=== PATIENT | female | born 1940 | race Caucasian/White ===

== ENCOUNTER 2023-04-24 23:13 | Inpatient (IN) | payer MEDICARE, BC, SELFPAY ==
[2023-04-24] VITALS (11 sets, daily range): BP systolic 100–142; BP diastolic 36–77
[2023-04-24 22:15] LABS: % Basophils 0.3 % (0-2); % Eosinophils 0.6 % (0-6); % Immature Granulocytes 1.2 % (0-0.5); % Lymphocytes 14.3 % (20.5-51.1); % Monocytes 6.1 % (1.7-9.3); % Neutrophils 77.5 % (42.2-75.2); Absolute Eosinophils 0.1 10^3/uL (0-0.7); Absolute Immature Granulocytes 0.1 10^3/uL (0-0.05); Absolute Lymphocytes 1.3 10^3/uL (1.2-3.4); Absolute Monocytes 0.6 10^3/uL (0.1-0.6); Absolute Neutrophils 6.9 10^3/uL (1.4-6.5); Hematocrit 38.6 % (37.0-47.0); Hemoglobin 12.5 g/dL (12.0-16.0); Mean Corp Hgb Conc. 32.4 g/dL (33.0-37.0); Mean Corpuscular Hgb 26.6 pg (27.0-31.0); Mean Corpuscular Volume 82.1 fL (81.0-99.0); Nucleated Red Blood Cells % 0 %; Red Cell Dist. Width 18.6 % (11.5-14.5)
[2023-04-24 22:26] LABS: ALT (SGPT) 40 U/L (0-35); AST (SGOT) 29 U/L (14-36); Albumin 2.5 g/dl (3.5-5.0); Alkaline Phosphatase 79 U/L (38-126); Blood Urea Nitrogen 19 mg/dl (7-17); Calcium 9.5 mg/dl (8.4-10.2); Carbon Dioxide 33 mmol/L (22-30); Chloride 98 mmol/L (98-107); Glucose 115 mg/dl (70-99); Platelet Count 16 10^3/uL (130-400); Potassium 3.5 mmol/L (3.5-5.1); Sodium 134 mmol/L (135-145); Total Bilirubin 1.1 mg/dl (0.2-1.3); Total Protein 6.4 g/dl (6.3-8.2); eGFR > 60.00
--- NOTE | 2023-04-24 22:55 | ED.GENMED ---
History of Present Illness
General
Chief Complaint: Abnormal Lab Value
Source: patient, family (Abilio Bal via telephone), physician (Dr. Darrius Mayfield,transfer records) and shelter records
Exam Limitations: dementia
Time Seen by Provider: 04/24/23 22:05
Nursing documentation reviewed up to this point in time: agreed with
Travel History
Have you had any contact with someone who has COVID-19?: No
Do you have any symptoms of coronavirus? Fever > 100 degrees, chills, cough, shortness of breath, sore throat, loss of taste or smell, muscle aches, or headache?: No
History of Present Illness
History of Present Illness:
Patient resident of [facility] dementia unit, scented today for severe thrombocytopenia. Her platelet levels were drawn as an outpatient today. They were 12. Nursing sent her into the emergency department for evaluation. Patient has past
medical history significant for PEs, hypertension, cirrhosis, colitis. She is a poor historian and history is limited to previous records.
Past History
Past History
ED Past Medical History: HTN and Other
ED Past Surgical History: None
Social History
Tobacco: Non-smoker
Alcohol: None
Drug: None
Personal:
Living: with family
Review of Systems
Review of Systems
Allergies reviewed?: Yes
Unable to obtain full review of systems at this time due to: dementia
All Other Systems: Not applicable
Constitutional: Reports fatigue
Phy Exam
General Physical Exam
General Presentation: well appearing and mild distress
General age: appears older than age
General Skin: warm and dry
General Mental: alert, confused and usual mental status
General Hydration: appears well hydrated
Cardiovascular Exam
Cardiovascular Exam: regular rate/rhythm
Pulmonary Exam
Pulmonary Exam: lungs clear and no respiratory distress
Gastrointestinal Exam
Gastrointestinal Exam: normal bowel sounds and non tender
Neurological Exam
Neurological Exam: confused
Musculoskeletal Exam
Musculoskeletal Exam: full ROM
Skin Exam
Skin Exam: pallor
Psychiatric Exam
Psychiatric Exam: labile
Course
Orders/Labs/Results
Orders:
Orders
04/24/23 21:55
IV Insert/Care/Rem.- Treatment PRN
04/24/23 22:05
Type+Screen Urgent
Complete Blood Count/With Diff Urgent
Comprehensive Metabolic Panel Urgent
04/24/23 22:56
Blood Bank Products [* Blood Bank Products] Urgent
Blood Bank Products: *Plt Single Donor Leuko
Quantity: 1
Transfuse Today: Yes
Reason: Thrombocytopenia
04/24/23 23:13
Admit/Transfer Patient As Directed
Co-Sign Provider:
Level of Care: Inpatient admission
Assign to:: Medical/Surgical
Physician / Group: marva
Diagnosis: thrombocytopenia
Reason for Hospitalization: thrombocytopenia
Expected length of stay greater than two midnights?: Yes
ELOS- Estimated Length of Stay in days: 2
I certify the patient meets the requirements for IP care: Yes
04/24/23 23:14
Code Status As Directed
Resuscitation Status: Full Code
Abnormal Lab Results
04/24/23
22:05
MCH 26.6 L pg
(27.0-31.0)
MCHC 32.4 L g/dL
(33.0-37.0)
RDW 18.6 H %
(11.5-14.5)
Plt Count 16 L* 10^3/uL
(130-400)
Abs Immat Gran (auto) 0.1 H 10^3/uL
(0-0.05)
Absolute Neuts (auto) 6.9 H 10^3/uL
(1.4-6.5)
Immature Gran % 1.2 H %
(0-0.5)
Neutrophils % 77.5 H %
(42.2-75.2)
Lymphocytes % 14.3 L %
(20.5-51.1)
Sodium 134 L mmol/L
(135-145)
Carbon Dioxide 33 H mmol/L
(22-30)
BUN 19 H mg/dl
(7-17)
Glucose 115 H mg/dl
(70-99)
ALT 40 H U/L
(0-35)
Albumin 2.5 L g/dl
(3.5-5.0)
04/24/23 22:05
04/24/23 22:05
Vital Signs
Initial and Last Documented VS:
Initial Vital Signs
Pulse Resp BP Pulse Ox
80 17 100/36 93
04/24/23 21:55 04/24/23 21:55 04/24/23 21:55 04/24/23 21:55
Last Documented Vital Signs
Temp Pulse Resp BP Pulse Ox
98.2 F 81 20 142/68 95
04/24/23 23:26 04/24/23 23:26 04/24/23 23:26 04/24/23 23:26 04/24/23 23:11
*Critical Care Note
Total Time (30-74mins, 75-104mins- exclusive of procedures): Not Applicable
Update Note
Update Note:
Spoke with Abilio Schwartz, who gave verbal consent for blood administration specifically platelets. This was witnessed over the phone by nursing. Consent is on the chart.
ED Attending Note
-
Portions of this chart may have been created with voice recognition software.� Occasional wrong word or��sound alike� substitutions may have occurred due to the inherent limitations of voice recognition software.
Discharge Plan
Departure
Patient Disposition: Admit
Date of Disposition: 04/24/23
Time of Disposition: 23:16
Admit to: Telemetry
Presentation/result/management discussed w/ accepting MD/DO: Hospitalist
Discharge Problem:
Thrombocytopenia, Dementia
Prescriptions:
No Action
metoprolol succinate 50 MG tablet extended release 24 hr
50 mg PO DAILY
mesalamine [Lialda] 1.2 GM tablet,delayed release (DR/EC)
2.4 g PO DAILY
furosemide 40 mg Tablet
40 mg PO DAILY
acetaminophen 325 mg Tablet
650 mg PO Q6H PRN (Reason: mild pain/temp>100)
ipratropium-albuterol 0.5 mg-3 mg(2.5 mg base)/3 mL Solution For Nebulization
3 ml INHALATION R BID
diltiazem HCl [Cardizem CD] 240 mg Capsule,Extended Release 24hr
240 mg PO DAILY
olanzapine [Zyprexa] 5 mg Tablet
5 mg PO HS
Triad Wound Dressing Paste
1 applic TOPICAL TID
Rx Instructions:
apply to inner buttocks
triamcinolone acetonide 0.1 % cream
1 applic TOPICAL BID
Rx Instructions:
apply to b/l LE for skin irritation
magnesium hydroxide [Milk of Magnesia] 400 mg/5 mL Suspension
30 ml PO HS PRN (Reason: if no bm x 3 days)
bisacodyl [Dulcolax (bisacodyl)] 10 mg Suppository
10 mg MD DAILY PRN (Reason: if no results for MOM)
cephalexin [Keflex] 500 mg Capsule
500 mg PO TID
nystatin 100,000 unit/gram Powder
1 applic TOPICAL DAILY
Rx Instructions:
apply to abdominal folds
losartan 100 mg Tablet
100 mg PO DAILY
aripiprazole [Abilify] 10 mg Tablet
10 mg PO DAILY
melatonin 5 mg Tablet
5 mg PO HS
Myrbetriq 50 mg tablet extended release 24 hr
50 mg PO DAILY
Interventions
Interventions:
*Risk Screen - Suicide Last Done: 04/24/23 21:55
*General Assessment Last Done: 04/24/23 21:55
*Neglect/Abuse Screening Last Done: 04/24/23 21:55
ED- Fall Risk Assessment Last Done: 04/24/23 21:55
*ED COVID-19 Vaccine History Last Done: 04/24/23 21:55
--- NOTE | 2023-04-24 23:15 | HPS.HSE ---
Addendum entered and electronically signed by Valentine Hawk MD 04/24/23 23:46:
Discussed with at bedside. Patient was apparently started on a new dementia medication 2 weeks ago. She was also started on Keflex within the past few days for what was thought to be worsening of her lymphedema on the right lower
extremity. Toes on the right foot purple discoloration without any foul smell or tenderness or discharge. There is also purpuric rash extending up the right leg. I am inclined to think this is due to thrombocytopenia rather than infection.
Continue Keflex.
denies any history of low platelets or history of blood transfusions.
Original Note:
Family Physician
-
Family Physician:
Chief Complaint
-
thrombocytopenia
History of Present Illness
82-year-old female past medical history of dementia, pulmonary embolism, primary biliary cirrhosis, ulcerative colitis, GERD, hypertension, diverticulosis, obesity presenting with thrombocytopenia presenting from [facility] dementia unit for
severe thrombocytopenia. She had outpatient labs which showed thrombocytopenia with platelets of 12 so she was sent to the emergency room.
Patient cannot provide any history due to dementia. Her is going to come to the hospital soon. She does not know why she is in the hospital. She denies any pain or bleeding.
Medical History
Past Medical History
Past Medical History: Reports Other (dementia, pulmonary embolism, primary biliary cirrhosis, ulcerative colitis, GERD, hypertension, diverticulosis, obesity)
Past Surgical History: Reports None
Social History
Tobacco: Non-smoker
Alcohol: None
Drug: None
Family History
Family History: Not pertinent
Allergies / Home Medications
Allergies reflects when Allergies were last updated in [facility].
Home Medications with original date entered in [facility]
Allergy/Medication List:
Allergies
Allergy/AdvReac Type Severity Reaction Status Date / Time
No Known Allergies Allergy Verified 05/16/18 10:34
Home Medications
mesalamine 1.2 gram tablet,delayed release (Lialda) 2.4 g PO DAILY 05/16/18
metoprolol succinate 50 mg tablet,extended release 24 hr 50 mg PO DAILY 05/16/18
acetaminophen 325 mg tablet 650 mg PO Q6H PRN mild pain/temp>100 04/24/23
aripiprazole 10 mg tablet (Abilify) 10 mg PO DAILY 04/24/23
bisacodyl 10 mg rectal suppository (Dulcolax (bisacodyl)) 10 mg ME DAILY PRN if no results for MOM 04/24/23
cephalexin 500 mg capsule 500 mg PO TID 04/24/23
diltiazem HCl 240 mg capsule,extended release 24 hr (Cardizem CD) 240 mg PO DAILY 04/24/23
furosemide 40 mg tablet 40 mg PO DAILY 04/24/23
ipratropium 0.5 mg-albuterol 3 mg (2.5 mg base)/3 mL nebulization soln 3 ml inhalation R BID 04/24/23
losartan 100 mg tablet 100 mg PO DAILY 04/24/23
magnesium hydroxide 400 mg/5 mL oral suspension (Milk of Magnesia) 30 ml PO HS PRN if no bm x 3 days 04/24/23
melatonin 5 mg tablet 5 mg PO HS 04/24/23
mirabegron 50 mg tablet,extended release 24 hr (Myrbetriq) 50 mg PO DAILY 04/24/23
nystatin 100,000 unit/gram topical powder 1 applic topical DAILY 04/24/23
olanzapine 5 mg tablet (Zyprexa) 5 mg PO HS 04/24/23
triamcinolone acetonide 0.1 % topical cream 1 applic topical BID 04/24/23
wound dressings (Triad Wound Dressing paste) 1 applic topical TID 04/24/23
Review of Systems
-
History Source: Patient
A 12 point ROS was completed and negative except as noted: Yes
Constitutional: Reports No Symptoms
EENT: Reports No Symptoms
Respiratory: Reports No Symptoms
Cardiac: Reports No Symptoms
Abdomen/GI: Reports No Symptoms
: Reports No Symptoms
Musculoskeletal: Reports No Symptoms
Skin: Reports No Symptoms
Neurological: Reports No Symptoms
Endocrine: Reports No Symptoms
Hematologic/Lymphatic: Reports No Symptoms
Psych: Reports No Symptoms
Physical Exam
Vital Signs
Vital Signs
Temp Pulse Resp BP Pulse Ox
98.3 F 79 18 131/77 95
04/24/23 23:11 04/24/23 23:11 04/24/23 23:11 04/24/23 23:11 04/24/23 23:11
Physical Exam
General: Well Developed, Well Nourished and No Apparent Distress
HEENT: NormoCephalic, Moist mucous membranes and Atraumatic
Respiratory: Clear
Cardiac: S1/S2 and Regular Rhythm; No Murmur or Rub
GI: Soft, Non Tender, Non Distended and Normal Bowel Sounds; No Organomegaly
Rectal: Deferred by Provider
Musculoskeletal: No Clubbing, No Cyanosis and No Edema
Skin: No Rash
Neuro: Nonfocal/grossly intact
Laboratory Results
-
04/24/23 22:05
04/24/23 22:05
Laboratory Results
Total Bilirubin 1.1 mg/dl (0.2-1.3) 04/24/23 22:05
AST 29 U/L (14-36) 04/24/23 22:05
ALT 40 U/L (0-35) H 04/24/23 22:05
Alkaline Phosphatase 79 U/L (38-126) 04/24/23 22:05
Data Reviewed
-
Lab Data: Labs Reviewed by me
Old Records: Reviewed
Impression/Plan
-
IMPRESSION:
PLAN:
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
-Platelets of 16 from 12 from outpatient labs
-No evidence of bleeding apart from mild bruising lower extremities and abdomen
-1 unit platelet transfusion
-Need to get further history from and primary care records as no history available currently
-Hematology consulted
# Currently on Keflex
-History unable to be obtained at this time regarding this
Primary biliary cirrhosis
Ulcerative colitis
-Continue mesalamine
History of pulmonary embolism
Chronic lymphedema
-Continue topical wound care
-Continue Lasix
GERD
Essential hypertension
-Continue diltiazem, losartan, metoprolol
Diverticulosis
Obesity
Dementia
Psychiatric
-Continue Abilify, olanzapine
Full code
DVT prophylaxis�none
Regular diet
[2023-04-25] VITALS (8 sets, daily range): BP systolic 125–173; BP diastolic 50–100
--- NOTE | 2023-04-25 01:10 | PTCARENOTE ---
Pt arrived from ED via stretcher to bed. Pt is AAOx2 disoriented to time, VSS, w/o complaints of pain. Pt is oriented to room, resting comfortably with call rios within reach and spouse at bedside.
[2023-04-25 02:59] LABS: COVID-19 Antigen Negative (Negative)
[2023-04-25 07:09] LABS: % Basophils 0.7 % (0-2); % Eosinophils 1.1 % (0-6); % Immature Granulocytes 1.1 % (0-0.5); % Lymphocytes 17.9 % (20.5-51.1); % Neutrophils 72.2 % (42.2-75.2); Absolute Eosinophils 0.1 10^3/uL (0-0.7); Absolute Immature Granulocytes 0.1 10^3/uL (0-0.05); Absolute Lymphocytes 1.1 10^3/uL (1.2-3.4); Absolute Monocytes 0.4 10^3/uL (0.1-0.6); Absolute Neutrophils 4.4 10^3/uL (1.4-6.5); Hematocrit 35.8 % (37.0-47.0); Hemoglobin 11.4 g/dL (12.0-16.0); Mean Corp Hgb Conc. 31.8 g/dL (33.0-37.0); Mean Corpuscular Hgb 26.6 pg (27.0-31.0); Mean Corpuscular Volume 83.4 fL (81.0-99.0); Nucleated Red Blood Cells % 0 %; Red Blood Cell Count 4.29 10^6/uL (4.20-5.40); Red Cell Dist. Width 18.6 % (11.5-14.5); White Blood Cell Count 6.1 10^3/uL (4.8-10.8)
[2023-04-25 07:13] LABS: Platelet Count 12 10^3/uL (130-400)
[2023-04-25 07:34] LABS: ALT (SGPT) 34 U/L (0-35); AST (SGOT) 24 U/L (14-36); Albumin 2.1 g/dl (3.5-5.0); Alkaline Phosphatase 71 U/L (38-126); Blood Urea Nitrogen 15 mg/dl (7-17); Calcium 8.9 mg/dl (8.4-10.2); Carbon Dioxide 31 mmol/L (22-30); Chloride 100 mmol/L (98-107); Glucose 94 mg/dl (70-99); Potassium 3.4 mmol/L (3.5-5.1); Sodium 134 mmol/L (135-145); Total Bilirubin 0.9 mg/dl (0.2-1.3); Total Protein 5.5 g/dl (6.3-8.2); eGFR > 60.00
[2023-04-25] MEDS: DUONEB INH (07:37)
--- NOTE | 2023-04-25 08:50 | CON.ONC ---
Addendum entered and electronically signed by Abilio Cervantes MD 04/25/23 11:56:
Hematology Addendum:
Patient seen and examined, agree w/ CHIEF CREDIT OFFICER note and plan as outlined.
-reviewed chart from [facility] hospitalization in February - on 03/15 - plts were 274,000
-peripheral blood smear was reviewed - no evidence of microangiopathic RBC changes
-reticulocyte count normal/ LDH just above upper limit of normal
-keflex started recently at [place] for cellulitis - stop keflex
-acute thrombocytopenia in the setting of recent keflex for cellulitis vs. ITP vs. component of infection/ inflammation w/ cellulitis
-drug induced thrombocytopenia does not respond well to steroids - though w/ ITP on differential- will start moderate dose steroids
-dexamethasone 10mg x1
-would like to avoid high dose dexamethasone w/ significant edema and question of ongoing cellulitis
-could consider ID consult for assistance w/ management of cellulitis
-transfuse 1 unit single donor plts today
-follow CBC
Original Note:
Impression
Impression
Acute thrombocytopenia
Bilateral PE started on Lovenox at [facility] (03/15/2023)
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
Heparin exposure during admission (02/2023)
Chronic lymphedema
Hx biliary cirrhosis
Advanced dementia
Morbid obesity
Plan
Plan
2/2 Platelets 12
s/p 1unit PLTs
Transfuse as needed to maintain PLT >10
Bleeding precautions
Follow CBC w/ diff daily
Discontinue Keflex
Hold Lovenox
Avoid heparin
Review peripheral blood smear
Consider steroids/IVIG
Additional labs pending
Records reviewed from [facility]
We will follow.
Patient History
History of Present Illness
Tran Chaney is an 82 year old female who presented to the ER last evening 04/24 from [facility] due to abnormal outpatient CBC with platelet count of 12. She was recently admitted at [facility] on 03/15/23 for bilateral PE. She was on a
heparin gtt transitioned to Lovenox. Platelets during the [facility] admission were at baseline of 274. She was evaluated by Dr. Gee with [facility] while admitted. She has also been evaluated in the past by Dr. Jeremias Tyler with [facility] in 2016
for PE. She was prescribed Eliquis at the time. This PE event was provoked by car travel to [place]. She has history of UC. It was recommended she continue lifelong anticoagulation however there is questionable compliance due to dementia and
refusal to take medications at times. Thrombophilia testing was not performed. She was prescribed Keflex in March (unclear date) for presumed lower extremity cellulitis. Keflex is being held at this time.
Past-Medical/Surgical History
Advanced dementia
Hx pulmonary embolism (2015, 2022)
Primary biliary cirrhosis
[place]
Fatty liver
Chronic lymphedema
GERD
Hypertension
Ulcerative colitis (mesalamine)
Diverticulosis
Morbid obesity
Patient Medication
Medication Instructions Recorded Confirmed Last Taken Type
mesalamine 1.2 gram tablet,delayed 2.4 g PO DAILY 05/16/18 04/24/23 Unknown History
release (Lialda)
metoprolol succinate 50 mg 50 mg PO DAILY 05/16/18 04/24/23 Unknown History
tablet,extended release 24 hr
acetaminophen 325 mg tablet 650 mg PO Q6H PRN mild 04/24/23 04/24/23 Unknown History
pain/temp>100
aripiprazole 10 mg tablet (Abilify) 10 mg PO DAILY 04/24/23 04/24/23 Unknown History
bisacodyl 10 mg rectal suppository 10 mg [place] DAILY PRN if no results 04/24/23 04/24/23 Unknown History
(Dulcolax (bisacodyl)) for MOM
cephalexin 500 mg capsule 500 mg PO TID 04/24/23 04/24/23 Unknown History
diltiazem HCl 240 mg 240 mg PO DAILY 04/24/23 04/24/23 Unknown History
capsule,extended release 24 hr
(Cardizem CD)
furosemide 40 mg tablet 40 mg PO DAILY 04/24/23 04/24/23 Unknown History
ipratropium 0.5 mg-albuterol 3 mg 3 ml inhalation R BID 04/24/23 04/24/23 Unknown History
(2.5 mg base)/3 mL nebulization
soln
losartan 100 mg tablet 100 mg PO DAILY 04/24/23 04/24/23 Unknown History
magnesium hydroxide 400 mg/5 mL 30 ml PO HS PRN if no bm x 3 days 04/24/23 04/24/23 Unknown History
oral suspension (Milk of Magnesia)
melatonin 5 mg tablet 5 mg PO HS 04/24/23 04/24/23 Unknown History
mirabegron 50 mg tablet,extended 50 mg PO DAILY 04/24/23 04/24/23 Unknown History
release 24 hr (Myrbetriq)
nystatin 100,000 unit/gram topical 1 applic topical DAILY 04/24/23 04/24/23 Unknown History
powder
olanzapine 5 mg tablet (Zyprexa) 5 mg PO HS 04/24/23 04/24/23 Unknown History
triamcinolone acetonide 0.1 % 1 applic topical BID 04/24/23 04/24/23 Unknown History
topical cream
wound dressings (Triad Wound 1 applic topical TID 04/24/23 04/24/23 Unknown History
Dressing paste)
Active Medications
Generic Name Dose Route Start Last Admin
Trade Name Freq PRN Reason Stop Dose Admin
Acetaminophen 650 mg 04/25/23 00:47
Acetaminophen 325 Mg Tablet PO 05/23/23 00:46
Q6H PRN
mild pain/temp>100
Albuterol/Ipratropium 3 ml 04/25/23 08:00 04/25/23 07:37
Ipratropium 0.5/Albuterol 3 Mg (3 Ml Ampul) INH 05/23/23 07:59 Not Given
R BID RENEE
Protocol
Aripiprazole 10 mg 04/25/23 08:00
Aripiprazole 10 Mg Tablet PO 05/23/23 07:59
DAILY RENEE
Bisacodyl 10 mg 04/25/23 00:47
Bisacodyl 10 Mg Rectal Suppository RECTAL 05/23/23 00:46
DAILY PRN
if no results for MOM
Cephalexin HCl 500 mg 04/25/23 08:00
Cephalexin 500 Mg Capsule PO
TID RENEE
Diltiazem HCl 240 mg 04/25/23 08:00
Diltiazem 240 Mg Extended Release (24 H) Capsule PO 05/23/23 07:59
DAILY RENEE
Furosemide 40 mg 04/25/23 08:00
Furosemide 40 Mg Tablet PO 05/23/23 07:59
DAILY RENEE
Losartan Potassium 100 mg 04/25/23 08:00
Losartan 100 Mg Tablet PO 05/23/23 07:59
DAILY RENEE
Magnesium Hydroxide 30 ml 04/25/23 00:47
Milk Of Magnesia 30 Ml Cup PO 05/23/23 00:46
HS PRN
if no bm x 3 days
Melatonin 5 mg 04/25/23 22:00
Melatonin 5 Mg Tablet PO 05/23/23 21:59
HS RENEE
Metoprolol Succinate 50 mg 04/25/23 08:00
Metoprolol 50 Mg Extended Release Tablet PO 05/23/23 07:59
DAILY RENEE
Miconazole Nitrate 1 applic 04/25/23 08:00
Miconazole Powder Bottle TOPICAL 05/23/23 07:59
DAILY RENEE
*Pom* (Mesalamine [ 2.4 grams 04/25/23 08:00
Lialda] 1.2 Gm PO 05/23/23 07:59
Tablet,Delayed DAILY RENEE
Release (Dr/Ec))
*Pom* (Wound 1 applic 04/25/23 08:00
Dressings [Triad TOPICAL 05/23/23 07:59
Wound Dressing] TID RENEE
Paste)
Olanzapine 5 mg 04/25/23 22:00
Olanzapine 5 Mg Tablet PO 05/23/23 21:59
HS RENEE
Sodium Chloride 0 flush 04/25/23 01:00
Sodium Chloride 0.9% (Flush) Syringe IV 05/23/23 00:59
PER PROTOCOL RENEE
Tolterodine Tartrate 4 mg 04/25/23 08:00
Tolterodine 4 Mg Extended Release Capsule PO 05/23/23 07:59
DAILY RENEE
Triamcinolone Acetonide 1 applic 04/25/23 08:00
Tramcinolone Acetonide 0.1% (Cream) 15 Gram Tube TOPICAL 05/23/23 07:59
BID RENEE
Review of Systems
-
Unable to obtain full review of systems at this time due to: Dementia and Acuity
History Source: Snf, Transfer Record, Physician and Coordinated Provider
Constitutional: Reports No Symptoms
EENT: Reports No Symptoms
Respiratory: Reports No Symptoms
Cardiac: Reports No Symptoms
GI: Reports No Symptoms
Breast: Reports N/A
: Reports No Symptoms
Musculoskeletal: Reports Edema
Skin: Reports Rash and Sores
Neuro: Reports No Symptoms
Endocrine: Reports No Symptoms
Hematologic/Lymphatic: Reports Bruising and Lymphedema
Allergy / Immunology: Reports No Symptoms
Psych: Reports Anxious
Physical Exam
-
RN and WOCN at bedside performing AM care. patient is turned on her side. Reviewed [facility] medical records with hospitalist
General: Well Developed, Well Nourished, No Apparent Distress, Appears Chronically Ill and Morbidly Obese; Negative Fever or Chills
Cardiology: Normal Sinus Rhythm
Pulmonary: Other (diminished)
GI: Other (obese)
Genito-Urinary: Other (incontinent)
Musculoskeletal: Edema, Right Lower Extrem (+3 pitting) and Edema, Left Lower Extrem (+3 pitting)
Extremities: Pulses Present and Edema
Neurology: Non Focal
Skin: Warm, Rash (erythema b/l legs), Ulcers and Other (toe wounds)
Hematologic / Lymphatic: Lymphadenopathy (b/l legs)
Psych: Confused
Labs
Lab Results
WBC 6.1 10^3/uL (4.8-10.8) 04/25/23 06:40
RBC 4.29 10^6/uL (4.20-5.40) 04/25/23 06:40
Hgb 11.4 g/dL (12.0-16.0) L 04/25/23 06:40
Hct 35.8 % (37.0-47.0) L 04/25/23 06:40
MCV 83.4 fL (81.0-99.0) 04/25/23 06:40
MCH 26.6 pg (27.0-31.0) L 04/25/23 06:40
MCHC 31.8 g/dL (33.0-37.0) L 04/25/23 06:40
RDW 18.6 % (11.5-14.5) H 04/25/23 06:40
Plt Count 12 10^3/uL (130-400) L* D 04/25/23 06:40
MPV Not Reportable 04/25/23 06:40
Abs Immat Gran (auto) 0.1 10^3/uL (0-0.05) H 04/25/23 06:40
Absolute Neuts (auto) 4.4 10^3/uL (1.4-6.5) 04/25/23 06:40
Absolute Lymphs (auto) 1.1 10^3/uL (1.2-3.4) L 04/25/23 06:40
Absolute Monos (auto) 0.4 10^3/uL (0.1-0.6) 04/25/23 06:40
Absolute Eos (auto) 0.1 10^3/uL (0-0.7) 04/25/23 06:40
Absolute Basos (auto) 0.0 10^3/uL (0-0.2) 04/25/23 06:40
Immature Gran % 1.1 % (0-0.5) H 04/25/23 06:40
Neutrophils % 72.2 % (42.2-75.2) 04/25/23 06:40
Lymphocytes % 17.9 % (20.5-51.1) L 04/25/23 06:40
Monocytes % 7.0 % (1.7-9.3) 04/25/23 06:40
Eosinophils % 1.1 % (0-6) 04/25/23 06:40
Basophils % 0.7 % (0-2) 04/25/23 06:40
Creatinine 0.6 mg/dL (0.6-1.0) 04/25/23 06:40
4Ts Score for Heparin-Induced Thrombocytopenia from [email or web address] on 04/25/2023
All calculations should be rechecked by clinician prior to use
RESULT SUMMARY:
5 points
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
Vital Signs
Vital Signs
Temp Pulse Resp BP Pulse Ox
98.8 F 72 20 151/69 92
04/25/23 07:20 04/25/23 07:20 04/25/23 07:20 04/25/23 07:20 04/25/23 07:20
[2023-04-25] MEDS: LASIX 40 MG PO (09:41)
[2023-04-25] MEDS: CARDIZEM CD 240 MG PO (09:41)
[2023-04-25] MEDS: KCL ELIXIR 40 MEQ PO (09:42)
[2023-04-25] MEDS: TOPROL XL 50 MG PO (09:42)
[2023-04-25] MEDS: DETROL LA 4 MG PO (09:43)
[2023-04-25] MEDS: ABILIFY 10 MG PO (09:43)
[2023-04-25] MEDS: COZAAR 100 MG PO (09:43)
[2023-04-25] MEDS: DESENEX/MITRAZOL/ZEASORB 1 APPLIC TOPICAL ×2 (10:04→22:12)
[2023-04-25] MEDS: ARISTOCORT/TRIAMCINOLONE 0.1% CREAM 1 APPLIC TOPICAL ×2 (10:06→22:09)
--- NOTE | 2023-04-25 10:18 | WOUNDNOTE ---
L THIGH (UPPER ANTERIOR MEDIAL)
--- NOTE | 2023-04-25 10:18 | WOUNDNOTE ---
SACRAL/COCCYX/BUTTOCKS
--- NOTE | 2023-04-25 10:19 | WOUNDNOTE ---
LEGS (POSTERIOR)(with photo flash)
--- NOTE | 2023-04-25 10:20 | WOUNDNOTE ---
[facility] RN note: Patient admitted with thrombocytopenia, platelet count 12, purpura rash RLE/foot/toes. Patient admitted from [facility].
See H&P for complete history.
PMH: LE lymphedema (on po Keflex), dementia, PE, biliary cirrhosis, ulcerative colitis, diverticulitis, obesity.
Wound Location and type/assessment: Patient admitted with: stage 3 vs unstageable lower sacral/coccyx/buttocks pressure injuries with yellow fibrin slough and some pink tissue. MASD breast folds, groin folds. L anterior upper medial thigh red skin
r/t friction and moisture. R dorsal 2,3, 4th toes with blood blisters, trace ss drainage. R lateral posterior calf with scattered pink dermal ulcers r/t edema. R lateral heel brown dry ulcer suspect dried blood blister (stage 2 vs unstageable).
+Purpura R medial lower thigh, RLE. L lateral calf with several small scabbed ulcers r/t lymphedema. +Hemosiderosis Le's. +3 LE edema. Pedal pulses heard via portable Doppler (R>L), toes warm. R posterior thigh linear deep dermal ulcer, pink and
scabbed suspect r/t edema and friction. L posterior hip skin lesion, no redness, no drainage ( freddie?). L heel blanchable red. Bruises lower abdomen. R elbow scabbed abrasions.
Appetite: good.
Pressure redistribution devices in place: [employer] Accumax. Patient cannot turn self in bed.
Plan: Silicone foam applied to sacral/coccyx/buttocks and R posterior thigh wounds. Le's cleansed with saline, Triamcinolone cream applied. R toes blisters cleansed gently with saline then no sting barrier wipe. Foam dressing applied to heels.
Waffle air overlay applied and patient turned to R semi side lying position with help from RN Juana and PCT July. Dr. Kelsey was in during visit who evaluated patient; discussed LE edema and hospitalist stated no compression at this time d/t low
platelets; hospitalist approved local skin/wound care. Le's elevated off bed with pillows with air chair cushion on top.
Care plan to be updated and will follow as needed.
Note to case management of equipment requested for discharge: Air mattress at SNF if not already in place.
Recommend follow up at wound care center upon discharge.
--- NOTE | 2023-04-25 10:20 | WOUNDNOTE ---
R BREAST FOLD (OUTER)
--- NOTE | 2023-04-25 10:21 | WOUNDNOTE ---
R 4TH TOE (PLANTAR)
--- NOTE | 2023-04-25 10:23 | WOUNDNOTE ---
SACRAL/COCCYX/BUTTOCKS (with photo flash)
--- NOTE | 2023-04-25 10:23 | WOUNDNOTE ---
[facility] RN note: Patient admitted with thrombocytopenia, platelet count 12, purpura rash RLE/foot/toes. Patient [place] [facility]
See H&P for complete history.
PMH: LE lymphedema (on po Keflex), dementia, PE, biliary cirrhosis, ulcerative colitis, diverticulitis, obesity.
Wound Location and type/assessment: Patient admitted with: stage 3 vs unstageable lower sacral/coccyx/buttocks pressure injuries with yellow fibrin slough and some pink tissue. MASD breast folds, groin folds. L anterior upper medial thigh red skin
r/t friction and moisture. R dorsal 2,3, 4th toes with blood blisters, trace ss drainage. R lateral heel brown dry ulcer suspect dried blood blister (stage 2 vs unstageable). +Purpura R medial lower thigh, RLE. L lateral calf with several small
scabbed ulcers r/t lymphedema. +Hemosiderosis Le's. +3 LE edema. Pedal pulses heard via portable Doppler (R>L), toes warm. R posterior thigh linear deep dermal ulcer, pink and scabbed suspect r/t edema and friction. L posterior hip skin lesion, no
redness, no drainage ( freddie?). L heel blanchable red. Bruises lower abdomen. R elbow scabbed abrasions.
Appetite: good.
Pressure redistribution devices in place: [employer] Accumax. Patient cannot turn self in bed.
Plan: Silicone foam applied to sacral/coccyx/buttocks and R posterior thigh wounds. Le's cleansed with saline, Triamcinolone cream applied. R toes blisters cleansed gently with saline then no sting barrier wipe. Foam dressing applied to heels.
Waffle air overlay applied and patient turned to R semi side lying position with help from RN Juana and PCT July. Dr. Kelsey was in during visit who evaluated patient; discussed LE edema and hospitalist stated no compression at this time d/t low
platelets; hospitalist approved local skin/wound care. Le's elevated off bed with pillows with air chair cushion on top.
Care plan to be updated and will follow as needed.
Note to case management of equipment requested for discharge: Air mattress at SNF if not already in place.
Recommend follow up at wound care center upon discharge.
[2023-04-25 10:34] LABS: Reticulocyte Count 1.6 % (0.4-2.8)
[2023-04-25 10:41] LABS: PT 15.1 Sec (11.4-14.6)
[2023-04-25 10:50] LABS: D-Dimer 10.08 ug/mlFEU (0.00-0.50)
[2023-04-25 10:59] LABS: LDH 250 U/L (120-246)
[2023-04-25 11:10] LABS: Fibrinogen 438 MG/DL (199-459)
--- NOTE | 2023-04-25 12:15 | CM ---
Chart reviewed. Spoke with pt and at bedside.
Pt is currently at [facility] short term.
Plan is to return to [facility]
Spoke with Jazmine at [facility] - pt is short term to [facility]
Pt seen by wound care - recommending air mattress for wound
Jazmine made aware
Referral sent in care port
Plan - return to [facility] when medically ready
[2023-04-25] MEDS: DECADRON 10 MG IV (13:05)
--- NOTE | 2023-04-25 13:26 | W.PN.HOSP.TC ---
Addendum entered and electronically signed by Russel Kelsey MD 04/26/23 13:03:
IGG
Original Note:
Today's Communication/Plan
-
f/u ITP labs
Platelets today
Steroids
Monitor CBC
Assessment / Plan
Assessment / Plan
Physical Exam
General: Well Developed, Well Nourished and No Apparent Distress
HEENT: NormoCephalic, Moist mucous membranes and Atraumatic
Respiratory: Clear
Cardiac: S1/S2 and Regular Rhythm; No Murmur or Rub
GI: Soft, Non Tender, Non Distended and Normal Bowel Sounds; No Organomegaly
Rectal: Deferred by Provider
Musculoskeletal: No Clubbing, No Cyanosis and No Edema
Skin: No Rash
Neuro: Nonfocal/grossly intact
PLAN:
# Severe thrombocytopenia possibly ITP unclear etiology v infection/inflammation v drug induced
-Platelets of 16 from 12 from outpatient labs
-Possibly secondary to Keflex although could have many culprits
� Was supposed to be on Lovenox for PE in February 2023, platelets were 274,000 at that time
� No evidence of microangiopathic RBC changes on smear
-No evidence of bleeding apart from mild bruising lower extremities and abdomen
-1 unit platelet transfusion
-Start dexadrone, moderate dose steroids thereafter
-heme on board
-F/u cbc
# Currently on Keflex
-Stop abx
-legs b/l have erythema/purpura
- i do not believe this is celluitis; mor likely PVD in patient with chronic lymphedema
-Pulses palpable and LE not cold
#Hypokalemia
-monitor and replete
#Hyponatremia
-mild
-ctm
Primary biliary cirrhosis
Ulcerative colitis
-Continue mesalamine
History of pulmonary embolism
Chronic lymphedema
-Continue topical wound care
-Continue Lasix
GERD
Essential hypertension
-Continue diltiazem, losartan, metoprolol
Diverticulosis
Obesity
Dementia
Psychiatric
-Continue Abilify, olanzapine
Full code
DVT prophylaxis�none
Regular diet
Anticipated Discharge: > 48 hours
Subjective/Interval History
-
Date of Service: April 25, 2023
stop cephalexin. s/p 1u platelets
Objective Data
-
Labs:
Laboratory Results
04/25/23 04/25/23
06:40 10:15
WBC 6.1
Hgb 11.4 L
Hct 35.8 L
Plt Count 12 L* D
PT 15.1 H
INR 1.20
Sodium 134 L
Potassium 3.4 L
Chloride 100
Carbon Dioxide 31 H
BUN 15
Creatinine 0.6
Glucose 94
Calcium 8.9
Total Bilirubin 0.9
AST 24
ALT 34
Alkaline Phosphatase 71
Vital Signs:
Vital Signs
Temp Pulse Resp BP Pulse Ox
98.8 F 80 20 150/82 92
04/25/23 07:20 04/25/23 09:41 04/25/23 07:20 04/25/23 09:41 04/25/23 07:20
I&O
04/24/23 04/25/23 04/26/23
06:59 06:59 06:59
Intake Total 251 / 251
Output Total 300 / 300
Balance -49 / -49
Review of Systems
-
History Source: Patient
All other systems: Not reviewed unless documented
Data Reviewed
-
CT Scan: Image personally visualized and interpreted and Report Reviewed by me
Labs: Labs Reviewed by me
[2023-04-25] MEDS: DUONEB 3 ML INH (19:33)
[2023-04-25] MEDS: ZYPREXA 5 MG IM (21:30)
[2023-04-25] MEDS: MELATONIN PO (22:06)
[2023-04-26] VITALS (10 sets, daily range): BP systolic 120–143; BP diastolic 59–77
[2023-04-26] MEDS: ZYPREXA 5 MG IM ×2 (02:13→21:35)
[2023-04-26 07:34] LABS: % Basophils 0.1 % (0-2); % Immature Granulocytes 1.3 % (0-0.5); % Lymphocytes 8.3 % (20.5-51.1); % Monocytes 1.8 % (1.7-9.3); % Neutrophils 88.5 % (42.2-75.2); Absolute Immature Granulocytes 0.1 10^3/uL (0-0.05); Absolute Lymphocytes 0.8 10^3/uL (1.2-3.4); Absolute Monocytes 0.2 10^3/uL (0.1-0.6); Absolute Neutrophils 8.2 10^3/uL (1.4-6.5); Hematocrit 41.9 % (37.0-47.0); Hemoglobin 13.3 g/dL (12.0-16.0); Mean Corp Hgb Conc. 31.7 g/dL (33.0-37.0); Mean Corpuscular Hgb 26.9 pg (27.0-31.0); Mean Corpuscular Volume 84.8 fL (81.0-99.0); Nucleated Red Blood Cells % 0 %; Red Blood Cell Count 4.94 10^6/uL (4.20-5.40); Red Cell Dist. Width 18.2 % (11.5-14.5); White Blood Cell Count 9.3 10^3/uL (4.8-10.8)
[2023-04-26 08:02] LABS: Platelet Count 19 10^3/uL (130-400)
[2023-04-26] MEDS: LASIX 40 MG PO (08:06)
[2023-04-26] MEDS: CARDIZEM CD 240 MG PO (08:06)
[2023-04-26] MEDS: ABILIFY 10 MG PO (08:06)
[2023-04-26] MEDS: DETROL LA 4 MG PO (08:06)
[2023-04-26] MEDS: TOPROL XL 50 MG PO (08:07)
[2023-04-26] MEDS: COZAAR 100 MG PO (08:07)
[2023-04-26] MEDS: ARISTOCORT/TRIAMCINOLONE 0.1% CREAM 1 APPLIC TOPICAL ×2 (08:08→21:25)
[2023-04-26] MEDS: DESENEX/MITRAZOL/ZEASORB 1 APPLIC TOPICAL ×2 (08:08→21:26)
[2023-04-26 08:16] LABS: ALT (SGPT) 43 U/L (0-35); AST (SGOT) 25 U/L (14-36); Albumin 2.8 g/dl (3.5-5.0); Alkaline Phosphatase 90 U/L (38-126); Blood Urea Nitrogen 16 mg/dl (7-17); Calcium 9.9 mg/dl (8.4-10.2); Carbon Dioxide 34 mmol/L (22-30); Chloride 97 mmol/L (98-107); Glucose 142 mg/dl (70-99); Magnesium 2.3 mg/dl (1.6-2.3); Potassium 3.6 mmol/L (3.5-5.1); Sodium 137 mmol/L (135-145); Total Protein 6.9 g/dl (6.3-8.2); eGFR > 60.00
--- NOTE | 2023-04-26 08:30 | PTCARENOTE ---
Dr. Kelsey notified this AM, night baker reported pt. removed IV x 2. Non-violent soft limb restraints removed at 0400 per night baker. Pt. platelets 19 this AM. Order placed to restart soft limb restraints at this time. IV placed by TAMIKO Hagen with
IV team. Pt. pleasant but confused, resting in bed. Will continue to monitor and report on pt.
[2023-04-26] MEDS: DUONEB INH ×2 (08:32→19:21)
--- NOTE | 2023-04-26 11:35 | W.PN.ONC ---
Today's Communication / Plan
-
Suboptimal response to platelet transfusion 19 K
Difficult to ascertain the impact of a single dose of steroids
Light of infection proceed with gammaglobulin rather than steroid corticosteroids possible ITP
HIT probability 14%
Transfuse as needed to maintain PLT >10 in a controlled environment
Bleeding precautions
Follow CBC w/ diff daily
Discontinue Keflex
Hold Lovenox
Avoid heparin
Review peripheral blood smear
Platelet antibody, APL and HIT pending
Impression
Impression
Acute thrombocytopenia
Bilateral PE started on Lovenox at [facility] (03/15/2023)
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
Heparin exposure during admission (02/2023)
Chronic lymphedema
Hx biliary cirrhosis
Advanced dementia
Morbid obesity
Plan
Plan
Gammaglobulin x 3 days
Monitor CBC
No additional steroids now
Subjective/Objective
Subjective/Objective
Patient reports no bleeding. Significantly demented and disoriented.
Vital Signs:
Vital Signs
Temp Pulse Resp BP Pulse Ox
97.8 F 76 18 128/77 94
04/26/23 07:42 04/26/23 08:06 04/26/23 07:42 04/26/23 08:06 04/26/23 08:10
Physical exam unchanged
Lab Results:
Laboratory Data
WBC 9.3 10^3/uL (4.8-10.8) 04/26/23 06:20
Hgb 13.3 g/dL (12.0-16.0) 04/26/23 06:20
Plt Count 19 10^3/uL (130-400) L* D 04/26/23 06:20
PT 15.1 Sec (11.4-14.6) H 04/25/23 10:15
INR 1.20 04/25/23 10:15
eGFR > 60.00 04/26/23 06:20
--- NOTE | 2023-04-26 12:59 | W.PN.HOSP.TC ---
Today's Communication/Plan
-
steroids
monitor platelets
heme recs
Assessment / Plan
Assessment / Plan
Physical Exam
General: Well Developed, Well Nourished and No Apparent Distress
HEENT: NormoCephalic, Moist mucous membranes and Atraumatic
Respiratory: Clear
Cardiac: S1/S2 and Regular Rhythm; No Murmur or Rub
GI: Soft, Non Tender, Non Distended and Normal Bowel Sounds; No Organomegaly
Rectal: Deferred by Provider
Musculoskeletal: No Clubbing, No Cyanosis and No Edema
Skin: No Rash
Neuro: Nonfocal/grossly intact
PLAN:
# Severe thrombocytopenia possibly ITP unclear etiology v infection/inflammation v drug induced
-Possibly secondary to Keflex although could have many culprits
� Was supposed to be on Lovenox for PE in February 2023, platelets were 274,000 at that time
� No evidence of microangiopathic RBC changes on smear
-No evidence of bleeding apart from mild bruising lower extremities and abdomen
-1 unit platelet transfusion 2/2
-Start decadron as per hematology, moderate dose steroids thereafter
-heme on board
-F/u cbc
# Currently on Keflex
-Stop abx
-legs b/l have erythema/purpura
- i do not believe this is celluitis; more likely PVD in patient with chronic lymphedema and poor wound care
-Pulses palpable and LE not cold
-cont to monitor off abx
#Hypokalemia
-monitor and replete
#Hyponatremia
-mild
-ctm
Primary biliary cirrhosis
Ulcerative colitis
-Continue mesalamine
History of pulmonary embolism
Chronic lymphedema
-Continue topical wound care
-Continue Lasix
GERD
Essential hypertension
-Continue diltiazem, losartan, metoprolol
Diverticulosis
Obesity
Dementia
Psychiatric
-Continue Abilify, olanzapine
Full code
DVT prophylaxis�none
Regular diet
Anticipated Discharge: > 48 hours
Subjective/Interval History
-
Date of Service: April 26, 2023
no acute events
Objective Data
-
Labs:
Laboratory Results
04/26/23
06:20
WBC 9.3
Hgb 13.3
Hct 41.9
Plt Count 19 L* D
Sodium 137
Potassium 3.6
Chloride 97 L
Carbon Dioxide 34 H
BUN 16
Creatinine 0.5 L
Glucose 142 H
Calcium 9.9
Total Bilirubin 1.0
AST 25
ALT 43 H
Alkaline Phosphatase 90
Vital Signs:
Vital Signs
Temp Pulse Resp BP Pulse Ox
97.8 F 76 18 128/77 94
04/26/23 07:42 04/26/23 08:06 04/26/23 07:42 04/26/23 08:06 04/26/23 08:10
I&O
04/25/23 04/26/23 04/27/23
06:59 06:59 06:59
Intake Total 251 / 251 910 / 910
Output Total 300 / 300 1550 / 1550
Balance -49 / -49 -640 / -640
Review of Systems
-
History Source: Patient
All other systems: Not reviewed unless documented
Data Reviewed
-
CT Scan: Image personally visualized and interpreted and Report Reviewed by me
Labs: Labs Reviewed by me
[2023-04-26] MEDS: GAMMAGARD 300 IV (13:35)
[2023-04-26 17:47] LABS: Platelet Antibody, Direct IgG Negative (Negative); Platelet Antibody, Direct IgM Strong Pos (Negative)
[2023-04-26] MEDS: DUONEB 3 ML INH (19:28)
[2023-04-26] MEDS: STERILE WATER FOR INJECTION 2.10000000000000009 ML IM (21:34)
[2023-04-26] MEDS: MELATONIN PO (21:59)
[2023-04-26 22:22] LABS: Haptoglobin 208 mg/dL (30-200)
--- NOTE | 2023-04-26 22:30 | PTCARENOTE ---
Patient very agitated and uncooperative. She would not take her medication. She is very confused, she believes she is in her house. She is screaming for Silvio, she is also yelling 'help me' very loudly.At present she will not let me near her, or she
tries to kick me. Bilateral wrist restraints intact, she did pull out her INT, she is also hitting and grabbing the staff when they come near her. [employer] aware of patient not take her oral zyprexa, she ordered 5mg IM which was given at 2130, presently
an hour later she continues to yell and scream.
--- NOTE | 2023-04-26 23:30 | PTCARENOTE ---
Presently patient is asleep and quite.
--- NOTE | 2023-04-27 02:43 | W.PN.UPDATE ---
Update Note
Progress Note Update
time for po zyprexa changed to 1800. Last couple night pt with and by time zyprexa is due she is too agitated and combative and refuses to take. Will try earlier dosing of po zyprexa in hopes pt will be more cooperative.
[2023-04-27] MEDS: ZYPREXA 5 MG IM ×2 (03:56→22:42)
[2023-04-27 06:00] VITALS: BMI 42.4
[2023-04-27 07:31] VITALS: BP 154/77
[2023-04-27] MEDS: DUONEB 3 ML INH ×2 (07:35→20:39)
[2023-04-27 08:30] LABS: Hematocrit 40.3 % (37.0-47.0); Mean Corp Hgb Conc. 32.3 g/dL (33.0-37.0); Mean Corpuscular Hgb 26.7 pg (27.0-31.0); Mean Corpuscular Volume 82.9 fL (81.0-99.0); Platelet Count 38 10^3/uL (130-400); Red Blood Cell Count 4.86 10^6/uL (4.20-5.40); Red Cell Dist. Width 18.5 % (11.5-14.5); White Blood Cell Count 11.9 10^3/uL (4.8-10.8)
[2023-04-27] MEDS: CARDIZEM CD PO (09:28)
[2023-04-27] MEDS: ABILIFY PO (09:28)
[2023-04-27] MEDS: COZAAR PO (09:29)
[2023-04-27] MEDS: LASIX PO (09:29)
[2023-04-27] MEDS: TOPROL XL PO (09:29)
[2023-04-27] MEDS: DETROL LA PO (09:29)
--- NOTE | 2023-04-27 10:22 | W.PN.ONC ---
Today's Communication / Plan
-
Continue with the second treatment of gammaglobulin 30 g dosing
Platelets responded 38 K
Hold additional steroids for now while recovering from cellulitis
Follow CBC
Impression
Impression
Acute thrombocytopenia
Bilateral PE started on Lovenox at [facility] (03/15/2023)
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
Heparin exposure during admission (02/2023)
Chronic lymphedema
Hx biliary cirrhosis
Advanced dementia
Morbid obesity
Plan
Plan
Gammaglobulin x 3 days
Monitor CBC
No additional steroids now
Subjective/Objective
Subjective/Objective
Continued confusion.
Vital Signs:
Vital Signs
Temp Pulse Resp BP Pulse Ox
97.3 F 89 16 154/77 91
04/27/23 08:32 04/27/23 07:38 04/27/23 07:38 04/27/23 07:31 04/27/23 07:38
PE: Lower extremity swelling and erythema slightly improved otherwise unchanged
Lab Results:
Laboratory Data
WBC 11.9 10^3/uL (4.8-10.8) H 04/27/23 08:19
Hgb 13.0 g/dL (12.0-16.0) 04/27/23 08:19
Plt Count 38 10^3/uL (130-400) L D 04/27/23 08:19
PT 15.1 Sec (11.4-14.6) H 04/25/23 10:15
INR 1.20 04/25/23 10:15
eGFR Cancelled 04/27/23 08:19
Orders
Orders
Orders From Last 24 Hours
04/26/23 14:00
Immune Globulin 30 Grams/300Ml [Gammagard] 30 grams in 300 ml IV PER PROTOCOL
--- NOTE | 2023-04-27 11:06 | CM ---
per Attending; tentative DC tomorrow, 04/28; return to [facility]
[2023-04-27] MEDS: DETROL LA 4 MG PO (11:16)
[2023-04-27] MEDS: LASIX 40 MG PO (11:16)
[2023-04-27] MEDS: CARDIZEM CD 240 MG PO (11:16)
[2023-04-27] MEDS: TOPROL XL 50 MG PO (11:16)
[2023-04-27] MEDS: COZAAR 100 MG PO (11:16)
[2023-04-27] MEDS: ABILIFY 10 MG PO (11:17)
[2023-04-27] MEDS: ARISTOCORT/TRIAMCINOLONE 0.1% CREAM 1 APPLIC TOPICAL ×2 (11:24→20:52)
[2023-04-27] MEDS: DESENEX/MITRAZOL/ZEASORB 1 APPLIC TOPICAL ×2 (11:25→20:52)
--- NOTE | 2023-04-27 13:01 | W.PN.HOSP.TC ---
Today's Communication/Plan
-
IGG today
monitor cbc
Assessment / Plan
Assessment / Plan
Physical Exam
General: Well Developed, Well Nourished and No Apparent Distress
HEENT: NormoCephalic, Moist mucous membranes and Atraumatic
Respiratory: Clear
Cardiac: S1/S2 and Regular Rhythm; No Murmur or Rub
GI: Soft, Non Tender, Non Distended and Normal Bowel Sounds; No Organomegaly
Rectal: Deferred by Provider
Musculoskeletal: No Clubbing, No Cyanosis and No Edema
Skin: No Rash
Neuro: Nonfocal/grossly intact
PLAN:
# Severe thrombocytopenia possibly ITP unclear etiology v infection/inflammation v drug induced
-Possibly secondary to Keflex although could have many culprits
� Was supposed to be on Lovenox for PE in February 2023, platelets were 274,000 at that time
� No evidence of microangiopathic RBC changes on smear
-No evidence of bleeding apart from mild bruising lower extremities and abdomen
-1 unit platelet transfusion 2/2
-no steroids as per Heme
-Started IGG 2/3 - complete 3 day course: responding well
-heme on board
-F/u cbc
# Currently on Keflex
-Stop abx
-legs b/l have erythema/purpura - improving today
- i do not believe this is celluitis; more likely PVD in patient with chronic lymphedema and poor wound care
-Pulses palpable and LE not cold
-cont to monitor off abx
#Hypokalemia
-monitor and replete
#Hyponatremia
-mild
-ctm
Primary biliary cirrhosis
Ulcerative colitis
-Continue mesalamine
History of pulmonary embolism
Chronic lymphedema
-Continue topical wound care
-Continue Lasix
GERD
Essential hypertension
-Continue diltiazem, losartan, metoprolol
Diverticulosis
Obesity
Dementia
Psychiatric
-Continue Abilify, olanzapine
Full code
DVT prophylaxis�none
Regular diet
Anticipated Discharge: 24 - 48 hours
Subjective/Interval History
-
Date of Service: April 27, 2023
legs appear to have lesser erythema today
Objective Data
-
Labs:
Laboratory Results
04/27/23 04/27/23
08:19 08:40
WBC 11.9 H
Hgb 13.0
Hct 40.3
Plt Count 38 L D
Sodium Cancelled Pending
Potassium Cancelled Pending
Chloride Cancelled Pending
Carbon Dioxide Cancelled Pending
BUN Cancelled Pending
Creatinine Cancelled Pending
Glucose Cancelled Pending
Calcium Cancelled Pending
Total Bilirubin Cancelled Pending
AST Cancelled Pending
ALT Cancelled Pending
Alkaline Phosphatase Cancelled Pending
Vital Signs:
Vital Signs
Temp Pulse Resp BP Pulse Ox
97.3 F 89 16 154/77 91
04/27/23 08:32 04/27/23 07:38 04/27/23 07:38 04/27/23 07:31 04/27/23 07:38
I&O
04/26/23 04/27/23 04/28/23
06:59 06:59 06:59
Intake Total 910 / 910 840 / 840
Output Total 1550 / 1550 600 / 600
Balance -640 / -640 240 / 240
Review of Systems
-
History Source: Patient
All other systems: Not reviewed unless documented
Data Reviewed
-
CT Scan: Image personally visualized and interpreted and Report Reviewed by me
Labs: Labs Reviewed by me
[2023-04-27] MEDS: GAMMAGARD 300 IV (13:22)
[2023-04-27 13:34] VITALS: BP 148/70
[2023-04-27 14:07] VITALS: BP 164/69
[2023-04-27 15:18] LABS: ALT (SGPT) 38 U/L (0-35); AST (SGOT) 23 U/L (14-36); Albumin 2.9 g/dl (3.5-5.0); Alkaline Phosphatase 92 U/L (38-126); Blood Urea Nitrogen 23 mg/dl (7-17); Calcium 9.7 mg/dl (8.4-10.2); Carbon Dioxide 35 mmol/L (22-30); Chloride 100 mmol/L (98-107); Estimated Creatinine Clearance 68 ml/min; Glucose 101 mg/dl (70-99); Potassium 4.1 mmol/L (3.5-5.1); Sodium 134 mmol/L (135-145); Total Bilirubin 0.8 mg/dl (0.2-1.3); Total Protein 7.6 g/dl (6.3-8.2); eGFR > 60.00
--- NOTE | 2023-04-27 16:34 | PTCARENOTE ---
IGG finished with no complications. Bilateral soft limb restraints in place due to patient pulling out IV line multiple times. Patient is currently calm and cooperative. present at bedside.
[2023-04-27 17:09] VITALS: BP 151/71
[2023-04-27 17:12] LABS: Platelet Antibodies Indirect None Detected (None Detected)
[2023-04-27] MEDS: ZYPREXA 5 MG PO (17:39)
[2023-04-27] MEDS: MELATONIN PO (21:19)
[2023-04-27] MEDS: STERILE WATER FOR INJECTION 2.10000000000000009 ML IM (22:42)
[2023-04-27 23:40] VITALS: BP 137/59
[2023-04-28 07:00] VITALS: BP 126/78
[2023-04-28] MEDS: DUONEB 3 ML INH ×2 (07:34→19:25)
[2023-04-28] MEDS: LASIX 40 MG PO (07:54)
[2023-04-28] MEDS: ABILIFY 10 MG PO (07:54)
[2023-04-28] MEDS: DETROL LA 4 MG PO (07:54)
[2023-04-28] MEDS: TOPROL XL 50 MG PO (07:54)
[2023-04-28] MEDS: COZAAR 100 MG PO (07:55)
[2023-04-28] MEDS: CARDIZEM CD 240 MG PO (07:55)
[2023-04-28] MEDS: ARISTOCORT/TRIAMCINOLONE 0.1% CREAM 1 APPLIC TOPICAL ×2 (07:56→20:25)
[2023-04-28] MEDS: DESENEX/MITRAZOL/ZEASORB 1 APPLIC TOPICAL ×2 (07:56→20:17)
--- NOTE | 2023-04-28 09:30 | PTCARENOTE ---
pt not yelling. resting comfortably in bed. pt confused but pleasant. restraints discontinued
--- NOTE | 2023-04-28 10:22 | W.PN.HOSP.TC ---
Addendum entered and electronically signed by Myah Shaw MD 04/28/23 15:25:
# stage 3 vs unstageable lower sacral/coccyx/buttocks pressure injuries with yellow fibrin slough and some pink tissue.�
Original Note:
Today's Communication/Plan
-
see A/P
Assessment / Plan
Assessment / Plan
A/P:
# Severe thrombocytopenia possibly ITP, unclear etiology v infection/inflammation v drug induced
Possibly secondary to Keflex although could have many culprits
Was supposed to be on Lovenox for PE in February 2023, platelets were 274,000 at that time
No evidence of microangiopathic RBC changes on smear
No evidence of bleeding apart from mild bruising lower extremities and abdomen
s/p 1 unit platelet transfusion 2/2
no steroid as per Heme
Started gammaglobulin 2/3 - complete 3 day course: responding well
heme on board
F/u cbc
# Currently on Keflex for ?cellulitis
Stopped Abx
BL legs have erythema/purpura- improved
Do not believe this is cellulitis; more likely PVD in patient with chronic lymphedema and poor wound care
Pulses palpable and LE not cold
cont to monitor off abx
# Hypokalemia
repleted
# Mild Hyponatremia
# Primary biliary cirrhosis
# Ulcerative colitis
Continue mesalamine
# History of pulmonary embolism
Not on OAC due to severe thrombocytopenia
# Chronic lymphedema
Continue topical wound care
Continue Lasix
# GERD
# Essential hypertension
Continue diltiazem, losartan, metoprolol
# Diverticulosis
# Obesity
# Dementia
# Psychiatric
Continue Abilify, olanzapine
Full code
DVT prophylaxis
Regular diet
DW RN
Anticipated Discharge: 24 - 48 hours
Subjective/Interval History
-
Date of Service: April 28, 2023
Objective Data
-
Vital Signs:
Vital Signs
Temp Pulse Resp BP Pulse Ox
36.6 C 83 18 126/78 96
04/28/23 07:00 04/28/23 07:55 04/28/23 07:38 04/28/23 07:55 04/28/23 07:38
I&O
04/27/23 04/28/23 04/29/23
06:59 06:59 06:59
Intake Total 840 / 840 1050 / 1050
Output Total 600 / 600
Balance 240 / 240 1050 / 1050
Review of Systems
-
Unable to obtain full review of systems at this time due to: Dementia
Physical Exam
-
General: Well Developed, Well Nourished and Comfortable
HEENT: Normocephalic, Atraumatic, Nose Appears Normal, Ears Appear Normal and Oxygen (2L NC)
Respiratory: Clear to Auscultation and Non Labored Respirations; Negative Accessory Resp Muscle Use
Cardiac: Regular Rhythm and S1/S2
GI: Soft
Skin: Warm, Dry and Rash (BL LE chronic venous dermatosis)
Psych: Calm and Apparent Dementia
Data Reviewed
-
Labs: Labs Reviewed by me
--- NOTE | 2023-04-28 10:26 | W.PN.ONC ---
Today's Communication / Plan
-
2/5 Platelets 38
s/p 2units PLTs
IVIG today (3rd dose)
Transfuse as needed to maintain PLT >10
Monitor CBC w/ diff daily
No additional steroids at this time
Monitor response from IVIG. We will follow.
Impression
Impression
Acute thrombocytopenia
Bilateral PE started on Lovenox at [facility] (03/15/2023)
Heparin exposure during admission (02/2023)
Possible ITP; recent Keflex use
Bilateral LE cellulitis
Advanced dementia
Morbid obesity
Subjective/Objective
Subjective/Objective
Ongoing confusion, no evidence of bleeding. patient is sleeping between care. restraints in place.
Vital Signs:
Vital Signs
Temp Pulse Resp BP Pulse Ox
97.9 F 83 18 126/78 96
04/28/23 07:00 04/28/23 07:55 04/28/23 07:38 04/28/23 07:55 04/28/23 07:38
Lab Results:
Laboratory Data
WBC 11.9 10^3/uL (4.8-10.8) H 04/27/23 08:19
Hgb 13.0 g/dL (12.0-16.0) 04/27/23 08:19
Plt Count 38 10^3/uL (130-400) L D 04/27/23 08:19
PT 15.1 Sec (11.4-14.6) H 04/25/23 10:15
INR 1.20 04/25/23 10:15
eGFR > 60.00 04/27/23 14:36
[2023-04-28 11:24] LABS: Hematocrit 41.8 % (37.0-47.0); Hemoglobin 13.4 g/dL (12.0-16.0); Mean Corp Hgb Conc. 32.1 g/dL (33.0-37.0); Mean Corpuscular Volume 84.3 fL (81.0-99.0); Platelet Count 31 10^3/uL (130-400); Red Blood Cell Count 4.96 10^6/uL (4.20-5.40); Red Cell Dist. Width 18.8 % (11.5-14.5)
--- NOTE | 2023-04-28 13:31 | CM ---
Reviewed chart, patient not medically stable for discharge. Patient will return to [facility] when she is medically stable.
Plan: Case management will continue to follow and assist with discharge planning. Back to [facility] when cleared for discharge.
[2023-04-28 15:00] VITALS: BP 114/65
--- NOTE | 2023-04-28 15:03 | PN.CDI ---
CDI
- -
CDI:
Physician Documentation Request
Admit Date: 04/24/23 23:13
Dear Doctor Valeria,
Please review the following and provide your response in the progress notes.
Clinical Indicators:
04/25/23 10:20 (created 04/25/23 11:39) - Wound Note
Wound Location and type/assessment:
#Patient admitted with: stage 3 vs unstageable lower sacral/coccyx/buttocks pressure injuries with yellow fibrin slough and some pink tissue.
#R lateral posterior calf with scattered pink dermal ulcers r/t edema.
#R lateral heel brown dry ulcer suspect dried blood blister (stage 2 vs unstageable).
#+Purpura R medial lower thigh, RLE.
#L lateral calf with several small scabbed ulcers r/t lymphedema.
#+Hemosiderosis Le's. +3 LE edema.
#L heel blanchable red.
Physician documentation of the type and location of wounds is required for compliant documentation. Based on the above clinical findings and your assessment, please provide the following in your progress note:
Yes, Stage 3 vs. unstageable sacral/coccyx/buttocks pressure injury and right lateral heel stage 2 vs. unstageable, POA
No, Stage 3 vs. unstageable sacral/coccyx/buttocks pressure injury and right lateral heel stage 2 vs. unstageable
Other
1. Location of the ulcer/wound, including laterality.
2. Type (etiology) of ulcer/wound:
- Diabetic ulcer
- Arterial (ischemic) ulcer
- Traumatic wound
- Venous stasis ulcer
- Pressure (decubitus) ulcer
3. For a non-pressure ulcer, please indicate the depth/severity:
- Limited to the breakdown of skin
- With fat layer exposed
- With necrosis of muscle
- With necrosis of bone
4. If a pressure ulcer, please also include the stage* of the ulcer:
- Stage 1 - Skin intact, non-blanchable redness
- Stage 2 - Partial thickness loss of dermis, includes intact or open blister
- Stage 3 - Full thickness tissue not including bone, tendon or muscle
- Stage 4 - Full thickness tissue loss, including exposed bone, tendon or muscle
- Unstageable - Full thickness loss in which the base of the ulcer is covered by slough (yellow, shetty, cochran, green or brown) and/or eschar (shetty, brown or black) in the wound bed.
Use of terms such as suspected, likely, concern for, or probable (associated with a specific diagnosis that is being evaluated, monitored, or treated as if it exists) are acceptable and can be coded in the inpatient setting, when documented at the
time of discharge.
Thank you,
Jazmyne Lyons RN BSN CCDS
CDI Specialist
please contact via tiger text
Please use your independent medical judgment in providing your response.
*Source: National Pressure Ulcer Advisory Panel (NPUAP)
[2023-04-28] MEDS: ZYPREXA 5 MG PO (17:03)
[2023-04-28] MEDS: MELATONIN 5 MG PO (21:19)
[2023-04-28 23:00] VITALS: BP 102/58
[2023-04-29 07:21] LABS: Hematocrit 44.1 % (37.0-47.0); Hemoglobin 13.9 g/dL (12.0-16.0); Mean Corp Hgb Conc. 31.5 g/dL (33.0-37.0); Mean Corpuscular Hgb 26.4 pg (27.0-31.0); Mean Corpuscular Volume 83.8 fL (81.0-99.0); Red Blood Cell Count 5.26 10^6/uL (4.20-5.40); White Blood Cell Count 9.5 10^3/uL (4.8-10.8)
[2023-04-29 07:34] LABS: Platelet Count 27 10^3/uL (130-400)
[2023-04-29 07:49] LABS: Blood Urea Nitrogen 37 mg/dl (7-17); Glucose 121 mg/dl (70-99)
[2023-04-29 07:50] LABS: Calcium 9.6 mg/dl (8.4-10.2); Carbon Dioxide 33 mmol/L (22-30); Chloride 99 mmol/L (98-107); Estimated Creatinine Clearance 58 ml/min; Potassium 4.3 mmol/L (3.5-5.1); Sodium 136 mmol/L (135-145); eGFR > 60.00
[2023-04-29] MEDS: DUONEB 3 ML INH ×2 (07:51→19:15)
[2023-04-29 08:14] VITALS: BP 116/65
--- NOTE | 2023-04-29 08:35 | W.PN.ONC ---
Addendum entered and electronically signed by Nancy Tomas MD 04/29/23 10:11:
Patient seen and examined. Agree w/ A&P as below
HIT Brie negative
No platelet response to steroids or IVIG, unlikely ITP
Platelet count was normal (>200) during hospital stay at [facility] in February
Suspect drug-induced thrombocytopenia from Keflex
Would consider KEFLEX an ALLERGY - I added to her chart
Platelet count should improve over 1-2 weeks from stopping drug
Okay for d/c back to [place] if they are able to do the following
1) monitor CBC twice weekly until platelet count > 100
2) resume Lovenox once platelet count > 75
Should have at least 3 months anticoagulation for PEs
Original Note:
Today's Communication / Plan
-
2/6 Platelets 27
s/p 2units PLTs, IVIG x3
Transfuse as needed to maintain PLT >10
Monitor temps as hypothermia can contribute to thrombocytopenia
Bleeding precautions
CBC w/ diff daily
No additional steroids at this time
Supportive care/transfusion support
Holding Lovenox until PLT >50
We will follow.
Impression
Impression
Acute thrombocytopenia
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
Bilateral PE started on Lovenox at [facility] (03/15/2023)
Heparin exposure during admission (02/2023)
Bilateral LE cellulitis
Advanced dementia
Morbid obesity
Hypothermia
Subjective/Objective
Subjective/Objective
Patient is in bed. Confused. denies acute pain.
Vital Signs:
Vital Signs
Temp Pulse Resp BP Pulse Ox
96.9 F L 89 18 116/65 93
04/29/23 08:14 04/29/23 08:14 04/29/23 08:14 04/29/23 08:14 04/29/23 08:14
physical exam:
aaox1, restless/confused, obese
b/l legs appear slightly improved with improvement of erythema
purewick in place, renae urine output
Lab Results:
Laboratory Data
WBC 9.5 10^3/uL (4.8-10.8) 04/29/23 06:35
Hgb 13.9 g/dL (12.0-16.0) 04/29/23 06:35
Plt Count 27 10^3/uL (130-400) L* 04/29/23 06:35
PT 15.1 Sec (11.4-14.6) H 04/25/23 10:15
INR 1.20 04/25/23 10:15
eGFR > 60.00 04/29/23 06:35
[2023-04-29] MEDS: DETROL LA 4 MG PO (09:16)
[2023-04-29] MEDS: ARISTOCORT/TRIAMCINOLONE 0.1% CREAM 1 APPLIC TOPICAL ×2 (09:16→20:14)
[2023-04-29] MEDS: LASIX 40 MG PO (09:16)
[2023-04-29] MEDS: ABILIFY 10 MG PO (09:16)
[2023-04-29] MEDS: TOPROL XL 50 MG PO (09:17)
[2023-04-29] MEDS: COZAAR 100 MG PO (09:17)
[2023-04-29] MEDS: CARDIZEM CD 240 MG PO (09:17)
[2023-04-29] MEDS: DESENEX/MITRAZOL/ZEASORB 1 APPLIC TOPICAL ×2 (09:18→20:16)
--- NOTE | 2023-04-29 09:18 | W.PN.HOSP.TC ---
Addendum entered and electronically signed by Myah Shaw MD 04/29/23 14:12:
# Multifactorial toxic metabolic encephalopathy, due to meds, dementia, metabolic derangements
Addendum entered and electronically signed by Myah Shaw MD 04/29/23 13:17:
total DC time 35 min
Updated on the phone
Original Note:
Today's Communication/Plan
-
dispo planning
Assessment / Plan
Assessment / Plan
A/P:
# Severe thrombocytopenia possibly ITP, unclear etiology, ?drug induced from recent steroid per heme
Was supposed to be on Lovenox for PE in February 2023, platelets were 274,000 at that time
No evidence of microangiopathic RBC changes on smear
No evidence of bleeding apart from mild bruising lower extremities and abdomen
s/p 2 units platelet transfusion 2/2
no steroid as per Heme
s/p gammaglobulin x3 days, responding well
heme on board
CBC twice weekly until platelet > 50 000
Lovenox to be restarted only when platelet > 50 000
# Currently on Keflex for ?cellulitis
Stopped Abx
BL legs have erythema/purpura- improved
Do not believe this is cellulitis; more likely PVD in patient with chronic lymphedema and poor wound care
Pulses palpable and LE not cold
cont to monitor off abx
# Hypokalemia
repleted
# Mild Hyponatremia
# Primary biliary cirrhosis
# Ulcerative colitis
Continue mesalamine
# History of pulmonary embolism
Not on OAC due to severe thrombocytopenia
# Chronic lymphedema
Continue topical wound care
Continue Lasix
# GERD
# Essential hypertension
Continue diltiazem, losartan, metoprolol
# Diverticulosis
# Obesity
# Dementia
# Psychiatric
Continue Abilify, olanzapine
Full code
DVT prophylaxis
Regular diet
DW Heme Dr Tomas
Anticipated Discharge: Within 24 hours
Subjective/Interval History
-
Date of Service: April 29, 2023
Objective Data
-
Labs:
Laboratory Results
04/29/23
06:35
WBC 9.5
Hgb 13.9
Hct 44.1
Plt Count 27 L*
Sodium 136
Potassium 4.3
Chloride 99
Carbon Dioxide 33 H
BUN 37 H
Creatinine 0.8
Glucose 121 H
Calcium 9.6
Vital Signs:
Vital Signs
Temp Pulse Resp BP Pulse Ox
36.1 C L 89 18 116/65 93
04/29/23 08:14 04/29/23 08:14 04/29/23 08:14 04/29/23 08:14 04/29/23 08:14
I&O
04/28/23 04/29/23 04/30/23
06:59 06:59 06:59
Intake Total 1050 / 1050 1080 / 1080
Output Total 300 / 300
Balance 1050 / 1050 780 / 780
Review of Systems
-
Unable to obtain full review of systems at this time due to: Dementia
Physical Exam
-
General: Well Developed, Well Nourished and Comfortable
HEENT: Normocephalic, Atraumatic, Nose Appears Normal, Ears Appear Normal and Oxygen (2L NC)
Respiratory: Clear to Auscultation and Non Labored Respirations; Negative Accessory Resp Muscle Use
Cardiac: Regular Rhythm and S1/S2
GI: Soft
Skin: Warm, Dry and Rash (BL LE chronic venous dermatosis)
Psych: Calm and Apparent Dementia
Data Reviewed
-
Labs: Labs Reviewed by me
--- NOTE | 2023-04-29 10:41 | CM ---
Addendum entered by AXEL Philip 04/29/23 11:42:
Placed a call to patient's spouse to update about discharge. He had no concerns or questions and was agreeable. IMM placed on chart.
Original Note:
Received call from attending that patient is medically stable for discharge. Placed a call to [facility] and spoke with Shiv in admissions who confirmed her bed. #For report [phone]. Will complete medical necessity and
transfer sheet and provide to community relations representative. Will provide IMM to patient.
Plan: Case management will continue to follow and assist with discharge planning/transfer back to [facility] today.
--- NOTE | 2023-04-29 12:40 | PN.CDI ---
CDI
- -
CDI:
Physician Documentation Request
Admit Date: 04/24/23 23:13
Dear Doctor Valeria,
Please review the following and provide your response in the progress notes.
Clinical Indicators:
PN, 04/27
#Last couple night pt with and by time zyprexa is due she is too agitated and combative and refuses to take.
PN, 04/29
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
#...?drug induced from recent steroid per heme
# Dementia
# Psychiatric
#Continue Abilify, olanzapine
04/26/23 08:30 (created 04/26/23 09:22) - Patient Care Note
#...pt. removed IV x 2.
#...Non-violent soft limb restraints removed at 0400 per retail shift leader.
#...Order placed to restart soft limb restraints at this time.
#...Pt. pleasant but confused, resting in bed.
04/26/23 22:30 (created 04/27/23 00:57) - Patient Care Note
#Patient very agitated and uncooperative.
#...She would not take her medication.
#...She is very confused, she believes she is in her house.
#...She is screaming for Silvio, she is also yelling 'help me' very loudly.
#...At present she will not let me near her, or she tries to kick me.
#Bilateral wrist restraints intact, she did pull out her INT,
#...she is also hitting and grabbing the staff when they come near her.
#ZINC PLATE CUTTER aware of patient not take her oral zyprexa, she ordered 5mg IM which was given at 2130, #presently an hour later she continues to yell and scream.
04/27/23 16:34 - Patient Care Note
#IGG finished with no complications.
#...Bilateral soft limb restraints in place due to patient pulling out IV line multiple times.
04/28/23 09:30 (created 04/28/23 10:14) - Patient Care Note
#pt not yelling. resting comfortably in bed.
#...pt confused but pleasant. restraints discontinued
Based on the above, please clarify in the Progress Notes and Discharge Summary which, if any of the following, is the most likely etiology of the confusion/altered mental status.
Multifactorial - toxic metabolic encephalopathy, due to meds, dementia, metabolic derangements, other
Dementia with behavioral disturbance
Delirium superimposed on dementia
Other
Use of terms such as suspected, likely, concern for, or probable (associated with a specific diagnosis that is being evaluated, monitored, or treated as if it exists) are acceptable and can be coded in the inpatient setting, when documented at the
time of discharge.
Thank you,
Jazmyne Lyons RN BSN CCDS
CDI Specialist
please contact via tiger text
Please use your independent medical judgment in providing your response.
--- NOTE | 2023-04-29 13:08 | W.DCSUMMARY ---
Discharge Summary
Discharge Data
Date of Admission: 04/24/23
Date of Discharge: 04/30/23
-
Pending Results: No
Hospital Course
Principal Diagnosis:
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
Chronic Diagnoses:�
Primary biliary cirrhosis
Ulcerative colitis
History of pulmonary embolism, not on anticoagulation due to severe thrombocytopenia
Chronic lymphedema
GERD
Essential hypertension
Diverticulosis
Obesity
Severe Dementia
Consultations:�
Hematology
Procedures:�
None
Clinical course:�
This is a 82-year-old female, with past medical history as stated above, who presented with severe thrombocytopenia.
Problem 1:
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
She was treated with gammaglobulin x3 days and received platelet transfusion x 2 units.
Her platelets improved from 12,000 to 31,000 on the day of discharge.
She can continue to monitor her platelet count closely with CBC twice weekly outpatient.
She should not receive any anticoagulation (such as Lovenox) until her platelet count is more than 75,000.
Of note, there is no evidence of microangiopathic RBC changes on smear and no evidence of bleeding apart from mild bruising lower extremities and abdomen.
Problem 2:
On Keflex for ?cellulitis.
Her bilateral lower extremities erythema is felt more consistent with peripheral vascular disease, and less likely cellulitis.
Her prior to admission Keflex was discontinued this admission.
As for the rest of her medical problems, they were stable during her hospital stay.
Discharge Plan
-
Patient Disposition: Prison/SNF
Discharge Diagnosis/Procedures: Severe thrombocytopenia possibly ITP (unclear etiology, ?drug induced from Keflex) status post gammaglobulin x3 days during hospital stay; severe dementia
Condition: Fair
Diet: As tolerated
Activity: As tolerated
Driving Restrictions: No driving
Blood Work: CBC twice every week until your platelet count is above 50 000
Wound Care: Wound Care Instructions
Lower sacral/coccyx/buttocks ulcers-clean with Vashe wound cleanser, miconazole powder prn yeasty red periwound skin followed by no sting barrier wipe, honey gel or Triad paste, cover with silicone foam dressing or ABD pad secured with minimal
silicone tape (add alginate prior to cover dressing prn large amount of drainage), change daily and prn loosened dressing.
R posterior thigh wound-clean with saline, silicone border foam, change daily and prn drainage.
R toe blisters-swab with Betadine daily, cover with adaptic and gauze daily prn drainage.
R lateral heel dry ulcer-swab with no sting barrier wipe, foam dressing, change q 3 days and prn loosened dressing.
Le's-clean with saline, Triamcinolone cream daily x 10 days. If drainage or weeping occurs, cover with adaptic, ABD pad secured with stockinet (i.e. Spandage). Keep clean disposable underpad under le's.
Air mattress
Elevate heels off bed with pillows with air chair cushion on top.
Pressure redistributing chair cushion (i.e. Air chair cushion)
Follow up with wound reservoir caretaker or at wound care center call for an appointment.
Activity Restrictions/Additional Instructions:
Check CBC twice weekly until platelet > 100 000.
resume Lovenox (for PE) once platelet count > 75 000.
Should have at least 3 months anticoagulation for PE
Referrals:
Arsenio Hancock MD [Family Provider] - in less than 1 week
Prescriptions:
Continued
metoprolol succinate 50 MG tablet extended release 24 hr
50 mg PO DAILY
mesalamine [Lialda] 1.2 GM tablet,delayed release (DR/EC)
2.4 g PO DAILY
furosemide 40 mg Tablet
40 mg PO DAILY
acetaminophen 325 mg Tablet
650 mg PO Q6H PRN (Reason: mild pain/temp>100)
ipratropium-albuterol 0.5 mg-3 mg(2.5 mg base)/3 mL Solution For Nebulization
3 ml INHALATION R BID
diltiazem HCl [Cardizem CD] 240 mg Capsule,Extended Release 24hr
240 mg PO DAILY
olanzapine [Zyprexa] 5 mg Tablet
5 mg PO HS
Triad Wound Dressing Paste
1 applic TOPICAL TID
Rx Instructions:
apply to inner buttocks
triamcinolone acetonide 0.1 % cream
1 applic TOPICAL BID
Rx Instructions:
apply to b/l LE for skin irritation
magnesium hydroxide [Milk of Magnesia] 400 mg/5 mL Suspension
30 ml PO HS PRN (Reason: if no bm x 3 days)
bisacodyl [Dulcolax (bisacodyl)] 10 mg Suppository
10 mg [place] DAILY PRN (Reason: if no results for MOM)
nystatin 100,000 unit/gram Powder
1 applic TOPICAL DAILY
Rx Instructions:
apply to abdominal folds
losartan 100 mg Tablet
100 mg PO DAILY
aripiprazole [Abilify] 10 mg Tablet
10 mg PO DAILY
melatonin 5 mg Tablet
5 mg PO HS
Myrbetriq 50 mg tablet extended release 24 hr
50 mg PO DAILY
Discontinued
cephalexin [Keflex] 500 mg Capsule
500 mg PO TID
Discharge Orders:
Discharge Patient (As Directed); Ordered 04/30/23
Ordered By: Myah Shaw
[2023-04-29 16:37] LABS: Glucose - Point of Care 138 mg/dl (70-99)
--- NOTE | 2023-04-29 16:58 | W.PN.UPDATE ---
Update Note
Progress Note Update
Called to bedside for rapid response. The patient was about to be discharged when, as per nursing, she became unresponsive. Accu-Chek was 138, ECG with normal sinus rhythm, blood pressure 133/59, heart rate 70. Currently the patient appears to be
sleeping. No acute distress, regular rate and rhythm, normal S1-S2. Clear to auscultation bilaterally. Patient winces and moans fairly loudly when her toe is pinched. At this point we will hold the patient's discharge and continue to monitor her
overnight. No other acute interventions indicated at this moment.
[2023-04-29 17:12] LABS: Lactic Acid 1.2 mmol/L (0.7-2.0)
[2023-04-29 17:13] LABS: ALT (SGPT) 33 U/L (0-35); AST (SGOT) 29 U/L (14-36); Albumin 2.8 g/dl (3.5-5.0); Alkaline Phosphatase 87 U/L (38-126); Blood Urea Nitrogen 38 mg/dl (7-17); Calcium 9.1 mg/dl (8.4-10.2); Carbon Dioxide 34 mmol/L (22-30); Chloride 100 mmol/L (98-107); Estimated Creatinine Clearance 58 ml/min; Glucose 127 mg/dl (70-99); Potassium 4.4 mmol/L (3.5-5.1); Sodium 133 mmol/L (135-145); Total Bilirubin 0.9 mg/dl (0.2-1.3); Total Protein 7.5 g/dl (6.3-8.2); eGFR > 60.00
[2023-04-29] MEDS: ZYPREXA 5 MG PO (17:24)
[2023-04-29] MEDS: ASACOL, DELZICOL DR 2400 MG PO (17:26)
--- NOTE | 2023-04-29 18:09 | PTCARENOTE ---
patient is in for discharge. ambulance arrived to transport the patient to [facility]. patient became very lethargic and would only respond to sternal rub, could not answer questions but would follw simple commands. VSS. Accu check 138. EKG
shows NSR. stat labs drawn and sent. patient with Hx dementia, confused at baseline, but was awake and making conversations with staff all day. MD at bedside. no new orders at this time. cont to monitor
[2023-04-29] MEDS: MELATONIN 5 MG PO (21:43)
[2023-04-29 23:00] VITALS: BP 117/58
[2023-04-30 07:00] VITALS: BP 125/58
[2023-04-30 07:47] LABS: Hematocrit 40.4 % (37.0-47.0); Hemoglobin 12.7 g/dL (12.0-16.0); Mean Corp Hgb Conc. 31.4 g/dL (33.0-37.0); Mean Corpuscular Hgb 26.3 pg (27.0-31.0); Mean Corpuscular Volume 83.8 fL (81.0-99.0); Platelet Count 31 10^3/uL (130-400); Red Blood Cell Count 4.82 10^6/uL (4.20-5.40); Red Cell Dist. Width 18.9 % (11.5-14.5)
[2023-04-30] MEDS: DUONEB 3 ML INH (07:59)
[2023-04-30 08:58] VITALS: BP 124/62; PULSE 83; O2SAT 93
[2023-04-30] MEDS: ARISTOCORT/TRIAMCINOLONE 0.1% CREAM 1 APPLIC TOPICAL (09:12)
[2023-04-30] MEDS: DETROL LA 4 MG PO (09:13)
[2023-04-30] MEDS: ASACOL, DELZICOL DR 2400 MG PO (09:13)
[2023-04-30] MEDS: ABILIFY 10 MG PO (09:14)
[2023-04-30] MEDS: TOPROL XL 50 MG PO (09:14)
[2023-04-30] MEDS: COZAAR 100 MG PO (09:16)
[2023-04-30] MEDS: LASIX 40 MG PO (09:16)
[2023-04-30] MEDS: CARDIZEM CD 240 MG PO (09:16)
[2023-04-30] MEDS: DESENEX/MITRAZOL/ZEASORB 1 APPLIC TOPICAL (09:23)
--- NOTE | 2023-04-30 10:36 | W.PN.HOSP.TC ---
Addendum entered and electronically signed by Myah Shaw MD 04/30/23 10:48:
updated on the phone
total DC time 35 min
Original Note:
Today's Communication/Plan
-
DC today
Assessment / Plan
Assessment / Plan
A/P:
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
Was supposed to be on Lovenox for PE in February 2023, platelets were 274,000 at that time
No evidence of microangiopathic RBC changes on smear
No evidence of bleeding apart from mild bruising lower extremities and abdomen
s/p 2 units platelet transfusion 2/2
no steroid as per Heme
s/p gammaglobulin x3 days, responded well
heme on board
CBC twice weekly until platelet > 50 000
Lovenox to be restarted only when platelet > 50 000
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
Stopped Abx
BL legs have erythema/purpura- improved
Do not believe this is cellulitis; more likely PVD in patient with chronic lymphedema and poor wound care
Pulses palpable and LE not cold
cont to monitor off abx
# Hypokalemia
repleted
# Mild Hyponatremia
# Primary biliary cirrhosis
# Ulcerative colitis
Continue mesalamine
# History of pulmonary embolism
Not on OAC due to severe thrombocytopenia
resume Lovenox once platelet count > 75, should have at least 3 months anticoagulation for PEs
# Chronic lymphedema
Continue topical wound care
Continue Lasix
# GERD
# Essential hypertension
Continue diltiazem, losartan, metoprolol
# Diverticulosis
# Obesity
# Severe dementia
# Psychiatric
Continue Abilify, olanzapine
Full code
DVT prophylaxis
Regular diet
DW RN
Anticipated Discharge: Today
Subjective/Interval History
-
Date of Service: April 30, 2023
Objective Data
-
Labs:
Laboratory Results
04/30/23
07:22
WBC 8.0
Hgb 12.7
Hct 40.4
Plt Count 31 L
Vital Signs:
Vital Signs
Temp Pulse Resp BP Pulse Ox
36.8 C 79 16 125/58 94
04/30/23 07:00 04/30/23 09:16 04/30/23 08:00 04/30/23 09:16 04/30/23 09:33
I&O
04/29/23 04/30/23 05/01/23
06:59 06:59 06:59
Intake Total 1080 / 1080 960 / 960
Output Total 300 / 300 350 / 350
Balance 780 / 780 610 / 610
Review of Systems
-
Unable to obtain full review of systems at this time due to: Dementia
Physical Exam
-
General: Well Developed, Well Nourished and Comfortable
HEENT: Normocephalic, Atraumatic, Nose Appears Normal, Ears Appear Normal and Oxygen (1L NC)
Respiratory: Clear to Auscultation and Non Labored Respirations; Negative Accessory Resp Muscle Use
Cardiac: Regular Rhythm and S1/S2
GI: Soft
Skin: Warm, Dry and Rash (BL LE chronic venous dermatosis)
Psych: Calm and Apparent Dementia
Data Reviewed
-
Labs: Labs Reviewed by me
--- NOTE | 2023-04-30 11:07 | CM ---
Received TT from attending, patient is medically stable for discharge today.
Reviewed chart, placed a call to Shiv in admissions at [facility] who confirmed that all the information from yesterday is correct and he confirmed that patient can return today. # for report and fax# in previous CM note-when call for
report-ask for station #3.
Confirmed [facility] has transfer sheet and medical necessity.
Plan: Case management will continue to follow and assist with discharge planning. Patient is medically cleared to go to [facility].
[2023-04-30] MEDS: TYLENOL 650 MG PO (11:20)
== END 2023-04-30 12:29 | DRG 813 ==
LOC: 3 WEST ACU 23:13
PROVIDERS: Emergency Medicine; Internal Medicine; Nurse Practitioner Family; Nurse Practitioner Gerontology; ADMITTING PHYSICIAN Hospitalist; ATTENDING PHYSICIAN Internal Medicine; CONSULT PHYSICIAN Internal Medicine Hematology & Oncology; EMERGENCY PHYSICIAN Student in an Organized Health Care Education/Training Program; FAMILY PHYSICIAN Internal Medicine
PROC: 30233R1 Transfusion of Nonautologous Platelets into Peripheral Vein, Percutaneous Approach (ICD-10-PCS; 2023-04-24)
DX: D69.59 Other secondary thrombocytopenia (principal); L89.153 Pressure ulcer of sacral region, stage 3; G92.8 Other toxic encephalopathy; K51.90 Ulcerative colitis, unspecified, without complications; Z68.41 Body mass index [BMI] 40.0-44.9, adult; F05 Delirium due to known physiological condition; F03.C11 Unspecified dementia, severe, with agitation; E87.1 Hypo-osmolality and hyponatremia; L03.116 Cellulitis of left lower limb; L03.115 Cellulitis of right lower limb; D80.3 Selective deficiency of immunoglobulin G [IgG] subclasses; T36.1X5A Adverse effect of cephalosporins and other beta-lactam antibiotics, initial encounter; Y92.9 Unspecified place or not applicable; R79.89 Other specified abnormal findings of blood chemistry; I73.9 Peripheral vascular disease, unspecified; I10 Essential (primary) hypertension; I89.0 Lymphedema, not elsewhere classified; R21 Rash and other nonspecific skin eruption; K74.3 Primary biliary cirrhosis; K21.9 Gastro-esophageal reflux disease without esophagitis; K57.90 Diverticulosis of intestine, part unspecified, without perforation or abscess without bleeding; E87.6 Hypokalemia; E66.01 Morbid (severe) obesity due to excess calories; K75.81 Nonalcoholic steatohepatitis (NASH); Z86.711 Personal history of pulmonary embolism; Z11.52 Encounter for screening for COVID-19; Z79.01 Long term (current) use of anticoagulants; Z91.148 Patient's other noncompliance with medication regimen for other reason; Z78.1 Physical restraint status; Z88.1 Allergy status to other antibiotic agents
CPT/HCPCS: 36430; 80048; 80053; 82962; 83010; 83605; 83615; 83735; 85025; 85027; 85045; 85379; 85384; 85610; 86022; 86023; 86850; 86900; 86901; 87070; 87502; 87811; 93005; 94640; 97162; 99285; J1569; J2358; P9073

== ENCOUNTER 2023-05-04 03:48 | Inpatient (IN) | payer MEDICARE, BC, SELFPAY ==
[2023-05-03 22:08] VITALS: BP 79/32
--- NOTE | 2023-05-03 22:08 | ED.GENMED ---
History of Present Illness
General
Chief Complaint: Change in Mental Status
Source: ambulance crew
Exam Limitations: clinical condition
Time Seen by Provider: 05/03/23 22:01
History of Present Illness
History of Present Illness:
See MDM
Past History
Past History
ED Past Medical History: HTN and Other (Cirrhosis)
ED Past Surgical History: None
Social History
Tobacco: Non-smoker
Alcohol: None
Drug: None
Personal:
Living: with family
Phy Exam
Physical Exam
Physical Exam:
See MDM
Course
Orders/Labs/Results
Orders:
Orders
05/03/23 22:01
EKG [Electrocardiogram (*1)] Urgent
Reason for Study: Chest Pain
EKG- Treatment ONCE
05/03/23 22:02
CR Chest Portable - 1 View Urgent
Comment:
Reason For Exam: Altered
Reason Study Needs to be Portable: Patient Unstable
05/03/23 22:05
Ammonia Urgent
Basic Metabolic Panel Urgent
Complete Blood Count/With Diff Urgent
Lactic Acid Q4H
Comment: CANCEL 2nd LACTIC ACID IF 1st LACTIC ACID IS LESS THAN 2
NT-proBNP Urgent
PTT Urgent
Prothrombin Time Urgent
Troponin I Urgent
0.9% Sodium Chloride 1000 ml [Nss] 1,000 ml IV BOLUS
05/03/23 22:24
Urinalysis Reflex To Culture Urgent
Date Specimen was Collected: 05/03/23
Time Specimen was Collected: 22:22
Urine Microscopic Reflex Cult Urgent
Urine Culture Urgent
KIP Source: U
Specimen Description:
Date Specimen was Collected: 05/03/23
Time Specimen was Collected: 22:22
05/04/23 00:00
CT Chest Pe Study Urgent
Reason For Exam: Hypoxic, SOB, altered
CT Head W/o Iv Contrast Urgent
Reason For Exam: altered
05/04/23 00:31
Aspirin 300 mg RECTAL NOW STA
05/04/23 00:57
COVID-19 Antigen Urgent
Source: Nasal Swab
Influenza A+B Rapid Molecular Urgent
KIP Source: Nasal Swab
Specimen Description:
05/04/23 01:23
CefTRIAXone [Rocephin] 1,000 mg IV NOW STA
Abnormal Lab Results
05/03/23 05/03/23
22:05 22:24
MCHC 32.6 L g/dL
(33.0-37.0)
RDW 18.8 H %
(11.5-14.5)
Plt Count 59 L D 10^3/uL
(130-400)
MPV 11.6 H fL
(7.4-10.4)
Absolute Monos (auto) 0.8 H 10^3/uL
(0.1-0.6)
PT 15.7 H Sec
(11.4-14.6)
Carbon Dioxide 31 H mmol/L
(22-30)
BUN 73 H mg/dl
(7-17)
Glucose 105 H mg/dl
(70-99)
Ammonia < 9 L umol/L
(9-30)
Troponin I 0.067 H* ng/ml
Leukocyte Esterase Rfl 2+ A
(Negative)
Urine WBC (Reflex) >100 A /HPF
(0-5)
Urine Bacteria (Reflex) Few A
(Negative)
05/03/23 22:05
05/03/23 22:05
Vital Signs
Initial and Last Documented VS:
Initial Vital Signs
Temp Pulse Resp BP
99.2 F 83 24 79/32
05/03/23 22:08 05/03/23 22:08 05/03/23 22:08 05/03/23 22:08
Last Documented Vital Signs
Temp Pulse Resp BP Pulse Ox
99.2 F 75 25 105/58 97
05/03/23 22:08 05/04/23 00:45 05/04/23 00:45 05/04/23 00:00 05/04/23 00:45
MDM/Problems Addressed
Differential Diagnosis Includes:
HPI and MDM Narrative:
82-year-old female presenting with altered mental status. Patient comes from a nursing facility. She does have a history of dementia. EMS stating that her roommate had indicated that she was 'off' all day today. When they arrived, screening EKG
showed concern for ST elevation anteriorly. However, patient too confused to complain of chest pain or shortness of breath. On arrival, EKG was performed which again shows ST elevation anteriorly but there is no reciprocal depressions. STEMI
alert was not called.
Patient is significantly confused and altered. Patient is sleepy and withdraws from pain but is not communicating. Supplemental oxygen started by EMS for hypoxia
Physical exam
General: Confused, altered, sleepy, eyes closed
HEENT: protecting airway. Dry mucous membranes
Neck: appears supple
CV: No evidence of cyanosis. Regular rate and rhythm
Resp: No accessory muscle use
Abd: Non-distended. No tenderness elicited
Extremities: Venous stasis bilateral lower extremities
Neuro: responding to pain
Psych: Flat affect
Skin: Intact
Problems Addressed including Acute and Chronic Conditions affecting care:
1. Altered mental status
Acuity: acute
Prognosis: unstable
Details: Will obtain basic blood work, CT head and urinalysis
2. Hepatic
Acuity: acute
Prognosis: unstable
Details: Will continue supplemental oxygen and obtain chest x-ray
3. Hypotension
Acuity: acute
Prognosis: unstable
Details: Likely in setting of infection versus dehydration. Patient started on IV fluids
3. UTI
Acuity: acute
Prognosis: unstable
Details: Rocephin started
Updates
Chest x-ray concerning for wide mediastinum. Given her altered mental status and hypoxia, will obtain CT chest
CT head negative for acute pathology. CT PE negative for clot. [facility] mentioned small filling defect but suggest that this is likely artifact.
Multiple reassessments made. Patient's mental status is improving with IV fluids. Will start antibiotics for UTI
Differential Diagnosis (but not limited to): Intracranial hemorrhage, pneumonia, hepatic encephalopathy, metabolic encephalopathy, UTI
Testing considered: D-dimer
Drug therapy (if applicable): OTC meds, please see d/c instruction regarding Rx drugs
Amount and/or Complexity of Data Reviewed
Clinical info obtained from: EMS
External data reviewed: History of dementia and cirrhosis
Labs I independently reviewed (but not limited to): White blood cell count normal, thrombocytopenia
Radiology: X-ray independently reviewed: Chest x-ray shows widened mediastinum
Pulse Ox: hypoxic
EKG independently reviewed: Sinus rhythm, left axis, no STEMI
Coin Machine Servicer Repairer: Sinus rhythm
Critical Care: N/A
Risk of Complication:
Social Determinants of health: Good social support
Discussed with other providers: hospitalist
Escalation of Care includes Admit/Obs: Given the altered mental status, dehydration and UTI, will admit
Occasional wrong word or 'sound a like' substitutions may have occurred due to the inherent limitations of voice recognition software. Read the chart carefully and recognize, using context, where substitutions have occurred.
*Critical Care Note
Total Time (30-74mins, 75-104mins- exclusive of procedures): Not Applicable
ED Attending Note
-
Portions of this chart may have been created with voice recognition software.� Occasional wrong word or��sound alike� substitutions may have occurred due to the inherent limitations of voice recognition software.
Discharge Plan
Departure
Patient Disposition: Admit
Date of Disposition: 05/04/23
Time of Disposition: 01:27
Admit to: Telemetry
Presentation/result/management discussed w/ accepting MD/DO: Hospitalist
Discharge Problem:
Acute UTI, Dehydration, Hypoxia
Prescriptions:
No Action
metoprolol succinate 50 MG tablet extended release 24 hr
50 mg PO DAILY
mesalamine [Lialda] 1.2 GM tablet,delayed release (DR/EC)
2.4 g PO DAILY
furosemide 40 mg Tablet
40 mg PO DAILY
acetaminophen 325 mg Tablet
650 mg PO Q6H PRN (Reason: mild pain/temp>100)
ipratropium-albuterol 0.5 mg-3 mg(2.5 mg base)/3 mL Solution For Nebulization
3 ml INHALATION R BID
diltiazem HCl [Cardizem CD] 240 mg Capsule,Extended Release 24hr
240 mg PO DAILY
olanzapine [Zyprexa] 5 mg Tablet
5 mg PO HS
Triad Wound Dressing Paste
1 applic TOPICAL TID
Rx Instructions:
apply to inner buttocks
triamcinolone acetonide 0.1 % cream
1 applic TOPICAL BID
Rx Instructions:
apply to b/l LE for skin irritation
magnesium hydroxide [Milk of Magnesia] 400 mg/5 mL Suspension
30 ml PO HS PRN (Reason: if no bm x 3 days)
bisacodyl [Dulcolax (bisacodyl)] 10 mg Suppository
10 mg [place] DAILY PRN (Reason: if no results for MOM)
nystatin 100,000 unit/gram Powder
1 applic TOPICAL DAILY
Rx Instructions:
apply to abdominal folds
losartan 100 mg Tablet
100 mg PO DAILY
aripiprazole [Abilify] 10 mg Tablet
10 mg PO DAILY
melatonin 5 mg Tablet
5 mg PO HS
Myrbetriq 50 mg tablet extended release 24 hr
50 mg PO DAILY
Referrals:
UNKNOWN,NO INTERVIEW [Family Provider] -
Interventions
Interventions:
*Risk Screen - Suicide Last Done: 05/03/23 22:19
*General Assessment Last Done: 05/03/23 22:19
*Neglect/Abuse Screening Last Done: 05/03/23 22:19
*ED COVID-19 Vaccine History Last Done: 05/03/23 22:19
ED- Cardiac Assessment Last Done: 05/03/23 22:45
ED- Neurological Assessment Last Done: 05/03/23 22:45
ED- Pulmonary Assessment Last Done: 05/03/23 22:45
[2023-05-03] MEDS: NSS 1000 IV (22:10)
[2023-05-03 22:17] LABS: Glucose - Point of Care 98 mg/dl (70-99)
[2023-05-03 22:24] LABS: % Basophils 0.6 % (0-2); % Eosinophils 1.4 % (0-6); % Immature Granulocytes 0.3 % (0-0.5); % Lymphocytes 23.5 % (20.5-51.1); % Monocytes 8.4 % (1.7-9.3); % Neutrophils 65.8 % (42.2-75.2); Absolute Basophils 0.1 10^3/uL (0-0.2); Absolute Eosinophils 0.1 10^3/uL (0-0.7); Absolute Lymphocytes 2.1 10^3/uL (1.2-3.4); Absolute Monocytes 0.8 10^3/uL (0.1-0.6); Absolute Neutrophils 5.9 10^3/uL (1.4-6.5); Hematocrit 39.6 % (37.0-47.0); Hemoglobin 12.9 g/dL (12.0-16.0); Mean Corp Hgb Conc. 32.6 g/dL (33.0-37.0); Mean Corpuscular Hgb 27.1 pg (27.0-31.0); Mean Corpuscular Volume 83.2 fL (81.0-99.0); Mean Platelet Volume 11.6 fL (7.4-10.4); Nucleated Red Blood Cells % 0 %; Platelet Count 59 10^3/uL (130-400); Red Blood Cell Count 4.76 10^6/uL (4.20-5.40); Red Cell Dist. Width 18.8 % (11.5-14.5)
[2023-05-03 22:25] VITALS: BMI 38.4
[2023-05-03 22:28] LABS: Lactic Acid 0.8 mmol/L (0.7-2.0)
[2023-05-03 22:34] LABS: Urine Albumin Trace (Neg - Trace); Urine Bilirubin Negative (Negative); Urine Character Slightly Cloudy (Clear); Urine Color Yellow; Urine Glucose Negative (Negative); Urine Ketone Negative (Negative); Urine Leukocyte 2+ (Negative); Urine Nitrite Negative (Negative); Urine Occult Blood Negative (Negative); Urine Urobilinogen Negative (Neg - 1+)
[2023-05-03 22:35] LABS: APTT 27.4 Sec (23.4-35.0); INR 1.27; PT 15.7 Sec (11.4-14.6)
[2023-05-03 22:38] LABS: Ammonia < 9 umol/L (9-30)
[2023-05-03 22:42] VITALS: BP 100/44
[2023-05-03 22:43] LABS: Blood Urea Nitrogen 73 mg/dl (7-17); Carbon Dioxide 31 mmol/L (22-30); Chloride 106 mmol/L (98-107); Estimated Creatinine Clearance 48 ml/min; Glucose 105 mg/dl (70-99); Sodium 136 mmol/L (135-145)
[2023-05-03 22:43] LABS: Urine Red Blood Cell 0-2 /HPF (0-2)
[2023-05-03 22:44] LABS: Urine Bacteria Few (Negative); Urine White Cell >100 /HPF (0-5)
[2023-05-03 22:45] VITALS: BP 105/74
[2023-05-03 22:52] LABS: NT-proBNP 1990 pg/ml; Troponin I 0.067 ng/ml
[2023-05-03 23:16] VITALS: BP 100/65
[2023-05-03 23:30] VITALS: BP 118/79
[2023-05-03 23:45] VITALS: BP 109/37
[2023-05-04] VITALS (48 sets, daily range): BP systolic 72–137; BP diastolic 35–100; PULSE 2–82; BMI 39.0
[2023-05-04] MEDS: ASPIRIN 300 MG RECTAL (00:45)
[2023-05-04] MEDS: ROCEPHIN 1000 MG IV (01:27)
[2023-05-04 01:52] LABS: COVID-19 Antigen Negative (Negative)
[2023-05-04] MEDS: NSS 1000 IV ×3 (03:08→20:41)
[2023-05-04 04:22] LABS: Venous Blood Gas B.E. 4.8 mmol/L (-4 to +4); Venous Blood Gas HCO3 33.2 mmol/L (22-27); Venous Blood Gas pCO2 69 mmHg (35-48); Venous Blood Gas pH 7.29 (7.32-7.43); Venous Blood Gas pO2 155 mmHg (30-50)
[2023-05-04] MEDS: NSS 500 IV (05:53)
--- NOTE | 2023-05-04 06:47 | HPS.HSE ---
Family Physician
-
Family Physician: NO INTERVIEW UNKNOWN
Chief Complaint
-
Altered Mental Status
History of Present Illness
Patient is an 82y F with PMH significant for senile dementia, PBC, recently diagnosed PE and hospital admission for severe thrombocytopenia who presents to ED from local [place] for evaluation of mental status change. Patient was noted by other
residents / staff to be 'not herself' for much of the day today. This evening, she was essentially unresponsive and was sent to the ED for further evaluation. Patient with no recent reports of cough, dyspnea, chest pain, fevers / chills, etc.
She was diagnosed with bilateral PE at an outside institution in 02/2023. She was started on anticoagulation at that time
She was admitted here 04/24 - 04/30 secondary to severe thrombocytopenia. After formal evaluation including Hematology consultation, it was determines that this was likely drug-induce thrombocytopenia secondary to cephalexin.
Patient was discharged to home with improving platelet counts and plan for further OP follow-up.
Note that she did have an episode of poor responsiveness / change in mental status on 04/29 in the evening. This resolved without any specific intervention.
Medical History
Past Medical History
Past Medical History: Reports Other
Additional Past Medical History:
Primary biliary cirrhosis
Ulcerative colitis
Bilateral PE (02/2023)
Chronic Lymphedema
GERD
Hypertension
Diverticulosis
Obesity
Severe Dementia
Drug-Induced Thrombocytopenia
Past Surgical History: Reports Other
Additional Past Surgical History:
Cataracts
Social History
Unable to obtain full social history at this time due to: Patient Non-verbal
Family History
Family History: Unable to Obtain
Allergies / Home Medications
Allergies reflects when Allergies were last updated in [employer].
Home Medications with original date entered in [employer]
Allergy/Medication List:
No med list was included with patient transfer from nursing facility.
Suspect that meds are similar to / unchanged from recent discharge, but will need formal reconciliation in the AM.
If medication reconciliation has not been performed, why?: Medication List N/A
Review of Systems
-
Unable to obtain full review of systems at this time due to: Patient Non-verbal
Physical Exam
Vital Signs
Vital Signs
Temp Pulse Resp BP Pulse Ox
99.2 F 72 17 128/57 95
05/03/23 22:08 05/04/23 06:15 05/04/23 06:15 05/04/23 06:15 05/04/23 06:15
Physical Exam
General: Other (82y F is somnolent / poorly responsive. Will withdraw from significant noxious stimuli. No verbal communication. Does not follow commands.)
HEENT: Moist mucous membranes and PERRLA
Respiratory: Other (Decreased BS bilaterally.)
Cardiac: S1/S2 and Regular Rhythm; No Murmur
GI: Non Tender, Non Distended, Normal Bowel Sounds and Other (Obese)
Musculoskeletal: No Clubbing, No Cyanosis and Other (Crusted / superficial ulcerated lesions on the digits of the R foot. Chronic bilateral LE skin changes. Mild erythema / increased warmth also bilaterally.)
Neuro: Other (Poorly responsive.)
Laboratory Results
-
05/03/23 22:05
05/03/23 22:05
Laboratory Results
PT 15.7 Sec (11.4-14.6) H 05/03/23 22:05
INR 1.27 05/03/23 22:05
APTT 27.4 Sec (23.4-35.0) 05/03/23 22:05
Lactic Acid Cancelled 05/04/23 02:15
Total Bilirubin Cancelled 05/03/23 22:05
AST Cancelled 05/03/23 22:05
ALT Cancelled 05/03/23 22:05
Alkaline Phosphatase Cancelled 05/03/23 22:05
Troponin I 0.067 ng/ml H* 05/03/23 22:05
Impression/Plan
-
A/P: Patient is an 82y F with PMH significant for dementia, hypertension, recent PE and recent thrombocytopenia who presents to ED for evaluation of mental status change.
Altered Mental Status / Somnolence
Hypercapnic Respiratory Failure
- Admit for further evaluation and treatment.
- VBGs done in the ED show pCO2 = 69 and pH = 7.29
- BiPAP started in the ED and will follow for clinical improvement.
- Pulmonary evaluation.
- Patient recently on supplemental oxygen given PEs / hypoxemia - would be cautious with supplementation and target SpO2 in the lower 90s.
Hypotension
History of Hypertension
- Patient with hypotension in the ED that responded to IVFs.
- Hold usual outpatient medications (all for now).
- Follow BP closely and resume some CV med / BP meds as appropriate.
- Patient is afebrile without leukocytosis or left shift and doubt infectious etiology, sepsis, etc.
Abnormal UA
- UA with > 100 WBC but negative nitrites and no reportable symptoms from patient.
- Would observe off of further abx for now pending culture data, clinical changes, etc.
Drug-Induced Thrombocytopenia
- This is improving from recent hospitalization.
- Platelets reached a low during that visit of 12k. 31k at discharge and 59k today.
- Patient did receive a single dose of IV ceftriaxone here in the ED prior to admission.
- Holding further abx as noted above.
- Monitor for additional changes in platelet counts, any evidence of active bleeding, etc.
Bilateral Pulmonary Emboli
- Diagnosed in 02/2023 at an outside institution.
- Anticoagulation has been on hold pending further improvement in platelets (target > 75k).
- CTA was done in the ED this evening for evaluation of transient hypoxemia and mental status change.
- This shows perhaps a minimal filling defect in a subsegmental branch, but no significant PE - clearly improved from prior.
- Continue to hold anticoagulation and follow platelets.
Chronic Lymphedema
RLE Ulcers / Excoriations
- Stable. Does not appear acutely infected.
- Local care.
- Check non-invasive vascular studies given appearance of crusted ulcerated lesions on the digits of the R foot - ? ischemia.
Senile Dementia
- Unclear to what degree her underlying / advanced dementia is contributing to oscillating mental status.
- Follow for any mood changes, acute delirium, etc.
- Hold all sedating meds, etc for now pending clinical improvement.
Code Status: Full
--- NOTE | 2023-05-04 07:39 | EDRN ---
This RN assumed care of pt at 7:25 am. Pt kept taking off BiPAP and this RN had to fight pt to replace BiPAP. Pt's pulse ox w/ good pleth decreased to 86%. Pt informed me w/ BiPAP over her head that she was not taking her mask off. Pt has Bipap on
at this time. This RN had to restrain her wrists, texted resop to check BiPAP at this time.
--- NOTE | 2023-05-04 07:44 | EDRN ---
This RN just texted DR Shaw which appears to be pt's assigned MD for a wrist restraint order at this time.
--- NOTE | 2023-05-04 07:47 | W.PN.HOSP.TC ---
Addendum entered and electronically signed by Myah Shaw MD 05/04/23 14:50:
Patient has been weaned off BiPAP, continue current oxygen support at 5 L via nasal cannula.
CT chest did not reveal convincing evidence of acute pulmonary embolism.
Can check lower extremity ultrasound.
Continue to hold therapeutic anticoagulation for now in setting of recent ITP.
With improved respiratory status, do not think pulmonary consult is needed at this time. Consult canceled.
Original Note:
Today's Communication/Plan
-
see A/P
Assessment / Plan
Assessment / Plan
82y F with PMH significant for senile dementia, PBC, recently diagnosed PE and hospital admission for severe thrombocytopenia who presents to ED from local [place] for evaluation of mental status change.� Patient was noted by other residents /
staff to be 'not herself' for much of the day.�In the evening, she was essentially unresponsive and was sent to the ED for further evaluation.� Patient with no recent reports of cough, dyspnea, chest pain, fevers / chills, etc.
She was diagnosed with bilateral PE at an outside institution in 02/2023.�She was started on anticoagulation at that time
She was admitted here 04/24 - 04/30 secondary to severe thrombocytopenia.� After formal evaluation including Hematology consultation, it was determined that this was likely drug-induce thrombocytopenia secondary to cephalexin.
Patient was discharged to home with improving platelet counts and plan for further OP follow-up.
Note that she did have an episode of poor responsiveness / change in mental status on 04/29 in the evening.� This resolved without any specific intervention.
A/P:
# Altered Mental Status / hypoactive delirium/ Somnolence
# Hypercapnic Respiratory Failure
VBGs done in the ED show pCO2 = 69 and pH = 7.29
BiPAP started, follow for clinical improvement.
Check follow up ABG and wean off BIPAP as tolerated
Pulmonary evaluation.
Follow CT head formal report
Patient recently on supplemental oxygen given PEs / hypoxemia - would be cautious with supplementation and target SpO2 in the lower 90s.
# Hypotension
# History of Hypertension
hypotension in the ED responded to IVFs.
Hold usual outpatient medications (all for now).
Follow BP closely and resume some CV med / BP meds as appropriate.
Patient is afebrile without leukocytosis or left shift and doubt infectious etiology, sepsis, etc.
# Abnormal UA
UA with > 100 WBC but negative nitrites and no reportable symptoms from patient.
Follow urine Cx
She was given 1 dose Ceftriaxone in ED (would avoid cephalosporin with possible Keflex induced ITP)
cont Levaquin for now
# Drug-Induced Thrombocytopenia
Platelet has improved from recent hospitalization.
Monitor for additional changes in platelet counts, any evidence of active bleeding, etc.
# Bilateral Pulmonary Emboli
Diagnosed in 02/2023 at an outside institution.
Anticoagulation has been on hold pending further improvement in platelets (target > 75k).
CTA was done in the ED for evaluation of transient hypoxemia and mental status change.
Follow formal report, prelim report shows perhaps a minimal filling defect in a subsegmental branch, but no significant PE - clearly improved from prior.
Continue to hold anticoagulation and follow platelets.
# Chronic Lymphedema
# RLE Ulcers / Excoriations
Stable.� Does not appear acutely infected.
Local care.
Check non-invasive vascular studies given appearance of crusted ulcerated lesions on the digits of the R foot - ? ischemia.
# Senile Dementia
Unclear to what degree her underlying / advanced dementia is contributing to oscillating mental status.
Follow for any mood changes, acute delirium, etc.
Hold all sedating meds, etc for now pending clinical improvement.
Code Status:� Full
DVT ppx: SCD for now until platelet count > 75 000
DW ED RN
Anticipated Discharge: 24 - 48 hours
Subjective/Interval History
-
Date of Service: May 04, 2023
Objective Data
-
Labs:
Laboratory Results
05/03/23
22:05
WBC 9.0
Hgb 12.9
Hct 39.6
Plt Count 59 L D
PT 15.7 H
INR 1.27
APTT 27.4
Sodium 136
Potassium
Chloride 106
Carbon Dioxide 31 H
BUN 73 H
Creatinine 1.0
Glucose 105 H
Calcium 10.0
Total Bilirubin Cancelled
AST Cancelled
ALT Cancelled
Alkaline Phosphatase Cancelled
Vital Signs:
Vital Signs
Temp Pulse Resp BP Pulse Ox
37.3 C 74 18 120/54 94
05/03/23 22:08 05/04/23 07:30 05/04/23 07:30 05/04/23 07:30 05/04/23 07:30
I&O
05/03/23 05/04/23 05/05/23
06:59 06:59 06:59
Output Total 200 / 200
Balance -200 / -200
Review of Systems
-
Unable to obtain full review of systems at this time due to: Dementia and Acuity
Physical Exam
-
General: Well Developed, Well Nourished and Obese
HEENT: Normocephalic, Atraumatic, Nose Appears Normal, Ears Appear Normal and Oxygen (BIPAP)
Respiratory: Clear to Auscultation and Non Labored Respirations; Negative Accessory Resp Muscle Use
Cardiac: Regular Rhythm and S1/S2
GI: Soft
Skin: Warm, Dry and Rash (BL LE chronic venous dermatosis)
Psych: Calm and Apparent Dementia
Data Reviewed
-
Labs: Labs Reviewed by me
--- NOTE | 2023-05-04 07:48 | EDRN ---
Admiassion orders processed at this time.
--- NOTE | 2023-05-04 07:52 | EDRN ---
Orders processed at this time.
--- NOTE | 2023-05-04 08:04 | EDRN ---
Dr. Shaw down to see pt and ordered ABG to see if pt can be changed to O2 via NC.
[2023-05-04] MEDS: PROTONIX IV 40 MG IV (08:14)
[2023-05-04] MEDS: NSS (PRESERVATIVE FREE) 10 ML IV (08:14)
--- NOTE | 2023-05-04 08:17 | EDRN ---
Pt just grabbing at hose to get BiPAP off. POX again in 80's w/ goo pleth. Resp therapist informed about ordered ABG at this time verbally as w/ a critical pt at this time.
--- NOTE | 2023-05-04 08:22 | EDRN ---
This RN even w/ restraints had to tackle BiPAP to replace it on pt as she grabbed BiPAP tubing after wriggling in a position to do so in bed. Pt remains very awake. Resp therapist in room to draw abg at this time.
[2023-05-04 08:33] LABS: Troponin I 0.052 ng/ml
--- NOTE | 2023-05-04 08:36 | EDRN ---
ABG drawn w/ my help. Pt remains restrained w/out any order at this time. Awaiting ABG to place pt on NC and remove BiPAP. Pt is on 16/5, rate 12 and oxygen 5 lpm at this time. Wrist restraints remain in place at this time.
--- NOTE | 2023-05-04 08:39 | EDRN ---
Pt has been 89-90% POX on Bipap at this time.
[2023-05-04 08:49] LABS: B.E. 6.5 mmol/L; HCO3 32.4 mmol/L (21-28); O2 Saturation % 93.6 % (94-98); PCO2 50 mmHg (32-35); PO2 61 mmHg (83-108); pH 7.42 (7.35-7.45)
[2023-05-04 08:59] LABS: TSH Reflex To Free T4 3.24 uIU/ml (0.47-4.68)
--- NOTE | 2023-05-04 09:14 | EDRN ---
At 8:50 PT was in to see pt. They were unable to do much per pt status at this time. PT stated that they will attempt the consult again tomorrow.
--- NOTE | 2023-05-04 09:58 | EDRN ---
Pt was taken off of BiPAP and placed on oxygen at 5lpm which is what it was on BiPAP (settings were 16/5, rate 12 and 5 lpm oxygen). pt pulling oxygen off but placed on above her head. Restraints to wrists removed. pt very combative and grabbing
this nurse repeatedly and roughly. Pt had gotten BiPAP off and it was alarming as well as it diconnected from the machine and pulse ox was off and on the floor.
--- NOTE | 2023-05-04 10:08 | EDRN ---
POX 99% on oxygen at 4lpm so decreased to 4 lpm at this time. Spouse and daughter in room w/ pt at this time.
--- NOTE | 2023-05-04 10:22 | EDRN ---
Pt was 97% on 4lpm so oxygen decreased to 3lpm.
--- NOTE | 2023-05-04 10:30 | EDRN ---
Pt decreased at this time to 3lpm for POX 96%.
--- NOTE | 2023-05-04 10:34 | EDRN ---
Dr. Shaw was TT'd about pt's lung sounds w/ tight and insp and exp wheezes and usually gets a duoneb BID per med rec.
[2023-05-04] MEDS: DUONEB 3 ML INH ×3 (10:51→20:46)
[2023-05-04] MEDS: LEVAQUIN 150 IV (10:51)
--- NOTE | 2023-05-04 11:54 | PHANOTE ---
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
--- NOTE | 2023-05-04 12:03 | EDRN ---
Pt positioned on her R side w/ heels off of stretcher after turning and changing sl soiled diaper. Purewyck remains in place.
--- NOTE | 2023-05-04 12:06 | WOUNDNOTE ---
WOUND/SKIN CARE NOTE: Pt identified by name and .
R toes
R lower leg lateral aspect
R lower leg lateral aspect
L lower leg medial aspect
R medial ankle
R medial posterior calf
R lower leg lateral aspect mid lower leg
Posterior ankle and heel R leg
Posterior mid R thigh
Sacral area w/ L side seen
Sacral area close up Pt on her L side
L posterior lower leg
Sacral area, pt on her R side
--- NOTE | 2023-05-04 12:28 | EDRN ---
Pt taking her pulse ox off and her oxygen.
--- NOTE | 2023-05-04 12:54 | EDRN ---
This RN went in to check on pt and she was about to remove L AC IV at this time. IV in that arm and in R arm wrapped loosely in danika.
--- NOTE | 2023-05-04 15:22 | PTOTSP ---
SPEECH THERAPY SWALLOW EVALUATION:
Clinical signs of oropharyngeal dysphagia, likely acute related to AMS. Patient at risk for aspiration and related complications given confusion, concerning CXR, and underlying dementia. Patient currently exhibiting no signs or symptoms of
aspiration at bedside. Recommend IDDSI Level 4 Puree diet with thin liquids. Medications whole in puree. Strict aspiration precautions includin:1 assist/100% supervision; upright positioning; only feed when patient awake/alert; small sips/bites;
slow rate of intake; only provide p.o. if RR<30 and SpP2>90%. Speech therapy to follow, assess diet tolerance and modify as appropriate, monitor CXR and labs, and provide continued education regarding aspiration risks and precautions.
RECOMMEND:
1) IDDSI Level 4 Puree diet with thin liquids
2) Medications whole in puree
3) Strict aspiration precautions includin:1 assist/100% supervision; upright positioning; only feed when patient awake/alert; small sips/bites; slow rate of intake; only provide p.o. if RR<30 and SpP2>90%
4) Speech therapy to follow, assess diet tolerance and modify as appropriate, monitor CXR and labs, and provide continued education regarding aspiration risks and precautions
--- NOTE | 2023-05-04 16:31 | PTCARENOTE ---
Received pt from the ED, Ox1, confused, forgetful and restless. Bed alarm in place. Pt pulling at O2, IV's, Purewick. IV's wrapped, NSS currently infusing through L AC. NSR on tele, weak pedal pulses, LE lymphedema. 87-91% on RA, placed on 1L NC
with sats consistently >90%. Pt does not complain of any SOB. Breath sounds clear but diminished. Incontinent of urine, Purewick in place. R heel DTI, L heel clear- both covered with foams. Scattered stage 2 sacral ulcers, cleaned and covered with
foam dressing. Q2 turns.
[2023-05-04 19:33] LABS: Troponin I 0.052 ng/ml
--- NOTE | 2023-05-04 23:28 | PTCARENOTE ---
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 Provider notified.
[2023-05-05] VITALS (16 sets, daily range): BP systolic 103–180; BP diastolic 58–124; PULSE 94; O2SAT 93–95; BMI 40.9
[2023-05-05 01:57] LABS: Hematocrit 36.3 % (37.0-47.0); Hemoglobin 11.9 g/dL (12.0-16.0); Mean Corp Hgb Conc. 32.8 g/dL (33.0-37.0); Mean Corpuscular Hgb 27.4 pg (27.0-31.0); Mean Corpuscular Volume 83.6 fL (81.0-99.0); Platelet Count 57 10^3/uL (130-400); Red Blood Cell Count 4.34 10^6/uL (4.20-5.40); Red Cell Dist. Width 18.8 % (11.5-14.5); White Blood Cell Count 7.4 10^3/uL (4.8-10.8)
[2023-05-05 02:10] LABS: Blood Urea Nitrogen 27 mg/dl (7-17); Calcium 9.5 mg/dl (8.4-10.2); Carbon Dioxide 30 mmol/L (22-30); Chloride 111 mmol/L (98-107); Estimated Creatinine Clearance 70 ml/min; Glucose 109 mg/dl (70-99); Potassium 3.9 mmol/L (3.5-5.1); Sodium 142 mmol/L (135-145); eGFR > 60.00
[2023-05-05 02:27] LABS: Troponin I 0.062 ng/ml
--- NOTE | 2023-05-05 04:49 | PTCARENOTE ---
Addendum entered by Angelica Roque 05/05/23 06:24:
Nurse stated she did hygiene not temperature.. I did patient temperature.
Original Note:
Nurse did 0300 vitals, and hygiene.
[2023-05-05] MEDS: DUONEB 3 ML INH ×4 (07:23→19:30)
--- NOTE | 2023-05-05 09:39 | W.PN.HOSP.TC ---
Today's Communication/Plan
-
see bold
Assessment / Plan
Assessment / Plan
82y F with PMH significant for senile dementia, PBC, recently diagnosed PE and hospital admission for severe thrombocytopenia who [place] from local [place] for evaluation of mental status change.� Patient was noted by other residents /
staff to be 'not herself' for much of the day.�In the evening, she was essentially unresponsive and was sent to the ED for further evaluation.� Patient with no recent reports of cough, dyspnea, chest pain, fevers / chills, etc.
She was diagnosed with bilateral PE at an outside institution in 02/2023.�She was started on anticoagulation at that time
She was admitted here 04/24 - 04/30 secondary to severe thrombocytopenia.� After formal evaluation including Hematology consultation, it was determined that this was likely drug-induce thrombocytopenia secondary to cephalexin.
Patient was discharged to home with improving platelet counts and plan for further OP follow-up.
Note that she did have an episode of poor responsiveness / change in mental status on 04/29 in the evening.� This resolved without any specific intervention.
A/P:
# Altered Mental Status / hypoactive delirium/ Somnolence
# Hypercapnic Respiratory Failure
VBGs done in the ED show pCO2 = 69 and pH = 7.29
Improve on BiPAP
Discussed with nursing to not over oxygenate, target pulse ox 90-92%
# Hypotension
# History of Hypertension
Blood pressure in the 80s systolic in the ER, responded to IV fluids
Hold usual outpatient medications (all for now).
Follow BP closely and resume some CV med / BP meds as appropriate.
Patient is afebrile without leukocytosis or left shift and doubt infectious etiology, sepsis, etc.
# Abnormal UA
UA with > 100 WBC but negative nitrites and no reportable symptoms from patient.
Urine culture negative, discontinue antibiotics
# Drug-Induced Thrombocytopenia
Platelet has improved from recent hospitalization.
Monitor for additional changes in platelet counts, any evidence of active bleeding, etc.
# Bilateral Pulmonary Emboli
Diagnosed in 02/2023 at an outside institution.
Anticoagulation has been on hold pending further improvement in platelets (target > 75k).
Chest CT shows 'Questionable small filling defect in proximal right lower lobe pulmonary artery, most likely artifactual'
Continue to hold anticoagulation and follow platelets.
# Chronic Lymphedema
# RLE Ulcers / Excoriations
Stable.� Does not appear acutely infected.
Continue wound care
# Senile Dementia
Unclear to what degree her underlying / advanced dementia is contributing to oscillating mental status.
Follow for any mood changes, acute delirium, etc.
Hold all sedating meds, etc for now pending clinical improvement.
#Obesity due to excess calories
Affects all aspects of care
DVT ppx: SCD for now until platelet count > 75 000
Full code
Total time spent to see the patient on the floor, examine the patient, review data and lab results, discuss treatment plan with patient, nursing staff around 51 minutes.
Physical Exam
General: Obese, no acute distress
HEENT: Normocephalic, Atraumatic, EOMI, MMM
Respiratory: Clear to Auscultation bilaterally
Cardiac: Normal S1/S2, Regular Rate and Rhythm
GI: Soft, Nontender, Nondistended, Normal Bowel Sounds
Extremities: No Clubbing, Cyanosis, or Edema
Neuro: Oriented to person, not place or time
Psych: Calm, Cooperative
Derm: Ulcers noted on right lower extremity
Anticipated Discharge: 24 - 48 hours
Subjective/Interval History
-
Date of Service: May 05, 2023
Patient is pleasantly confused.
Objective Data
-
Labs:
Laboratory Results
05/05/23
01:46
WBC 7.4
Hgb 11.9 L
Hct 36.3 L
Plt Count 57 L
Sodium 142
Potassium 3.9
Chloride 111 H
Carbon Dioxide 30
BUN 27 H
Creatinine 0.7
Glucose 109 H
Calcium 9.5
Vital Signs:
Vital Signs
Temp Pulse Resp BP Pulse Ox
97.9 F 100 20 147/69 96
05/05/23 03:24 05/05/23 07:27 05/05/23 07:27 05/05/23 06:00 05/05/23 07:27
I&O
05/04/23 05/05/23 05/06/23
06:59 06:59 06:59
Intake Total 3120 / 3120
Output Total 200 / 200 2500 / 2500
Balance -200 / -200 620 / 620
[2023-05-05] MEDS: NSS 1000 IV (09:47)
[2023-05-05] MEDS: NSS (PRESERVATIVE FREE) 10 ML IV (09:49)
[2023-05-05] MEDS: PROTONIX IV 40 MG IV (09:49)
[2023-05-05] MEDS: LEVAQUIN 150 IV (11:35)
--- NOTE | 2023-05-05 12:47 | WOUNDNOTE ---
BUTTOCKS 2ND VIEW
--- NOTE | 2023-05-05 12:47 | WOUNDNOTE ---
L POSTERIOR LEG AND HEEL
--- NOTE | 2023-05-05 12:50 | WOUNDNOTE ---
WON RN note: Patient admitted with thrombocytopenia, platelet count 12, purpura rash RLE/foot/toes. Patient admitted from [facility].
See H&P for complete history.
PMH: LE lymphedema (on po Keflex), dementia, PE, biliary cirrhosis, ulcerative colitis, diverticulitis, obesity.
Wound Location and type/assessment: Patient known to service, seen on 04/25/23. Has same stage 3 buttocks pressure injuries with yellow slough and some pink tissue. Redness surrounding with scattered dark red lopez, suspect areas that bled. MASD in
skin folds, R groin with red line in crease, no drainage. L anterior upper medial thigh with intact scab and scar from previous abrasion. R dorsal 2,3, 4th toes with dried flat blood blisters, no drainage, suspect superficial. Both legs with chronic
redness and lymphedema, SCD's in use. Arterial and venous ultrasound ordered and pending. R lateral heel with old dried blood blister, skin peeled away revealing healthy skin underneath.
Appetite: good.
Pressure redistribution devices in place: On [facility] air bed, will need air mattress if transferred to floor, nurse Crys aware. Patient cannot turn self in bed, purple wedge in use with turning schedule. Air chair cushion in use.
Plan: Silicone foam dressing changed on buttocks and applied to L posterior thigh for protection. Will order Santyl adaptic and dry dressing for buttocks ulcers to start tomorrow. R toes open to air. Applied Adhesive Foams to heels, placed pillow
under calves. Waffle air cushion placed in chair when oob. Patient turned to R semi side lying position with help from TAMIKO Spangler. Dr. Seay was in during visit, hospitalist approved local skin/wound care. Recommend leg elevation when oob and SCD's to
continue when in bed. PLT's low-57, hold on compression stockings.
Care plan to be updated and will follow as needed.
Note to case management of equipment requested for discharge: Air mattress at [facility] if not already in place.
Recommend follow up at wound care center upon discharge.
--- NOTE | 2023-05-05 13:13 | PTCARENOTE ---
Patient confused. Pulled IV line out and taking off monitoring equipment. Bilateral mitts ordered. Speech evaluated patient again at bedside. Aspiration precautions, diet IDDSI 4 with thin liquids. Weaned o2 patient has been on RA since 8am,
spo2 91-94%. Will continue to monitor frequently.
--- NOTE | 2023-05-05 14:44 | CM ---
Patient from [facility] with Hx dementia with Dx Altered Mental Status, Hypercapnic Respiratory Failure, Hypotension. PT & OT recommend skilled rehab. Per nurse; confused, requiring hand mitts as pulled out IV.
Spoke with Jazmine, [facility]; the patient was at their SNF for short term rehab. She was confused, requires assist of 1 for ADLs and was essentially w/c bound. They are able to accept the patient back.
Spoke with patient's Abilio;
the patient had been discharged from [facility] to [facility] then transferred to [facility], then admitted to and discharged to [facility], and now readmitted.
She has her own w/c and RW. He is aware that his has been confused while here.
says his son Shiv is helping him with intermediate card tender care paperwork for [facility], and the family is hoping that she will be able to be accepted there at discharge or in the future. The family has also submitted an application for the
Waiver program to obtain a caregiver at home.
His daughter Gregoria Blackburn (ph [phone]) can also be a contact.
SNF referrals placed for [facility] and [facility].
[2023-05-05] MEDS: HYDROPHOR 1 APPLIC TOPICAL (15:04)
[2023-05-05] MEDS: DESENEX/MITRAZOL/ZEASORB 1 APPLIC TOPICAL (20:31)
[2023-05-05] MEDS: TYLENOL 650 MG PO (20:35)
[2023-05-05] MEDS: NSS IV (20:39)
[2023-05-06] VITALS (7 sets, daily range): BP systolic 98–130; BP diastolic 54–108; BMI 40.7
--- NOTE | 2023-05-06 05:17 | PTCARENOTE ---
Addendum entered by Rebecca Blackburn RN 05/06/23 06:22:
Pt having what appears to be periods of apnea, spo2 dropping to 60's% then returning after a few moments to 90's.
Original Note:
Pt appeared to rest well through out the night. Pt getting Mitts off numerous timed through out the night, seen pulling on IV twice. Will call IV team to reassess right forearm site. In shed boss Pt AAOX2 able to laugh and talk about ,
much improved from last night.
[2023-05-06 06:23] LABS: Hematocrit 39.3 % (37.0-47.0); Hemoglobin 12.6 g/dL (12.0-16.0); Mean Corp Hgb Conc. 32.1 g/dL (33.0-37.0); Mean Corpuscular Hgb 26.8 pg (27.0-31.0); Mean Corpuscular Volume 83.6 fL (81.0-99.0); Mean Platelet Volume 11.4 fL (7.4-10.4); Platelet Count 56 10^3/uL (130-400); Red Cell Dist. Width 18.8 % (11.5-14.5); White Blood Cell Count 5.9 10^3/uL (4.8-10.8)
[2023-05-06 06:44] LABS: Blood Urea Nitrogen 15 mg/dl (7-17); Calcium 9.4 mg/dl (8.4-10.2); Carbon Dioxide 33 mmol/L (22-30); Chloride 107 mmol/L (98-107); Estimated Creatinine Clearance 73 ml/min; Glucose 93 mg/dl (70-99); Potassium 4.2 mmol/L (3.5-5.1); Sodium 137 mmol/L (135-145); eGFR > 60.00
[2023-05-06] MEDS: DUONEB 3 ML INH (08:07)
[2023-05-06] MEDS: PROTONIX IV 40 MG IV (09:33)
[2023-05-06] MEDS: NSS (PRESERVATIVE FREE) 10 ML IV (09:33)
[2023-05-06] MEDS: FLUSH (NSS) 1 FLUSH IV ×2 (09:33→11:59)
[2023-05-06] MEDS: DESENEX/MITRAZOL/ZEASORB 1 APPLIC TOPICAL (09:34)
[2023-05-06] MEDS: HYDROPHOR 1 APPLIC TOPICAL (09:34)
--- NOTE | 2023-05-06 10:31 | W.PN.HOSP.TC ---
Addendum entered and electronically signed by Leonard Seay MD 05/07/23 08:15:
Patient also has Acute on Chronic Hypercapnic Resp Failure
Addendum entered and electronically signed by Leonard Seay MD 05/07/23 08:14:
Patient also has stage 3 vs unstageable lower sacral/coccyx/buttocks pressure injuries with yellow fibrin slough and some pink tissue
Addendum entered and electronically signed by Leonard Seay MD 05/07/23 08:13:
Patient also has Non AL troponin elevation
Original Note:
Today's Communication/Plan
-
Medically stable for discharge back to the [place] [facility] today
Assessment / Plan
Assessment / Plan
82y F with PMH significant for senile dementia, PBC, recently diagnosed PE and hospital admission for severe thrombocytopenia who presents to ED from local [place] for evaluation of mental status change.� Patient was noted by other residents /
staff to be 'not herself' for much of the day.�In the evening, she was essentially unresponsive and was sent to the ED for further evaluation.� Patient with no recent reports of cough, dyspnea, chest pain, fevers / chills, etc.
She was diagnosed with bilateral PE at an outside institution in 02/2023.�She was started on anticoagulation at that time
She was admitted here 04/24 - 04/30 secondary to severe thrombocytopenia.� After formal evaluation including Hematology consultation, it was determined that this was likely drug-induce thrombocytopenia secondary to cephalexin.
Patient was discharged to home with improving platelet counts and plan for further OP follow-up.
Note that she did have an episode of poor responsiveness / change in mental status on 04/29 in the evening.� This resolved without any specific intervention.
A/P:
# Altered Mental Status / hypoactive delirium/ Somnolence
# Hypercapnic Respiratory Failure
VBGs done in the ED show pCO2 = 69 and pH = 7.29
Mentation back to baseline status post BiPAP
Discussed with nursing to not over oxygenate, target pulse ox 90-92%
Medically stable for discharge back to the [place] [facility] today
# Hypotension
# History of Hypertension
Blood pressure in the 80s systolic in the ER, responded to IV fluids
Patient is afebrile without leukocytosis or left shift and doubt infectious etiology, sepsis, etc.
Blood pressure improved today but still soft overall
Permanently discontinue losartan and diltiazem upon discharge
Can resume metoprolol and Lasix upon discharge
# Abnormal UA
UA with > 100 WBC but negative nitrites and no reportable symptoms from patient.
Urine culture negative, discontinue antibiotics
# Drug-Induced Thrombocytopenia
Platelet has improved from recent hospitalization.
Monitor for additional changes in platelet counts, any evidence of active bleeding, etc.
# Bilateral Pulmonary Emboli
Diagnosed in 02/2023 at an outside institution.
Anticoagulation has been on hold pending further improvement in platelets (target > 75k).
Chest CT shows 'Questionable small filling defect in proximal right lower lobe pulmonary artery, most likely artifactual'
Continue to hold anticoagulation and follow platelets.
# Chronic Lymphedema
# RLE Ulcers / Excoriations
Stable.� Does not appear acutely infected.
Continue wound care
# Senile Dementia
Unclear to what degree her underlying / advanced dementia is contributing to oscillating mental status.
Follow for any mood changes, acute delirium, etc.
Hold all sedating meds, etc for now pending clinical improvement.
#Obesity due to excess calories
Affects all aspects of care
DVT ppx: SCD for now until platelet count > 75 000
Full code
Physical Exam
General: Obese, no acute distress
HEENT: Normocephalic, Atraumatic, EOMI, MMM
Respiratory: Clear to Auscultation bilaterally
Cardiac: Normal S1/S2, Regular Rate and Rhythm
GI: Soft, Nontender, Nondistended, Normal Bowel Sounds
Extremities: No Clubbing, Cyanosis, or Edema
Neuro: Oriented to person, not place or time
Psych: Calm, Cooperative
Derm: Ulcers noted on right lower extremity
Anticipated Discharge: Today
Subjective/Interval History
-
Date of Service: May 06, 2023
Patient is alert and awake, eating her meal well.
Objective Data
-
Labs:
Laboratory Results
05/06/23
05:20
WBC 5.9
Hgb 12.6
Hct 39.3
Plt Count 56 L
Sodium 137
Potassium 4.2
Chloride 107
Carbon Dioxide 33 H
BUN 15
Creatinine 0.6
Glucose 93
Calcium 9.4
Vital Signs:
Vital Signs
Temp Pulse Resp BP Pulse Ox
98.3 F 84 12 127/54 92
05/06/23 09:41 05/06/23 08:11 05/06/23 08:11 05/06/23 06:00 05/06/23 08:11
I&O
05/05/23 05/06/23 05/07/23
06:59 06:59 06:59
Intake Total 3120 / 3120 2235 / 2235
Output Total 2500 / 2500 1490 / 1490
Balance 620 / 620 745 / 745
[2023-05-06] MEDS: DUONEB INH ×2 (11:10→11:34)
[2023-05-06] MEDS: LEVAQUIN 150 IV (11:59)
--- NOTE | 2023-05-06 12:03 | PN.CDI ---
CDI
- -
CDI:
Physician Documentation Request
Admit Date: 05/04/23 03:48
Dear Doctor Do,
Patient presented to ED with altered mental status, shortness of breath.
Hospitalist progress notes states 'Hypercapnic Respiratory Failure'
Clarify which of the following accurately represents the acuity of the hypercapnic Respiratory Failure
____ Acute
Acute on Chronic
Chronic
____ Other
Use of terms such as suspected, likely, concern for, or probable (associated with a specific diagnosis that is being evaluated, monitored, or treated as if it exists) are acceptable and can be coded in the inpatient setting, when documented at the
time of discharge.
Thank you,
Zaria Caballero RN, BSN
CDI Specialist
tiger text
Please use your independent medical judgment in providing your response.
--- NOTE | 2023-05-06 12:12 | PTCARENOTE ---
Removed bilateral mitts from patient. Patient calm and not agitated.
--- NOTE | 2023-05-06 12:22 | PN.CDI ---
CDI
- -
CDI:
Physician Documentation Request
Admit Date: 05/04/23 03:48
Dear Doctor Do,
05/05 wocn note states ' Patient known to service, seen on 04/25/23. Has same stage 3 pressure injuries with yellow slough and some pink tissue'
04/25 wocn note states ' stage 3 vs unstageable lower sacral/coccyx/buttocks pressure injuries with yellow fibrin slough and some pink tissue'
Physician documentation of the type and location of wounds is required for compliant documentation. Based on the above clinical findings and your assessment, please provide the following in your progress note:
1. Location of the ulcer/wound, including laterality.
2. Type (etiology) of ulcer/wound:
- Traumatic wound
- Pressure (decubitus) ulcer
- Other
Use of terms such as suspected, likely, concern for, or probable (associated with a specific diagnosis that is being evaluated, monitored, or treated as if it exists) are acceptable and can be coded in the inpatient setting, when documented at the
time of discharge.
Thank you,
Zaria Caballero RN, BSN
CDI Specialist
tiger text
Please use your independent medical judgment in providing your response.
*Source: National Pressure Ulcer Advisory Panel (NPUAP)
--- NOTE | 2023-05-06 12:29 | PN.CDI ---
CDI
- -
CDI:
Physician Documentation Request
Admit Date: 05/04/23 03:48
Dear Doctor Do,
Patient admitted with 'Altered Mental Status / hypoactive delirium/ Somnolence, Hypercapnic Respiratory Failure'
Troponin's resulted as follows:
05/03/23 05/04/23 05/04/23
22:05 08:03 18:50
Troponin I 0.067 H* 0.052 H* 0.052 H*
05/05/23
01:46
Troponin I 0.062 H*
Based on the above, could you provide a diagnosis that supports the above lab abnormalities and additional evaluation/ monitoring:
Non SD troponin elevation
Type II SD demand Ischemia
Other
Use of terms such as suspected, likely, concern for, or probable (associated with a specific diagnosis that is being evaluated, monitored, or treated as if it exists) are acceptable and can be coded in the inpatient setting, when documented at the
time of discharge.
Thank you,
Zaria Caballero RN, BSN
CDI Specialist
tiger text
Please use your independent medical judgment in providing your response.
--- NOTE | 2023-05-06 12:40 | W.DCSUMMARY ---
Discharge Summary
Discharge Data
Date of Admission: 05/04/23
Date of Discharge: 05/06/23
-
Pending Results: No
Hospital Course
Discharge diagnosis:
Acute on chronic hypercapnic respiratory failure
Acute hypercapnic encephalopathy
Hypotension
History of hypertension
Drug-induced thrombocytopenia
History of bilateral pulmonary embolism in February 2023
Stage III sacral decubitus ulcer
Abnormal urinalysis
Myocardial infarction troponin elevation
Chronic lymphedema
Senile dementia
Obesity due to excess calories
Consults: None
Chest CT:
MARKEDLY LIMITED study, as detailed above without gross findings to confirm central pulmonary embolism. Questionable small filling defect in proximal right lower lobe pulmonary artery, most likely artifactual. Cardiomegaly with heart larger in size
in comparison to most recent prior CT.
Head CT:
No acute intracranial abnormalities.
Findings again seen compatible with diffuse cortical atrophy with nonspecific white matter changes as described above.
Hospital course:
82-year-old female with a past medical history of senile dementia, morbid obesity, recently diagnosed pulmonary embolism, and severe drug-induced pancytopenia was admitted for acute hypercapnic encephalopathy and acute on chronic hypercapnic
respiratory failure. Patient was treated with BiPAP, her hypercapnia resolved, and her mentation returned to baseline.
It is very important that the patient is not over oxygenated. Her target pulse ox is 90-92%, otherwise she becomes hypercapnic. This was relayed to the intermediate on her discharge instructions.
Patient's hospital course was complicated by hypotension. Her blood pressure responded to IV fluids. She is afebrile, there is no leukocytosis. Her urine analysis was abnormal, but urine culture was negative for growth. She does have a history
of hypertension. Her losartan, diltiazem, metoprolol, and Lasix were held. Her blood pressure improved. We recommended discontinuation of her losartan and diltiazem. She can resume metoprolol and Lasix upon discharge.
Patient was recently hospitalized at [facility] for drug-induced thrombocytopenia. Her anticoagulation has been held for her bilateral pulmonary embolism until her platelet counts are greater than 75,000. Her platelet count was 56,000 on
the day of discharge, therefore anticoagulation continues to be on hold. She did have a repeat chest CT, results noted as above.
Patient's multiple medical conditions have been optimized. She is medically stable for discharge back to the intermediate. She needs to follow-up with her primary care doctor 1 week.
Disposition: halfway
Discharge planning: Required 38 minutes
Discharge Plan
-
Patient Disposition: Halfway/SNF
Discharge Diagnosis/Procedures: Hypercapnic encephalopathy, hypotension, drug-induced thrombocytopenia, bilateral pulmonary emboli, chronic lymphedema, senile dementia, obesity due to excess calories
Condition: Good
Diet: Other diet
Additional Diets: Pur�ed diet, with meds whole in applesauce, aspiration precautions, needs assistance for feeding
Activity: As tolerated
Blood Work: CBC, BMP/Mg level on 05/12/23
Activity Restrictions/Additional Instructions:
Please do not over oxygenate, target pulse ox 90-92%
It is very important to not over oxygenate, as this will cause hypercapnia, somnolence, and confusion.
Hold Eliquis/anticoagulation until platelets are greater than 75,000.
Your blood pressure in the hospital is low, we recommend stopping losartan and Cardizem.
Follow-up with your primary care doctor in 3 days.
Wound Care Instructions
Buttocks: clean with saline, skin prep periwound, Santyl to base of wound followed by adaptic and large silicone foam or abd pad and paper tape, change daily and prn drainage.
fungal powder to skin folds after bathing
mineral oil to legs daily after bathing.
Air mattress
offloading cushion
Increase protein in diet.
Follow up at wound care center call for an appointment.
Referrals:
UNKNOWN,NO INTERVIEW [Family Provider] -
Prescriptions:
Continued
metoprolol succinate 50 MG tablet extended release 24 hr
50 mg PO DAILY
mesalamine [Lialda] 1.2 GM tablet,delayed release (DR/EC)
2.4 g PO DAILY
furosemide 40 mg Tablet
40 mg PO DAILY
acetaminophen 325 mg Tablet
650 mg PO Q6H PRN (Reason: mild pain/temp>100)
ipratropium-albuterol 0.5 mg-3 mg(2.5 mg base)/3 mL Solution For Nebulization
3 ml INHALATION R BID
olanzapine [Zyprexa] 5 mg Tablet
5 mg PO HS
Triad Wound Dressing Paste
1 applic TOPICAL BID
Rx Instructions:
apply to inner buttocks
triamcinolone acetonide 0.1 % cream
1 applic TOPICAL BID
Rx Instructions:
apply to b/l LE for skin irritation
magnesium hydroxide [Milk of Magnesia] 400 mg/5 mL Suspension
30 ml PO HSPRN PRN (Reason: if no bm x 3 days)
bisacodyl [Dulcolax (bisacodyl)] 10 mg Suppository
10 mg AL DAILY PRN (Reason: if no results for MOM)
nystatin 100,000 unit/gram Powder
1 applic TOPICAL DAILY
aripiprazole [Abilify] 10 mg Tablet
10 mg PO DAILY
melatonin 5 mg Tablet
5 mg PO HS
Myrbetriq 50 mg tablet extended release 24 hr
50 mg PO DAILY
acetaminophen [Tylenol] 325 mg Tablet
650 mg PO Q4HPRN PRN (Reason: fever)
Discontinued
diltiazem HCl [Cardizem CD] 240 mg Capsule,Extended Release 24hr
240 mg PO DAILY
losartan 100 mg Tablet
100 mg PO DAILY
Discharge Orders:
Discharge Patient (As Directed); Ordered 05/06/23
Ordered By: Leonard Seay
Discharge Date and Time
Discharge Date/Time: 05/06/23 14:44
[2023-05-06] MEDS: SANTYL OINTMENT 1 APPLIC TOPICAL (13:16)
--- NOTE | 2023-05-06 13:46 | CM ---
Patient from [facility] with Hx dementia with Dx Altered Mental Status, Hypercapnic Respiratory Failure, Hypotension. PT & OT recommend skilled rehab. Seen by wound care nurse. Per nurse; confused, mitts able to be removed.
Spoke with [facility]; informed her of family's interest to have patient there in LTC, and that they previously submitted application. She does not have an available SNF bed at this time.
Spoke with [facility]; they are able to accept the patient back today. The for report [phone], fax [phone].
Phone call to patient's Abilio; left message that [facility] not [facility] an available bed and the patient will be set up to return to [facility] today by ambulance- no callback received.
Spoke with daughter Gregoria Blackburn; provided update that [facility] does not have an available bed. She agrees with the patient returning to [facility] today by ambulance. IMM completed and copy sent to her email [email or web address].
Plan return to [facility] today by ambulance.
== END 2023-05-06 14:44 | DRG 189 ==
LOC: IMU 03:48
PROVIDERS: Internal Medicine; ADMITTING PHYSICIAN Hospitalist; ATTENDING PHYSICIAN Family Medicine; EMERGENCY PHYSICIAN Student in an Organized Health Care Education/Training Program
PROC: 5A09357 Assistance with Respiratory Ventilation, Less than 24 Consecutive Hours, Continuous Positive Airway Pressure (ICD-10-PCS; 2023-05-04)
DX: J96.22 Acute and chronic respiratory failure with hypercapnia (principal); D61.811 Other drug-induced pancytopenia; L89.153 Pressure ulcer of sacral region, stage 3; I26.94 Multiple subsegmental thrombotic pulmonary emboli without acute cor pulmonale; N39.0 Urinary tract infection, site not specified; K51.90 Ulcerative colitis, unspecified, without complications; Z68.41 Body mass index [BMI] 40.0-44.9, adult; I5A Non-ischemic myocardial injury (non-traumatic); L97.919 Non-pressure chronic ulcer of unspecified part of right lower leg with unspecified severity; F05 Delirium due to known physiological condition; G93.49 Other encephalopathy; J96.21 Acute and chronic respiratory failure with hypoxia; I10 Essential (primary) hypertension; F03.C0 Unspecified dementia, severe, without behavioral disturbance, psychotic disturbance, mood disturbance, and anxiety; I95.9 Hypotension, unspecified; E66.01 Morbid (severe) obesity due to excess calories; I89.0 Lymphedema, not elsewhere classified; K21.9 Gastro-esophageal reflux disease without esophagitis; T36.1X5A Adverse effect of cephalosporins and other beta-lactam antibiotics, initial encounter; Y92.129 Unspecified place in nursing home as the place of occurrence of the external cause; K57.90 Diverticulosis of intestine, part unspecified, without perforation or abscess without bleeding; D69.59 Other secondary thrombocytopenia; Z11.52 Encounter for screening for COVID-19
CPT/HCPCS: 36600; 70450; 71045; 71275; 80048; 81003; 81015; 82140; 82805; 82962; 83605; 83880; 84443; 84484; 85025; 85027; 85610; 85730; 87086; 87502; 87811; 92526; 92610; 93005; 94640; 94660; 96361; 96365; 96366; 96375; 97162; 97167; 99285; Q9967

== ENCOUNTER 2023-05-19 20:56 | Emergency (ER) | payer MEDICARE, BC, SELFPAY ==
[2023-05-19 20:56] VITALS: BMI 43.9
[2023-05-19 21:02] VITALS: BP 108/62
--- NOTE | 2023-05-19 21:31 | ED.MUSCINJ ---
HPI-Injury
General
Chief Complaint: Fall
Source: ambulance crew and fdc records
Exam Limitations: dementia
Time Seen by Provider: 05/19/23 21:13
Nursing documentation reviewed up to this point in time: agreed with
Travel History
Have you had any contact with someone who has COVID-19?: No
Do you have any symptoms of coronavirus? Fever > 100 degrees, chills, cough, shortness of breath, sore throat, loss of taste or smell, muscle aches, or headache?: No
History of Present Illness-Injury
Is this injury a work related problem?: No
Is pt an associate of [facility]?: No
Initial Injury comments:
Patient to ED from [facility] for eval afert unwitnessed fall. Found face down on floor, awake and alert. Brought to ED via EMS for eval. Complains of pain to her right shoulder.
Past History
Past History
ED Past Medical History: COPD, GERD, HTN, Psychiatric (dementia) and Other (Cirrhosis, resp. failure, metabolic encephalopathy, ulcerative colitis, PE, thrombocytopenia, )
ED Past Surgical History: None
Social History
Tobacco: Non-smoker
Alcohol: None
Drug: None
Personal:
Living: with family
Review of Systems
Review of Systems
Constitutional: Reports no symptoms
EENT: Reports no symptoms
Respiratory: Reports no symptoms
Cardiac: Reports no symptoms
ABD/GI: Reports no symptoms
: Reports no symptoms
Musculoskeletal: Reports joint pain (Complains of pain to her right shoulder)
Skin: Reports no symptoms
Neurological: Reports no symptoms
Psychiatric: Reports no symptoms
Musculoskeletal Injury Exam
Musculoskeletal Injury Exam
Right Shoulder:
Pain with Movement?: Moderate
Tender to palpation?: Moderate
Soft tissue swelling?: None
External deformity and angulation?: None
Joint effusion?: None
Contusion?: Moderate
Hematoma-local bleeding into tissue?: None
Strain- Sprain- Tear (Connective tissue injury)?: None
Crepitus with movement?: No
Joint instability?: No
Malalignment/deformity?: No
Range of motion: Limited
Distal skin color and temperature: normal-warm & good color
Capillary Refill: normal
Normal distal neurovascular exam?: Yes
Peripheral Pulses: radial (right): 3+
Phy Exam
General Physical Exam
General Presentation: well appearing and no apparent distress
General age: appears stated age
General Skin: warm and dry
General Mental: alert
Cardiovascular Exam
Cardiovascular Exam: regular rate/rhythm
Pulmonary Exam
Pulmonary Exam: no respiratory distress and chest non tender
Neurological Exam
Neurological Exam: alert, CN II-XII intact, no motor deficits, no sensory deficits and speech normal
Musculoskeletal Exam
Musculoskeletal Exam: neuro vasc intact
Skin Exam
Skin Exam: normal color, warm/dry and no rash
Psychiatric Exam
Psychiatric Exam: normal mood/affect
Injury Course
Orders/Labs/Results
Orders:
Orders
05/19/23 21:30
CT Head W/o Iv Contrast Urgent
Comment:
Reason For Exam: fall
Cervical Spine wo Contrast CT [CT Cervical Spine W/o Iv Contr] Urgent
Comment:
Reason For Exam: fall
05/19/23 22:52
Shoulder, Right, Trauma [CR Shoulder, Trauma - Right] Urgent
Comment:
Reason For Exam: fall
*Radiology
Radiology exam reviewed: radiology read reviewed
*Pulse Oximetry
Patient hypoxic: no
*Critical Care Note
Total Time (30-74mins, 75-104mins- exclusive of procedures): Not Applicable
ED Attending Note
-
Portions of this chart may have been created with voice recognition software.� Occasional wrong word or��sound alike� substitutions may have occurred due to the inherent limitations of voice recognition software.
Discharge Plan
Departure
Patient Disposition: Usp/SNF
Date of Disposition: 05/19/23
Time of Disposition: 23:06
Patient with high blood pressure during this ER visit?: No
Condition: Good
Covid-19: Not Applicable
Discharge Problem:
Head injury
Instructions: Head Injury in Adults (DC), Contusion (DC), Preventing falls in adults
Prescriptions:
No Action
metoprolol succinate 50 MG tablet extended release 24 hr
50 mg PO DAILY
mesalamine [Lialda] 1.2 GM tablet,delayed release (DR/EC)
2.4 g PO DAILY
furosemide 40 mg Tablet
40 mg PO DAILY
acetaminophen 325 mg Tablet
650 mg PO Q6H PRN (Reason: mild pain/temp>100)
ipratropium-albuterol 0.5 mg-3 mg(2.5 mg base)/3 mL Solution For Nebulization
3 ml INHALATION R BID
olanzapine [Zyprexa] 5 mg Tablet
5 mg PO HS
Triad Wound Dressing Paste
1 applic TOPICAL BID
Rx Instructions:
apply to inner buttocks
triamcinolone acetonide 0.1 % cream
1 applic TOPICAL BID
Rx Instructions:
apply to b/l LE for skin irritation
magnesium hydroxide [Milk of Magnesia] 400 mg/5 mL Suspension
30 ml PO HSPRN PRN (Reason: if no bm x 3 days)
bisacodyl [Dulcolax (bisacodyl)] 10 mg Suppository
10 mg IN DAILY PRN (Reason: if no results for MOM)
nystatin 100,000 unit/gram Powder
1 applic TOPICAL DAILY
aripiprazole [Abilify] 10 mg Tablet
10 mg PO DAILY
melatonin 5 mg Tablet
5 mg PO HS
Myrbetriq 50 mg tablet extended release 24 hr
50 mg PO DAILY
acetaminophen [Tylenol] 325 mg Tablet
650 mg PO Q4HPRN PRN (Reason: fever)
Referrals:
Arsenio Hancock MD [Family Provider] - Tomorrow
Interventions
Interventions:
*Risk Screen - Suicide Last Done: 05/19/23 21:02
*General Assessment Last Done: 05/19/23 21:02
*Neglect/Abuse Screening Last Done: 05/19/23 21:02
ED- Fall Risk Assessment Last Done: 05/19/23 21:02
*ED COVID-19 Vaccine History Last Done: 05/19/23 21:02
*Nursing Disposition Last Done: 05/20/23 01:21
ED-Musculoskeletal Assessment Last Done: 05/19/23 21:36
ED- Neurological Assessment Last Done: 05/19/23 21:36
ED-Skin Assessment Last Done: 05/19/23 21:36
Discharge Date and Time
Discharge Date/Time: 05/20/23 01:23
[2023-05-19 22:00] VITALS: BP 105/66
[2023-05-20 00:10] VITALS: BP 112/58
[2023-05-20 00:22] VITALS: BP 126/73
[2023-05-20 00:38] VITALS: BP 113/63
== END 2023-05-20 01:23 ==
LOC: EMR 20:56
PROVIDERS: EMERGENCY PHYSICIAN Emergency Medicine; FAMILY PHYSICIAN Internal Medicine
DX: S09.90XA Unspecified injury of head, initial encounter (principal); W19.XXXA Unspecified fall, initial encounter
CPT/HCPCS: 99284; 70450; 72125; 73030

== ENCOUNTER 2023-07-07 22:29 | Inpatient (IN) | payer MEDICARE, BC, SELFPAY ==
[2023-07-07] VITALS (9 sets, daily range): BP systolic 101–141; BP diastolic 53–92
[2023-07-07] MEDS: DUONEB 3 ML INH (17:40)
[2023-07-07 17:54] LABS: % Basophils 0.8 % (0-2); % Eosinophils 5.3 % (0-6); % Immature Granulocytes 0.3 % (0-0.5); % Lymphocytes 19.9 % (20.5-51.1); % Monocytes 9.6 % (1.7-9.3); % Neutrophils 64.1 % (42.2-75.2); Absolute Basophils 0.1 10^3/uL (0-0.2); Absolute Eosinophils 0.4 10^3/uL (0-0.7); Absolute Lymphocytes 1.4 10^3/uL (1.2-3.4); Absolute Monocytes 0.7 10^3/uL (0.1-0.6); Absolute Neutrophils 4.6 10^3/uL (1.4-6.5); Hematocrit 42.5 % (37.0-47.0); Hemoglobin 13.6 g/dL (12.0-16.0); Mean Corpuscular Hgb 29.1 pg (27.0-31.0); Mean Corpuscular Volume 90.8 fL (81.0-99.0); Mean Platelet Volume 9.1 fL (7.4-10.4); Nucleated Red Blood Cells % 0 %; Platelet Count 291 10^3/uL (130-400); Red Blood Cell Count 4.68 10^6/uL (4.20-5.40); Red Cell Dist. Width 18.3 % (11.5-14.5); White Blood Cell Count 7.2 10^3/uL (4.8-10.8)
[2023-07-07 18:04] LABS: Lactic Acid 0.7 mmol/L (0.7-2.0)
--- NOTE | 2023-07-07 18:18 | PHANOTE ---
Med Rec Note:
Called [facility] at 1700 for pt's medication list. Spoke with the nursing coin machine supervisor, to fax over med list. Nursing Banquet Coordinator called back, asking if fax was received, no fax, nursing coin machine supervisor to try faxing list over again.
No medication list received at this time, medication list compiled from DH discharge on 05/06/23, Dr Harrison and ECW note from 05/26/23.
Will update medication list when fax is received.
[2023-07-07 19:08] LABS: COVID-19 Antigen Negative (Negative)
[2023-07-07 19:10] LABS: ALT (SGPT) 42 U/L (0-35); AST (SGOT) 47 U/L (14-36); Albumin 3.6 g/dl (3.5-5.0); Alkaline Phosphatase 125 U/L (38-126); Blood Urea Nitrogen 34 mg/dl (7-17); Calcium 10.4 mg/dl (8.4-10.2); Carbon Dioxide 33 mmol/L (22-30); Chloride 100 mmol/L (98-107); Glucose 105 mg/dl (70-99); Potassium 4.5 mmol/L (3.5-5.1); Sodium 137 mmol/L (135-145); Total Bilirubin 0.6 mg/dl (0.2-1.3); Total Protein 7.7 g/dl (6.3-8.2); eGFR 50.48
--- NOTE | 2023-07-07 19:25 | ED.GENMED ---
History of Present Illness
General
Chief Complaint: Change in Mental Status
Source: patient and spouse
Exam Limitations: none
Time Seen by Provider: 07/07/23 16:58
Nursing documentation reviewed up to this point in time: agreed with
Travel History
Have you had any contact with someone who has COVID-19?: No
Do you have any symptoms of coronavirus? Fever > 100 degrees, chills, cough, shortness of breath, sore throat, loss of taste or smell, muscle aches, or headache?: No
History of Present Illness
History of Present Illness:
[facility] being [facility] on floor by staff. Unknown how fall occurred or what time this AM it occurred. Patient denies any injuries but reports SOB and cough. States her spouse recently had similar symptoms. No reports
of fever or chills. Pulse ox 93%RA on arrival. AUdible wheezing.
Past History
Past History
ED Past Medical History: COPD, GERD, HTN, Psychiatric (dementia) and Other (Cirrhosis, resp. failure, metabolic encephalopathy, ulcerative colitis, PE, thrombocytopenia, )
ED Past Surgical History: None
Social History
Tobacco: Non-smoker
Alcohol: None
Drug: None
Personal:
Living: with family
Review of Systems
Review of Systems
Allergies reviewed?: Yes
Other source history: family and ambulance crew
All Other Systems: ROS reviewed and negative except as documented in HPI and ROS
Constitutional: Reports fatigue
EENT: Reports no symptoms
Respiratory: Reports cough and trouble breathing
Cardiac: Reports no symptoms
ABD/GI: Reports no symptoms
: Reports no symptoms
Musculoskeletal: Reports edema (edema)
Skin: Reports other (sacral decub)
Neurological: Reports weakness
Psychiatric: Reports no symptoms
Phy Exam
General Physical Exam
General Presentation: mild distress
General age: appears stated age
General Skin: warm and dry
General Habitus: normal
General Mental: alert
Cardiovascular Exam
Cardiovascular Exam: regular rate/rhythm
Pulmonary Exam
Pulmonary Exam: chest non tender
Oxygen Status: room air
Cough: non productive cough
Breath Sounds: Wheeze: generalized
Gastrointestinal Exam
Gastrointestinal Exam: normal bowel sounds, non tender, soft, no organomegaly, non distended and no cva tenderness
Musculoskeletal Exam
Musculoskeletal Exam: full ROM, edema (+2BLE edema) and neuro vasc intact
Skin Exam
Skin Exam: normal color, warm/dry and no rash
Psychiatric Exam
Psychiatric Exam: normal mood/affect
Course
Orders/Labs/Results
Orders:
Orders
07/07/23 17:34
Ipratropium/Albuterol Sulfate [Duoneb] 3 ml INH R NOW STA
CR Chest - 2 Views Urgent
Comment:
Reason For Exam: wheezing, cough
07/07/23 17:35
CT Head W/o Iv Contrast Urgent
Comment:
Reason For Exam: unwitnessed fall
07/07/23 17:40
Complete Blood Count/With Diff Urgent
Lactic Acid Urgent
07/07/23 18:41
COVID-19 Antigen Urgent
Source: Nasal Swab
Comprehensive Metabolic Panel Urgent
NT-proBNP Urgent
Comment: ADD ON
Influenza A+B Rapid Molecular Urgent
KIP Source: Nasal Swab
Specimen Description:
07/07/23 19:25
Add On- LAB Urgent
Tests Added?: BNP
07/07/23 20:18
Furosemide [Lasix] 60 mg IV NOW STA
07/07/23 20:20
Urinalysis Reflex To Culture Urgent
Date Specimen was Collected: 07/07/23
Time Specimen was Collected: 20:17
Urine Microscopic Reflex Cult Urgent
Urine Culture Urgent
KIP Source: U
Specimen Description:
Date Specimen was Collected: 07/07/23
Time Specimen was Collected: 20:17
07/07/23 20:35
Aztreonam [Azactam] 2,000 mg IV NOW STA
07/07/23 20:53
Admit/Transfer Patient As Directed
Co-Sign Provider:
Level of Care: Inpatient admission
Assign to:: Telemetry
Physician / Group: calista quintanilla
Diagnosis: UTi
Reason for Telemetry: Subacute Heart Failure
Date to Stop Telemetry: 07/09/23
Time to Stop Telemetry: 11:00
Reason for Hospitalization: UTI
Expected length of stay greater than two midnights?: Yes
ELOS- Estimated Length of Stay in days: 3
I certify the patient meets the requirements for IP care: Yes
Code Status As Directed
Resuscitation Status: Full Code
07/07/23 21:07
EKG [Electrocardiogram (*1)] Stat
Reason for Study: QTc Monitoring
07/09/23 11:00
DC Protocol for Telemetry ONCE
Abnormal Lab Results
07/07/23 07/07/23 07/07/23
17:40 18:41 20:20
MCHC 32.0 L g/dL
(33.0-37.0)
RDW 18.3 H %
(11.5-14.5)
Absolute Monos (auto) 0.7 H 10^3/uL
(0.1-0.6)
Lymphocytes % 19.9 L %
(20.5-51.1)
Monocytes % 9.6 H %
(1.7-9.3)
Carbon Dioxide 33 H mmol/L
(22-30)
BUN 34 H mg/dl
(7-17)
Creatinine 1.1 H mg/dL
(0.6-1.0)
Glucose 105 H mg/dl
(70-99)
Calcium 10.4 H mg/dl
(8.4-10.2)
AST 47 H U/L
(14-36)
ALT 42 H U/L
(0-35)
Urine Nitrite (Reflex) Positive A
(Negative)
Leukocyte Esterase Rfl 2+ A
(Negative)
Urine WBC (Reflex) 60-70 A /HPF
(0-5)
Urine Bacteria (Reflex) Many A
(Negative)
07/07/23 17:40
07/07/23 18:41
Vital Signs
Initial and Last Documented VS:
Initial Vital Signs
Temp Pulse Resp BP Pulse Ox
98.6 F 80 19 134/69 98
07/07/23 16:45 07/07/23 16:45 07/07/23 16:45 07/07/23 16:45 07/07/23 16:45
Last Documented Vital Signs
Temp Pulse Resp BP Pulse Ox
98.6 F 114 23 120/92 94
07/07/23 16:45 07/07/23 21:00 07/07/23 21:00 07/07/23 21:00 07/07/23 21:00
*Radiology
Radiology exam reviewed: radiology read reviewed
*Pulse Oximetry
Patient hypoxic: no
*Critical Care Note
Total Time (30-74mins, 75-104mins- exclusive of procedures): Not Applicable
ED Attending Note
-
Portions of this chart may have been created with voice recognition software.� Occasional wrong word or��sound alike� substitutions may have occurred due to the inherent limitations of voice recognition software.
Discharge Plan
Departure
Patient Disposition: Admit
Date of Disposition: 07/07/23
Time of Disposition: 20:24
Presentation/result/management discussed w/ accepting MD/DO: Hospitalist
Patient with high blood pressure during this ER visit?: Yes
Condition: Fair
Covid-19: Not Applicable
Discharge Problem:
Pulmonary edema, Acute UTI
Prescriptions:
No Action
metoprolol succinate 50 MG tablet extended release 24 hr
50 mg PO DAILY
mesalamine [Lialda] 1.2 GM tablet,delayed release (DR/EC)
2.4 g PO DAILY
furosemide 40 mg Tablet
40 mg PO DAILY
acetaminophen 325 mg Tablet
650 mg PO Q6H PRN (Reason: mild pain/temp>100)
ipratropium-albuterol 0.5 mg-3 mg(2.5 mg base)/3 mL Solution For Nebulization
3 ml INHALATION R BID
olanzapine [Zyprexa] 5 mg Tablet
5 mg PO HS
Triad Wound Dressing Paste
1 applic TOPICAL BID
Rx Instructions:
apply to inner buttocks
triamcinolone acetonide 0.1 % cream
1 applic TOPICAL BID
Rx Instructions:
apply to b/l LE for skin irritation
magnesium hydroxide [Milk of Magnesia] 400 mg/5 mL Suspension
30 ml PO HSPRN PRN (Reason: if no bm x 3 days)
bisacodyl [Dulcolax (bisacodyl)] 10 mg Suppository
10 mg VT DAILY PRN (Reason: if no results for MOM)
nystatin 100,000 unit/gram Powder
1 applic TOPICAL DAILY
aripiprazole [Abilify] 10 mg Tablet
5 mg PO DAILY
melatonin 5 mg Tablet
5 mg PO HS
Myrbetriq 50 mg tablet extended release 24 hr
50 mg PO DAILY
acetaminophen [Tylenol] 325 mg Tablet
650 mg PO Q4HPRN PRN (Reason: fever)
diltiazem HCl 240 mg capsule,extended release 24hr
240 mg PO DAILY
alprazolam 0.25 mg tablet
0.25 mg PO DAILY PRN (Reason: anxiety)
Patient Comments:
07/07/2023: last filled 07/04/23, 14 tabs for 14 days from [facility]
losartan 100 mg tablet
100 mg PO DAILY
apixaban 5 mg Tablet
5 mg PO BID
Referrals:
UNKNOWN - PT DOES,NOT KNOW [Family Provider] -
Interventions
Interventions:
*Risk Screen - Suicide Last Done: 07/07/23 16:45
*General Assessment Last Done: 07/07/23 16:45
*Neglect/Abuse Screening Last Done: 07/07/23 16:45
ED- Fall Risk Assessment Last Done: 07/07/23 16:53
*ED COVID-19 Vaccine History Last Done: 07/07/23 16:45
ED- Pulmonary Assessment Last Done: 07/07/23 16:53
ED- Neurological Assessment Last Done: 07/07/23 16:53
ED- Cardiac Assessment Last Done: 07/07/23 16:53
Discharge Date and Time
Print Language: KINYARWANDA
[2023-07-07 20:21] LABS: NT-proBNP 1850 pg/ml
[2023-07-07 20:27] LABS: Urine Albumin Negative (Neg - Trace); Urine Bilirubin Negative (Negative); Urine Character Clear (Clear); Urine Color Yellow; Urine Glucose Negative (Negative); Urine Ketone Negative (Negative); Urine Leukocyte 2+ (Negative); Urine Nitrite Positive (Negative); Urine Occult Blood Negative (Negative); Urine Specific Gravity 1.015 (<1.030); Urine Urobilinogen Negative (Neg - 1+)
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
[2023-07-07 20:32] LABS: Urine Bacteria Many (Negative); Urine Red Blood Cell None Seen /HPF (0-2); Urine Squamous Cell 0-2 /LPF (Few); Urine White Cell 60-70 /HPF (0-5)
[2023-07-07] MEDS: LASIX 60 MG IV (20:36)
[2023-07-07] MEDS: AZACTAM 2000 MG IV (20:47)
--- NOTE | 2023-07-07 21:23 | W.PN.UPDATE ---
Update Note
Progress Note Update
This note serves as an addendum to the H&P by prime minister NIKITA Stella ZAIDI on 07/07/23
HPI
82F HX Dementia Red of Marilin Erickson seen at ER pr [facility] and found on the floor
Per chart review and speaking with the ER staff.
- Found on the floor sitting - unwitnessed, uncertain duration
- No reported head strike
- reports SOB and cough.
- Spouse recently had similar symptoms.
ROS:
No reports of fever or chills.
VSS: Pulse ox 93%RA on arrival with wheezing.
PHX:
COPD, GERD, HTN, Psychiatric (dementia) and Other (Cirrhosis, resp. failure, metabolic encephalopathy, ulcerative colitis, PE, thrombocytopenia, )
Reviewed VS: Afebrile Not tachycardic BP 110/58 POx 95% on RA
PE
Gen: not toxic, comfortable but confused
HEENT: anicteric , atraumatic head
Neck: supple , no Cx spine tenderness
Lungs: symmetric AE, crakles at bases , no whheze , no ronchi
Cor: RR S1 S2
Abdomen: soft benign exam
CATHETER BUILDER: confused , answered questions , symmetric movements in all limbs
MS: chr lymphedema bot legs
Psych: calm
Data
unremarkable CBC
CO2 33
BUN 34
Cr 1.1 bl Cr 0.6
eGFR 50 bl > 60
NEG LA
AST 47
ALT 42
proBNP 1849 - bl 1989
Abn UA
NEG Covid
CXR
1. Moderate acute interstitial and alveolar cardiogenic pulmonary edema.
2. Mild subpleural opacity in the lower lungs which is likely subsegmental atelectasis and scarring. If there are signs/symptoms of pulmonary infection, left lower lobe pneumonia is a alternative diagnostic possibility.
3. Moderate cardiomegaly.
4. Mildly to moderately decreased bilateral lung volumes.
HCT
1. No CT evidence for acute intracranial hemorrhage or transcortical infarct.
2. Severe white matter leukoaraiosis in the frontal and parietal lobes which appears unchanged.
3. Moderate diffuse dilatation of the ventricular system which appears unchanged and out of proportion to the degree of volume loss in the brain. Diagnostic possibilities are (1) normal pressure communicating hydrocephalus or (2) ex vacuo
ventricular dilatation.
4. 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
Last hospitalist admission: 05/04/23 - 05/06/23
Acute on chronic hypercapnic respiratory failure
Acute hypercapnic encephalopathy
Hypotension
History of hypertension
Drug-induced thrombocytopenia
History of bilateral pulmonary embolism in February 2023
Stage III sacral decubitus ulcer
Abnormal urinalysis
Myocardial infarction troponin elevation
Chronic lymphedema
Senile dementia
Obesity due to excess calories
ASSESSMENT & PLAN
Abnormal UA with h > 100 WBC + POS nitrites + POS LE
- Would Tx with IV LVQ
- Monitor QTc
- f/u UCx
AMS suspect TME due to UTI +/_ acute pul edema
Associated with unwitnessed fall: No apparent injury
HX Keflex allergy ? Low platelet
- NEG HCT
- UCx sent
- IV LVQ in place of aztreonam
- Observe MS
- fall precaution
- PT/OT
CXR suggestive of acute pul edema : IV lasix 40 at ER
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
HX Chronic Lymphedema
Stable and elevated pro BNP
- Ome more dose of IV lasix 40 in AM
- ECHO in AM - No prior ECHO in [facility]
- CBC card consult
JULIUS DDX: Cardiorenal syndrome vs hypovolemia
Relatively hypotensive
[place] Hypertension
- IV Diuresis and trend Cr
- No longer on Losartan as last DC meds list
Marginally elevated LFTs suspect AILI due to hypotension
- Trend LFts
Bilateral PuE HX
- Diagnosed in 02/2023 at an outside institution.
- Eliquis has been on hold during last admission for low platelets
Chronic Lymphedema
RLE Ulcers / Excoriations
- Stable. Does not appear acutely infected.
- Local care.
HX Dementia
- Hold all sedating meds, etc for now pending clinical improvement.
DVT Px: SQH
Code: full
IP TLM
[2023-07-08] VITALS (12 sets, daily range): BP systolic 102–138; BP diastolic 50–74; PULSE 77; O2SAT 95
[2023-07-08] MEDS: ZYPREXA PO (01:30)
[2023-07-08 05:53] LABS: Hematocrit 38.2 % (37.0-47.0); Hemoglobin 12.5 g/dL (12.0-16.0); Mean Corp Hgb Conc. 32.7 g/dL (33.0-37.0); Mean Corpuscular Hgb 29.1 pg (27.0-31.0); Mean Platelet Volume 8.8 fL (7.4-10.4); Platelet Count 232 10^3/uL (130-400); Red Blood Cell Count 4.29 10^6/uL (4.20-5.40); Red Cell Dist. Width 18.1 % (11.5-14.5); White Blood Cell Count 5.5 10^3/uL (4.8-10.8)
[2023-07-08 06:25] LABS: ALT (SGPT) 37 U/L (0-35); AST (SGOT) 39 U/L (14-36); Albumin 3.2 g/dl (3.5-5.0); Alkaline Phosphatase 108 U/L (38-126); Blood Urea Nitrogen 30 mg/dl (7-17); Calcium 10.1 mg/dl (8.4-10.2); Carbon Dioxide 29 mmol/L (22-30); Chloride 102 mmol/L (98-107); Direct Bilirubin 0.4 mg/dl (0.0-0.4); Estimated Creatinine Clearance 60 ml/min; Glucose 93 mg/dl (70-99); HDL Cholesterol 39 mg/dl; LDL Cholesterol, Calculated 103 mg/dl; Magnesium 1.9 mg/dl (1.6-2.3); Potassium 3.9 mmol/L (3.5-5.1); Sodium 136 mmol/L (135-145); Total Bilirubin 0.6 mg/dl (0.2-1.3); Total Cholesterol 163 mg/dl (50-199); Triglyceride 108 mg/dl (10-149); Very Low Density Lipoprotein 21 mg/dl (0-30); eGFR > 60.00
[2023-07-08 07:17] LABS: TSH Reflex To Free T4 8.06 uIU/ml (0.47-4.68)
--- NOTE | 2023-07-08 08:09 | W.PN.HOSP.TC ---
Today's Communication/Plan
-
AWAITING MED REC
-PT/OT/ST
-Levaquin
-IV lasix
-TTE
-cards consult
Assessment / Plan
Assessment / Plan
Ms. Tran Chaney is a 82 yo woman with hx Dementia, resident of [facility], COPD, GERD, HTN, bilateral PE diagnosed 03/15, drug-induced thrombocytopenia from Keflex (admission 05/17), ulcerative colitis, chronic lymphedema, presents to the ER
after found down confused.
CXR
1. Moderate acute interstitial and alveolar cardiogenic pulmonary edema.
2. Mild subpleural opacity in the lower lungs which is likely subsegmental atelectasis and scarring. If there are signs/symptoms of pulmonary infection, left lower lobe pneumonia is a alternative diagnostic possibility.
3. Moderate cardiomegaly.
4. Mildly to moderately decreased bilateral lung volumes.
HCT
1. No CT evidence for acute intracranial hemorrhage or transcortical infarct.
2. Severe white matter leukoaraiosis in the frontal and parietal lobes which appears unchanged.
3. Moderate diffuse dilatation of the ventricular system which appears unchanged and out of proportion to the degree of volume loss in the brain. Diagnostic possibilities are (1) normal pressure communicating hydrocephalus or (2) ex vacuo
ventricular dilatation.
4. 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
ASSESSMENT & PLAN
TME 2/2 UTI
- continue IV Levaquin given severe reaction to Keflex
- Monitor QTc
- f/u UCx
AMS suspect TME due to UTI +/_ acute pul edema
Associated with unwitnessed fall: No apparent injury
HX Keflex allergy ? Low platelet
- NEG HCT
- treatment UTI as above
- Observe MS
- fall precaution
- PT/OT/ST
CXR suggestive of acute pul edema : IV lasix 40 at ER
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
HX Chronic Lymphedema
Stable and elevated pro BNP
- IV lasix 40 given this AM
-patient is on lasix 40mg PO QD at home? (confirming med rec)
- ECHO in AM - No prior ECHO in [facility]
- CBC card consult
JULIUS
-improved with diuresis
-continue to trend
- No longer on Losartan as last DC meds list
Marginally elevated LFTs suspect AILI due to hypotension
- Trend LFts
Bilateral PuE HX
- Diagnosed in 02/2023 at an outside institution.
- *awaiting med rec to confirm patient is back on Eliquis (will hold hep subQ)
Chronic Lymphedema
RLE Ulcers / Excoriations
- Stable. Does not appear acutely infected.
- Local care.
HX Dementia
- Hold all sedating meds, etc for now pending clinical improvement.
DVT Px: SQH - awaiting final med rec
Code: full
IP TLM
Anticipated Discharge: 24 - 48 hours
Subjective/Interval History
-
Date of Service: July 08, 2023
patient arousable but not able to fully answer questions
Objective Data
-
Labs:
Laboratory Results
07/08/23
05:45
WBC 5.5
Hgb 12.5
Hct 38.2
Plt Count 232 D
Sodium 136
Potassium 3.9
Chloride 102
Carbon Dioxide 29
BUN 30 H
Creatinine 0.8
Glucose 93
Calcium 10.1
Total Bilirubin 0.6
AST 39 H
ALT 37 H
Alkaline Phosphatase 108
Vital Signs:
Vital Signs
Temp Pulse Resp BP Pulse Ox
98.6 F 74 24 138/68 97
07/07/23 16:45 07/08/23 06:00 07/08/23 06:00 07/08/23 06:00 07/08/23 06:00
I&O
07/07/23 07/08/23 07/09/23
06:59 06:59 06:59
Output Total 1100 / 1100
Balance -1100 / -1100
Review of Systems
-
Unable to obtain full review of systems at this time due to: Other
History Source: Patient
Physical Exam
-
General: No Apparent Distress and Appears Chronically Ill
HEENT: Normocephalic, Atraumatic, Nose Appears Normal and Ears Appear Normal
Respiratory: Clear to Auscultation and Non Labored Respirations; Negative Accessory Resp Muscle Use
Cardiac: Regular Rhythm, S1/S2 and JVD
GI: Soft
Skin: Warm, Dry and Rash (BL LE chronic venous dermatosis)
Neuro: Sedated
Psych: Calm and Apparent Dementia
Data Reviewed
-
Diagnostic Radiology: Report Reviewed by me
Labs: Labs Reviewed by me
[2023-07-08] MEDS: LEVAQUIN 100 IV (09:51)
--- NOTE | 2023-07-08 11:19 | PTOTSP ---
Dysphagia Evaluation
Patient is at an acute elevated risk for dysphagia at this time given UTI and current respiratory state (i.e., 2 LPM, wheezing, acute pulmonary edema) and has chronic risk factors for dysphagia (i.e., dementia, COPD, GERD). However, oral and
pharyngeal stages of swallowing were felt to be WFL to continue a regular, thin liquid diet at this time with no significant signs concerning for aspiration observed.
Recommend:
1. Regular, Thin Liquids
2. General aspiration and reflux precautions
3. Medications as best tolerated
4. No further dysphagia therapy warranted at the acute care level. Please reconsult as appropriate. If concerned for component of aspiration, consider swallow study.
[2023-07-08] MEDS: KCL 160 MEQ IV (11:44)
[2023-07-08] MEDS: TOPROL XL 50 MG PO (11:47)
[2023-07-08] MEDS: MYRBETRIQ EXTENDED RELEASE 50 MG PO (11:48)
[2023-07-08] MEDS: ABILIFY 5 MG PO (11:48)
[2023-07-08] MEDS: LASIX 40 MG IV (12:00)
--- NOTE | 2023-07-08 12:54 | W.PN.UPDATE ---
Addendum entered and electronically signed by Lucy Zavala MD 07/08/23 12:57:
daughter states patient is mainly wheelchair bound
Original Note:
Update Note
Progress Note Update
daughter stating patient should be back on her blood thinner for PE
-will resume eliquis
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
[2023-07-08] MEDS: DUONEB 3 ML INH ×3 (13:20→20:42)
--- NOTE | 2023-07-08 14:26 | PTCARENOTE ---
1410 Pt received from ED via stretcher. Pt AAOX1. Pt reoriented to place, and time.
--- NOTE | 2023-07-08 16:04 | WOUNDNOTE ---
PHILIP RN NOTE: Attempted to see patient in ER was transferred to [facility]. Patient known to service for buttock sacral wound and intact dry blisters on R foot/heel. Recommended to nurse Kayelena to use silicone foams for wounds on sacrum and to consider if
patient may need air mattress or air overlay depending on mobility. Will follow tomorrow.
[2023-07-08] MEDS: ASACOL, DELZICOL DR 800 MG PO ×2 (16:19→22:39)
[2023-07-08] MEDS: ARISTOCORT/TRIAMCINOLONE 0.1% CREAM 1 APPLIC TOPICAL (20:11)
[2023-07-08] MEDS: ELIQUIS 5 MG PO (20:11)
--- NOTE | 2023-07-08 20:23 | W.PN.UPDATE ---
Update Note
Progress Note Update
Called to the patient`s room as the patient` daughter brought the living will with DNR. Currently the patient is full code in the chart. Spoke to the patient while the daughter in the room. Explained the different between full code and DNR, after
discussion with both patient and the daughter, the patient decided to stay full code while she in the hospital.
--- NOTE | 2023-07-08 22:18 | PTCARENOTE ---
Received paperwork from pt's daughter, Shruthi, regarding POA and pt's code status. Paperwork states pt is a DNR. ZEN Royal notified, on floor to speak with pt and pt's daughter, pt states that she 'wants everything done.' Pt remains full code
status, paperwork placed in paper chart.
[2023-07-08] MEDS: ZYPREXA 5 MG PO (22:39)
[2023-07-08] MEDS: MELATONIN 5 MG PO (22:39)
[2023-07-09 03:25] VITALS: BP 135/64
--- NOTE | 2023-07-09 04:47 | DOWNTIME ---
There was a [employer] Downtime on 07/09/2023 from 0100 to 07/09/2023 at 0439. Downtime documentation of patient's care, including medication administrations, has been reconciled in the electronic record per guidelines. Refer to the
patient's paper chart under the miscellaneous tab to see printed paper medication records and downtime forms.
[2023-07-09 06:00] VITALS: BMI 40.1
[2023-07-09 06:02] LABS: Hematocrit 44.5 % (37.0-47.0); Hemoglobin 13.6 g/dL (12.0-16.0); Mean Corp Hgb Conc. 30.6 g/dL (33.0-37.0); Mean Corpuscular Hgb 28.3 pg (27.0-31.0); Mean Corpuscular Volume 92.7 fL (81.0-99.0); Mean Platelet Volume 9.1 fL (7.4-10.4); Platelet Count 262 10^3/uL (130-400); Red Cell Dist. Width 17.8 % (11.5-14.5); White Blood Cell Count 7.4 10^3/uL (4.8-10.8)
[2023-07-09 06:33] LABS: Blood Urea Nitrogen 28 mg/dl (7-17); Calcium 10.5 mg/dl (8.4-10.2); Carbon Dioxide 32 mmol/L (22-30); Chloride 102 mmol/L (98-107); Estimated Creatinine Clearance 64 ml/min; Glucose 93 mg/dl (70-99); Potassium 4.7 mmol/L (3.5-5.1); Sodium 137 mmol/L (135-145); eGFR > 60.00
[2023-07-09] MEDS: DUONEB 3 ML INH ×4 (07:27→20:16)
[2023-07-09] MEDS: LEVAQUIN 100 IV (07:41)
[2023-07-09] MEDS: LASIX 40 MG IV (07:45)
[2023-07-09] MEDS: ASACOL, DELZICOL DR 800 MG PO ×3 (07:45→22:40)
[2023-07-09] MEDS: ELIQUIS 5 MG PO ×2 (07:45→22:39)
[2023-07-09] MEDS: ABILIFY 5 MG PO (07:45)
[2023-07-09] MEDS: MYRBETRIQ EXTENDED RELEASE 50 MG PO (07:45)
[2023-07-09] MEDS: TOPROL XL 50 MG PO (07:45)
[2023-07-09] MEDS: ARISTOCORT/TRIAMCINOLONE 0.1% CREAM 1 APPLIC TOPICAL ×2 (07:46→22:41)
[2023-07-09 07:56] VITALS: BP 116/76
--- NOTE | 2023-07-09 07:59 | PN.CDI ---
CDI
- -
CDI:
Physician Documentation Request
Admit Date: 07/07/23 22:29
Dear Doctor Sally,
Please review the following and provide your response in the progress notes.
Clinical Indicators:
07/07, stage 2 pressure injury gluteal cleft, POA, nurse documentation
07/07, stage 2 pressure injury left buttock, POA, nurse documentation
Based on the above and your clinical assessment, please document your findings:
Stage 2 pressure injury gluteal cleft, POA
and Stage 2 pressure injury left buttock, POA
Other(please specify)
Physician documentation of the type and location of wounds is required for compliant documentation.
1. Location of the ulcer/wound, including laterality.
2. Type (etiology) of ulcer/wound:
- Diabetic ulcer
- Arterial (ischemic) ulcer
- Traumatic wound
- Venous stasis ulcer
- Pressure (decubitus) ulcer
3. If a pressure ulcer, please also include the stage* of the ulcer:
- Stage 1 - Skin intact, non-blanchable redness
- Stage 2 - Partial thickness loss of dermis, includes intact or open blister
- Stage 3 - Full thickness tissue not including bone, tendon or muscle
- Stage 4 - Full thickness tissue loss, including exposed bone, tendon or muscle
Use of terms such as suspected, likely, concern for, or probable (associated with a specific diagnosis that is being evaluated, monitored, or treated as if it exists) are acceptable and can be coded in the inpatient setting, when documented at the
time of discharge.
Thank you,
Jazmyne Lyons RN BSN CCDS
CDI Specialist
please contact via tiger text
Please use your independent medical judgment in providing your response.
*Source: National Pressure Ulcer Advisory Panel (NPUAP)
--- NOTE | 2023-07-09 09:00 | W.PN.HOSP.TC ---
Today's Communication/Plan
-
diuresis
levaquin
F/U urine culture
Assessment / Plan
Assessment / Plan
Ms. Tran Chaney is a 82 yo woman with hx Dementia, resident of [facility], COPD, GERD, HTN, bilateral PE diagnosed 03/15, drug-induced thrombocytopenia from Keflex (admission 05/17), ulcerative colitis, chronic lymphedema, presents to the ER
after found down confused.
CXR
1. Moderate acute interstitial and alveolar cardiogenic pulmonary edema.
2. Mild subpleural opacity in the lower lungs which is likely subsegmental atelectasis and scarring. If there are signs/symptoms of pulmonary infection, left lower lobe pneumonia is a alternative diagnostic possibility.
3. Moderate cardiomegaly.
4. Mildly to moderately decreased bilateral lung volumes.
HCT
1. No CT evidence for acute intracranial hemorrhage or transcortical infarct.
2. Severe white matter leukoaraiosis in the frontal and parietal lobes which appears unchanged.
3. Moderate diffuse dilatation of the ventricular system which appears unchanged and out of proportion to the degree of volume loss in the brain. Diagnostic possibilities are (1) normal pressure communicating hydrocephalus or (2) ex vacuo
ventricular dilatation.
4. 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
TTE
CONCLUSIONS
Normal global left ventricular systolic function.
Left ventricular ejection fraction is 55% by volumetric assessment.
Severely hypokinetic mid to apical septum with thinning of the apical septal
wall with a dyskinetic apex.
Mild concentric left ventricular hypertrophy.
Stage I diastolic dysfunction suggestive of abnormal relaxation.
Severe mitral annular calcification with mild functional mitral stenosis.
Aortic sclerosis.
No prior study available for comparison.
ASSESSMENT & PLAN
TME 2/2 UTI
- continue IV Levaquin given severe reaction to Keflex
- Monitor QTc
- f/u UCx
AMS suspect TME due to UTI +/_ acute pul edema
Associated with unwitnessed fall: No apparent injury
HX Keflex allergy ? Low platelet
- NEG HCT
- treatment UTI as above
- Observe MS
- fall precaution
- PT/OT/ST
HFpEF acute exacerbation
HX Chronic Lymphedema
Stable and elevated pro BNP
-TTE results above - EF 55% severely hypokinetic mid to apical setptum with thinning apical setal wall without prior at . Per cardiology review of old records patient has refused aggressive work-up in past.
- CBC card consult appreciated
-continue IV lasix
Acute COPD exacerbation
-continue home inhalers
-persistence of wheezing on exam post diuresis
-start prednisone 40 daily (with GI PPx)
JULIUS
-improved with diuresis
-continue to trend
- No longer on Losartan as last DC meds list
Marginally elevated LFTs suspect AILI due to hypotension
- Trend LFts
Bilateral PuE HX
- Diagnosed in 02/2023 at an outside institution.
-per daugther patient was to be back on Eliquis with normal PLT --> resume this Admission
Chronic Lymphedema
RLE Ulcers / Excoriations
- Stable. Does not appear acutely infected.
- Local care.
HX Dementia
- Hold all sedating meds, etc for now pending clinical improvement.
DVT Px: eliquis
Code: full
IP [facility]
Anticipated Discharge: 24 - 48 hours
Subjective/Interval History
-
Date of Service: July 09, 2023
more awake this morning
feels mildly short of breath
Objective Data
-
Labs:
Laboratory Results
07/09/23
05:23
WBC 7.4
Hgb 13.6
Hct 44.5
Plt Count 262
Sodium 137
Potassium 4.7
Chloride 102
Carbon Dioxide 32 H
BUN 28 H
Creatinine 0.7
Glucose 93
Calcium 10.5 H
Vital Signs:
Vital Signs
Temp Pulse Resp BP Pulse Ox
98.2 F 82 17 116/76 98
07/09/23 07:56 07/09/23 07:56 07/09/23 07:56 07/09/23 07:56 07/09/23 07:56
I&O
07/08/23 07/09/23 07/10/23
06:59 06:59 06:59
Intake Total 340 / 340
Output Total 1100 / 1100 1950 / 1950
Balance -1100 / -1100 -1610 / -1610
Review of Systems
-
History Source: Patient
All other systems: Reviewed and negative
Physical Exam
-
General: No Apparent Distress and Appears Chronically Ill
HEENT: Normocephalic, Atraumatic, Nose Appears Normal and Ears Appear Normal
Respiratory: Wheezes and Other (mildly tachypneic ); Negative Accessory Resp Muscle Use
Cardiac: Regular Rhythm, S1/S2 and JVD
GI: Soft
Skin: Warm, Dry and Rash (BL LE chronic venous dermatosis)
Neuro: Sedated
Psych: Calm and Apparent Dementia
Data Reviewed
-
Diagnostic Radiology: Report Reviewed by me
Labs: Labs Reviewed by me
[2023-07-09] MEDS: PROTONIX 40 MG PO (09:49)
[2023-07-09] MEDS: DELTASONE 40 MG PO (09:49)
[2023-07-09 10:50] VITALS: BMI 40.0
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
[2023-07-09 11:19] VITALS: BP 122/66
--- NOTE | 2023-07-09 11:25 | WOUNDNOTE ---
WON RN note: Patient admitted with acute UTI and pulmonary edema. Patient admitted from [facility].
See H&P for complete history.
PMH: LE lymphedema (on po Keflex), dementia, PE, biliary cirrhosis, ulcerative colitis, diverticulitis, obesity.
Wound Location and type/assessment: Patient known to service, seen on 05/05/23 for stage 3 PI on buttocks/gluteal cleft and dried blood blisters on legs and feet. Since then legs/feet much improved, lymphedema chronic, heels intact. Healing stage 3
pressure injury on gluteal cleft with yellow slough and some pink tissue, much improved since last admission. Redness surrounding MASD.
Appetite: good.
Pressure redistribution devices in place: On Accumax bed, patient cannot turn self in bed, recommend air overlay or change bed to [facility] air bed. Air chair cushion in use.
Plan: Skin prep and Exuderm thin applied to gluteal cleft with silicone foam on sacrum to protect. PCT assisted with turning, Purwick changed and brief, smeared with stool. Changed foam adhesives on heels, air cushion on pillow under calves. Will
order mineral oil for dry skin on legs and miconazole for skin folds and periwound. Will confirm with hospitalist. Notified nurse Rachael to let patient nurse Robert know of the above.
Care plan to be updated and will follow as needed.
Note to case management of equipment requested for discharge: Air mattress at SNF if not already in place.
Recommend follow up at wound care center upon discharge.
--- NOTE | 2023-07-09 15:05 | W.PN.UPDATE ---
Update Note
Progress Note Update
updated daughter this afternoon who has patient's advanced directive which states that she is a DNR. Patient has dementia and cannot make code status decision for herself. Patient's and daughter are POA and decision is made for DNR. Code
status changed in computer.
--- NOTE | 2023-07-09 15:36 | CM ---
Alert awake confused patient who is mcc at [facility]. Pt yelling she wants to go home. Redirecting pt helps.LM with . Spoke with ramesh Seigel who said pt is mcc at [facility]. LM with Jazmine regarding pt. She is assisted in all activities
of daily living.TT DR Sally chandler would like update. Pt uses wheelchair walker and oxygen 2 liter NC.Dgt to speak with MD regarding DNR.
[facility]
PCP Dr BLISS
PLAN Return to [facility] via ambulance
[2023-07-09 15:49] VITALS: BP 121/79
[2023-07-09 19:20] VITALS: BP 134/66
[2023-07-09] MEDS: MELATONIN 5 MG PO (22:39)
[2023-07-09] MEDS: ZYPREXA 5 MG PO (22:40)
[2023-07-09] MEDS: DESENEX/MITRAZOL/ZEASORB 1 APPLIC TOPICAL (22:41)
[2023-07-09 23:35] VITALS: BP 128/71
[2023-07-10 02:55] VITALS: BP 140/68
[2023-07-10 05:51] LABS: Hematocrit 42.3 % (37.0-47.0); Hemoglobin 13.4 g/dL (12.0-16.0); Mean Corp Hgb Conc. 31.7 g/dL (33.0-37.0); Mean Corpuscular Hgb 28.8 pg (27.0-31.0); Mean Corpuscular Volume 90.8 fL (81.0-99.0); Mean Platelet Volume 9.1 fL (7.4-10.4); Platelet Count 273 10^3/uL (130-400); Red Blood Cell Count 4.66 10^6/uL (4.20-5.40); Red Cell Dist. Width 17.2 % (11.5-14.5); White Blood Cell Count 8.9 10^3/uL (4.8-10.8)
[2023-07-10 06:00] VITALS: BMI 40.0
[2023-07-10 06:14] LABS: Blood Urea Nitrogen 28 mg/dl (7-17); Calcium 11.1 mg/dl (8.4-10.2); Carbon Dioxide 30 mmol/L (22-30); Chloride 96 mmol/L (98-107); Estimated Creatinine Clearance 64 ml/min; Glucose 102 mg/dl (70-99); Sodium 136 mmol/L (135-145); eGFR > 60.00
[2023-07-10] MEDS: DUONEB 3 ML INH ×4 (07:18→19:13)
[2023-07-10 07:31] VITALS: BP 134/73
[2023-07-10] MEDS: ASACOL, DELZICOL DR 800 MG PO ×3 (08:50→20:45)
[2023-07-10] MEDS: ABILIFY 5 MG PO (08:50)
[2023-07-10] MEDS: DELTASONE 40 MG PO (08:50)
[2023-07-10] MEDS: PROTONIX 40 MG PO (08:50)
[2023-07-10] MEDS: TOPROL XL 50 MG PO (08:50)
[2023-07-10] MEDS: ELIQUIS 5 MG PO ×2 (08:51→20:45)
[2023-07-10] MEDS: ARISTOCORT/TRIAMCINOLONE 0.1% CREAM 1 APPLIC TOPICAL ×2 (08:51→20:45)
[2023-07-10] MEDS: HYDROPHOR 1 APPLIC TOPICAL (09:07)
[2023-07-10] MEDS: DESENEX/MITRAZOL/ZEASORB 1 APPLIC TOPICAL ×2 (09:07→20:45)
[2023-07-10] MEDS: LEVAQUIN 100 IV (09:07)
[2023-07-10] MEDS: MYRBETRIQ EXTENDED RELEASE 50 MG PO (09:08)
[2023-07-10] MEDS: LASIX 40 MG IV (09:08)
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
--- NOTE | 2023-07-10 10:04 | W.PN.HOSP.TC ---
Addendum entered and electronically signed by Lucy Zavala MD 07/10/23 10:16:
mildly elevated calcium
-giving IV lasix
-add on vitamin D, PTH
Addendum entered and electronically signed by Lucy Zavala MD 07/10/23 10:08:
Stage 2 pressure injury gluteal cleft, POA and Stage 2 pressure injury left buttock, POA
-appreciate wound care
Original Note:
Today's Communication/Plan
-
stop further prednisone
give [employer]END[employer] PRN Xanax - may be component benzo withdrawal contributing to agitation this morning
day 3/3 abx Levaquin
Assessment / Plan
Assessment / Plan
Ms. Tran Chaney is a 82 yo woman with hx Dementia, resident of [facility], COPD, GERD, HTN, bilateral PE diagnosed 03/15, drug-induced thrombocytopenia from [facility] (admission 05/17), ulcerative colitis, chronic lymphedema, presents to the ER
after found down confused.
CXR
1. Moderate acute interstitial and alveolar cardiogenic pulmonary edema.
2. Mild subpleural opacity in the lower lungs which is likely subsegmental atelectasis and scarring. If there are signs/symptoms of pulmonary infection, left lower lobe pneumonia is a alternative diagnostic possibility.
3. Moderate cardiomegaly.
4. Mildly to moderately decreased bilateral lung volumes.
HCT
1. No CT evidence for acute intracranial hemorrhage or transcortical infarct.
2. Severe white matter leukoaraiosis in the frontal and parietal lobes which appears unchanged.
3. Moderate diffuse dilatation of the ventricular system which appears unchanged and out of proportion to the degree of volume loss in the brain. Diagnostic possibilities are (1) normal pressure communicating hydrocephalus or (2) ex vacuo
ventricular dilatation.
4. 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
TTE
CONCLUSIONS
Normal global left ventricular systolic function.
Left ventricular ejection fraction is 55% by volumetric assessment.
Severely hypokinetic mid to apical septum with thinning of the apical septal
wall with a dyskinetic apex.
Mild concentric left ventricular hypertrophy.
Stage I diastolic dysfunction suggestive of abnormal relaxation.
Severe mitral annular calcification with mild functional mitral stenosis.
Aortic sclerosis.
No prior study available for comparison.
ASSESSMENT & PLAN
TME 2/2 UTI
- continue IV Levaquin given severe reaction to Keflex
- day 3/3 of therapy
- Monitor QTc
- f/u UCx
AMS suspect TME due to UTI +/_ acute pul edema
Associated with unwitnessed fall: No apparent injury
HX Keflex allergy ? Low platelet
- NEG HCT
- treatment UTI as above
- fall precaution
- PT/OT/ST
HFpEF acute exacerbation
HX Chronic Lymphedema
Stable and elevated pro BNP
-TTE results above - EF 55% severely hypokinetic mid to apical setptum with thinning apical setal wall without prior at . Per cardiology review of old records patient has refused aggressive work-up in past.
- CBC card consult appreciated
-continue IV lasix another 24 hours
Acute COPD exacerbation
-continue home inhalers
-persistence of wheezing on exam post diuresis and prednisone initiated on 07/08. stop further prednisone as may be contributing to agitation (see below)
Anxiety/Agitation
-may be AE prednisone
-discussed with RN, will administer PRN Xanax
JULIUS
-improved with diuresis
-continue to trend
- No longer on Losartan as last DC meds list
Marginally elevated LFTs suspect AILI due to hypotension
- Trend LFts
Bilateral PuE HX
- Diagnosed in 02/2023 at an outside institution.
-per daugther patient was to be back on Eliquis with normal PLT --> resume this Admission
Chronic Lymphedema
RLE Ulcers / Excoriations
- Stable. Does not appear acutely infected.
- Local care.
HX Dementia
- Hold all sedating meds, etc for now pending clinical improvement.
DVT Px: eliquis
Code: full
IP TLM
Anticipated Discharge: 24 - 48 hours
Subjective/Interval History
-
Date of Service: July 10, 2023
she is anxious and agitated this morning
Objective Data
-
Labs:
Laboratory Results
07/10/23
05:18
WBC 8.9
Hgb 13.4
Hct 42.3
Plt Count 273
Sodium 136
Potassium 4.0
Chloride 96 L
Carbon Dioxide 30
BUN 28 H
Creatinine 0.7
Glucose 102 H
Calcium 11.1 H
Vital Signs:
Vital Signs
Temp Pulse Resp BP Pulse Ox
97.6 F 87 17 134/73 98
07/10/23 07:31 07/10/23 07:31 07/10/23 07:31 07/10/23 07:31 07/10/23 07:31
I&O
07/09/23 07/10/23 07/11/23
06:59 06:59 06:59
Intake Total 340 / 340 940 / 940
Output Total 1950 / 1950 1100 / 1100
Balance -1610 / -1610 -160 / -160
Review of Systems
-
Unable to obtain full review of systems at this time due to: Other (patient confused)
History Source: Patient
Physical Exam
-
General: Other (anxious, screaming out )
HEENT: PERRLA
Respiratory: Other (decreased wheezing)
Cardiac: Regular Rhythm and S1/S2
GI: Soft and Nontender
Neuro: Awake, Alert and Other (anxious )
Psych: Agitated
Data Reviewed
-
Diagnostic Radiology: Report Reviewed by me
Labs: Labs Reviewed by me
[2023-07-10] MEDS: ATIVAN 0.25 MG IV (10:46)
[2023-07-10] MEDS: NSS (PRESERVATIVE FREE) 0.125 ML IV (10:47)
[2023-07-10 11:57] LABS: Vitamin D, 25-OH*** 28.9 ng/mL (30-80)
[2023-07-10 12:12] VITALS: BP 128/79
[2023-07-10 16:05] VITALS: BP 162/80
--- NOTE | 2023-07-10 16:27 | CM ---
Confused patient who yells out .Redirecting pt helps
She is fpc at [facility]. 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
Jazmine at [facility] aware and will accept back.
[facility]
report [phone]
fax [phone]
PLAN Return to [facility] via ambulance
[2023-07-10] MEDS: ZYPREXA 5 MG PO (20:45)
[2023-07-10] MEDS: MELATONIN 5 MG PO (20:45)
[2023-07-10 23:30] VITALS: BP 156/94
[2023-07-11 06:00] VITALS: BMI 39.3
[2023-07-11 06:35] LABS: ALT (SGPT) 29 U/L (0-35); AST (SGOT) 25 U/L (14-36); Albumin 3.9 g/dl (3.5-5.0); Alkaline Phosphatase 97 U/L (38-126); Blood Urea Nitrogen 32 mg/dl (7-17); Calcium 11.2 mg/dl (8.4-10.2); Carbon Dioxide 34 mmol/L (22-30); Chloride 97 mmol/L (98-107); Estimated Creatinine Clearance 56 ml/min; Glucose 92 mg/dl (70-99); Potassium 4.3 mmol/L (3.5-5.1); Sodium 136 mmol/L (135-145); Total Bilirubin 0.4 mg/dl (0.2-1.3); Total Protein 8.3 g/dl (6.3-8.2); eGFR > 60.00
[2023-07-11 07:00] VITALS: BP 150/84
[2023-07-11] MEDS: DUONEB 3 ML INH ×3 (07:40→15:04)
[2023-07-11] MEDS: MYRBETRIQ EXTENDED RELEASE 50 MG PO (08:42)
[2023-07-11] MEDS: ASACOL, DELZICOL DR 800 MG PO ×3 (08:42→21:03)
[2023-07-11] MEDS: TOPROL XL 50 MG PO (08:42)
[2023-07-11] MEDS: ABILIFY 5 MG PO (08:43)
[2023-07-11] MEDS: ELIQUIS 5 MG PO ×2 (08:44→21:03)
[2023-07-11] MEDS: PROTONIX 40 MG PO (08:44)
[2023-07-11] MEDS: LASIX 40 MG PO (08:44)
[2023-07-11] MEDS: VITAMIN D3 (cholecalciferol) 25 MCG PO (08:44)
[2023-07-11] MEDS: ARISTOCORT/TRIAMCINOLONE 0.1% CREAM 1 APPLIC TOPICAL ×2 (08:45→21:03)
[2023-07-11] MEDS: HYDROPHOR 1 APPLIC TOPICAL (08:46)
[2023-07-11] MEDS: DESENEX/MITRAZOL/ZEASORB 1 APPLIC TOPICAL ×2 (08:46→21:03)
--- NOTE | 2023-07-11 11:04 | W.PN.HOSP.TC ---
Today's Communication/Plan
-
ID consult for ESBL in urine
Assessment / Plan
Assessment / Plan
Ms. Tran Chaney is a 82 yo woman with hx Dementia, resident of [facility], COPD, GERD, HTN, bilateral PE diagnosed 03/15, drug-induced thrombocytopenia from [facility] (admission 05/17), ulcerative colitis, chronic lymphedema, presents to the ER
after found down confused.
CXR
1. Moderate acute interstitial and alveolar cardiogenic pulmonary edema.
2. Mild subpleural opacity in the lower lungs which is likely subsegmental atelectasis and scarring. If there are signs/symptoms of pulmonary infection, left lower lobe pneumonia is a alternative diagnostic possibility.
3. Moderate cardiomegaly.
4. Mildly to moderately decreased bilateral lung volumes.
HCT
1. No CT evidence for acute intracranial hemorrhage or transcortical infarct.
2. Severe white matter leukoaraiosis in the frontal and parietal lobes which appears unchanged.
3. Moderate diffuse dilatation of the ventricular system which appears unchanged and out of proportion to the degree of volume loss in the brain. Diagnostic possibilities are (1) normal pressure communicating hydrocephalus or (2) ex vacuo
ventricular dilatation.
4. 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
TTE
CONCLUSIONS
Normal global left ventricular systolic function.
Left ventricular ejection fraction is 55% by volumetric assessment.
Severely hypokinetic mid to apical septum with thinning of the apical septal
wall with a dyskinetic apex.
Mild concentric left ventricular hypertrophy.
Stage I diastolic dysfunction suggestive of abnormal relaxation.
Severe mitral annular calcification with mild functional mitral stenosis.
Aortic sclerosis.
No prior study available for comparison.
ASSESSMENT & PLAN
TME 2/2 UTI
ESBL UTI
-unfortunately urine culture with ESBL, resistant to Levaquin
-will start Meropenem
-ID consult
AMS suspect TME due to UTI +/_ acute pul edema
Associated with unwitnessed fall: No apparent injury
HX Keflex allergy ? Low platelet
- NEG HCT
- treatment UTI as above
- fall precaution
- PT/OT/ST
HFpEF acute exacerbation
HX Chronic Lymphedema
Stable and elevated pro BNP
-TTE results above - EF 55% severely hypokinetic mid to apical setptum with thinning apical setal wall without prior at . Per cardiology review of old records patient has refused aggressive work-up in past.
- CBC card consult appreciated
- now transitioned to oral lasix
Mild Hypercalcemia
-stable ~ 11
-will give small bolus back, continue lasix
Acute COPD exacerbation
-continue home inhalers
-persistence of wheezing on exam post diuresis and prednisone initiated on 07/08. stop further prednisone as may be contributing to agitation (see below)
Dementia
Delirium
Anxiety/Agitation
-may be AE prednisone
-discussed with RN, will administer PRN Xanax
-daughter confirms this behavior is common
JULIUS
-improved with diuresis
-continue to trend
- No longer on Losartan as last DC meds list
Bilateral PuE HX
- Diagnosed in 02/2023 at an outside institution.
- per daugther patient was to be back on Eliquis with normal PLT --> resumed this Admission
Chronic Lymphedema
RLE Ulcers / Excoriations
- Stable. Does not appear acutely infected.
- Local care.
DVT Px: eliquis
Code: full
IP TLM
Anticipated Discharge: 24 - 48 hours
Subjective/Interval History
-
Date of Service: July 11, 2023
denies pain
Objective Data
-
Labs:
Laboratory Results
07/11/23
05:17
Sodium 136
Potassium 4.3
Chloride 97 L
Carbon Dioxide 34 H
BUN 32 H
Creatinine 0.8
Glucose 92
Calcium 11.2 H
Total Bilirubin 0.4
AST 25
ALT 29
Alkaline Phosphatase 97
Vital Signs:
Vital Signs
Temp Pulse Resp BP Pulse Ox
97.4 F 87 18 150/84 96
07/10/23 23:30 07/11/23 08:44 07/11/23 08:33 07/11/23 08:44 07/11/23 08:33
I&O
07/10/23 07/11/23 07/12/23
06:59 06:59 06:59
Intake Total 940 / 940 580 / 580
Output Total 1100 / 1100 900 / 900
Balance -160 / -160 -320 / -320
Review of Systems
-
History Source: Patient
All other systems: Reviewed and negative
Physical Exam
-
General: Other (anxious, screaming out )
HEENT: PERRLA
Respiratory: Other (decreased wheezing)
Cardiac: Regular Rhythm and S1/S2
GI: Soft and Nontender
Neuro: Awake, Alert and Other (anxious )
Psych: Agitated
Data Reviewed
-
Diagnostic Radiology: Report Reviewed by me
--- NOTE | 2023-07-11 11:42 | CM ---
ID consult (P).
LTC at [facility].
Jazmine/liaison for [facility] updated, they can accept over weekend if she is ready.
Plan:skilled
[facility]
report [phone]
fax [phone]
--- NOTE | 2023-07-11 11:46 | CM ---
Patient seen bedside.
D/C on hold.
ID consult (P).
Patient LTC [facility], plan is for return.
Jazmine from [facility] updated and they can accept over the weekend.
PT recommending skilled rehab.
Plan: Skilled rehab, back to [facility] when stable.
Patient will require ambulance transport.
[facility]
report [phone]
fax [phone]
[2023-07-11] MEDS: NSS 250 IV (11:56)
[2023-07-11] MEDS: STERILE WATER FOR INJECTION 10 ML IV (11:56)
[2023-07-11] MEDS: MERREM 500 MG IV (11:56)
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
[2023-07-11] MEDS: ATIVAN 0.25 MG IV ×3 (13:26→20:59)
[2023-07-11] MEDS: NSS (PRESERVATIVE FREE) 0.125 ML IV ×3 (13:28→21:00)
--- NOTE | 2023-07-11 14:45 | W.HF.CON ---
Heart Failure
- LV Function
Left ventricular function study result: LV Ejection fraction >40%
Ejection Fraction Percentage: 55
- ARNI
Patient already on ARNI: No
Heart Failure ARNI Not Indicated: LV Ejection Fraction >/= 40%
- ACEI/ARB
Patient already on ACEI/ARB: No
Heart Failure ACEI/ARB Not Indicated: LV Ejection Fraction > 40%
- Beta Bindu
Patient already on Evidence Based Beta Bindu: Yes
- Mineralocorticord Receptor Antagonist
Patient already on MRA: No
Heart Failure MRA Not Indicated: LV Ejection Fraction > 40%
- SGLT-2 Inhibitor
Patient already on SGLT-2 Inhibitor: No
Heart Failure SGLT-2 Inhibitor Not Indicated: LV Ejection Fraction >40%
- NYHA CHF Classification
NYHA CHF Classification Level: Class III - Symptoms w/ min exertion, interferes w/ nml daily activity
- ACC/AHA Stage
ACC/AHA Stage: Stage C: Symptomatic Heart Failure
--- NOTE | 2023-07-11 14:55 | W.PN.UPDATE ---
Update Note
Progress Note Update
case discussed with infectious disease, will order patient for Macrobid 100mg twice a day x 10 days.
[2023-07-11] MEDS: XANAX 0.5 MG PO (16:08)
[2023-07-11 16:59] VITALS: BP 128/58
[2023-07-11] MEDS: DUONEB INH (19:28)
[2023-07-11] MEDS: MACROBID 100 MG PO (21:02)
[2023-07-11] MEDS: MELATONIN 5 MG PO (21:08)
[2023-07-11] MEDS: ZYPREXA 5 MG PO (21:08)
[2023-07-11 23:35] VITALS: BP 145/81
[2023-07-12 06:00] VITALS: BMI 39.9
[2023-07-12 07:00] VITALS: BP 132/68
[2023-07-12] MEDS: DUONEB INH ×3 (07:58→15:17)
--- NOTE | 2023-07-12 10:01 | W.PN.HOSP.TC ---
Today's Communication/Plan
-
DC to [facility] today
Assessment / Plan
Assessment / Plan
Ms. Tran Chaney is a 82 yo woman with hx Dementia, resident of [facility], COPD, GERD, HTN, bilateral PE diagnosed 03/15, drug-induced thrombocytopenia from [facility] (admission 05/17), ulcerative colitis, chronic lymphedema, presents to the ER
after found down confused.
CXR
1. Moderate acute interstitial and alveolar cardiogenic pulmonary edema.
2. Mild subpleural opacity in the lower lungs which is likely subsegmental atelectasis and scarring. If there are signs/symptoms of pulmonary infection, left lower lobe pneumonia is a alternative diagnostic possibility.
3. Moderate cardiomegaly.
4. Mildly to moderately decreased bilateral lung volumes.
HCT
1. No CT evidence for acute intracranial hemorrhage or transcortical infarct.
2. Severe white matter leukoaraiosis in the frontal and parietal lobes which appears unchanged.
3. Moderate diffuse dilatation of the ventricular system which appears unchanged and out of proportion to the degree of volume loss in the brain. Diagnostic possibilities are (1) normal pressure communicating hydrocephalus or (2) ex vacuo
ventricular dilatation.
4. 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
TTE
CONCLUSIONS
Normal global left ventricular systolic function.
Left ventricular ejection fraction is 55% by volumetric assessment.
Severely hypokinetic mid to apical septum with thinning of the apical septal
wall with a dyskinetic apex.
Mild concentric left ventricular hypertrophy.
Stage I diastolic dysfunction suggestive of abnormal relaxation.
Severe mitral annular calcification with mild functional mitral stenosis.
Aortic sclerosis.
No prior study available for comparison.
ASSESSMENT & PLAN
TME 2/2 UTI
ESBL UTI
-unfortunately urine culture with ESBL, resistant to Levaquin
-briefly discussed with ID, recommended Macrobid x 10 days
-OK to dC on Macrobid - patient compliant with taking pills given
AMS suspect TME due to UTI +/_ acute pul edema
Associated with unwitnessed fall: No apparent injury
HX Keflex allergy ? Low platelet
- NEG HCT
- treatment UTI as above
- fall precaution
- PT/OT/ST
HFpEF acute exacerbation
HX Chronic Lymphedema
Stable and elevated pro BNP
-TTE results above - EF 55% severely hypokinetic mid to apical setptum with thinning apical setal wall without prior at [facility]. Per cardiology review of old records patient has refused aggressive work-up in past.
- CBC card consult appreciated
- now transitioned to oral lasix
Mild Hypercalcemia
-stable ~ 11
-will give small bolus back, continue lasix
Acute COPD exacerbation
-continue home inhalers
-persistence of wheezing on exam post diuresis and prednisone initiated on 07/08. stop further prednisone as may be contributing to agitation (see below)
Dementia
Delirium
Anxiety/Agitation
-may be AE prednisone
-discussed with RN, will administer PRN Xanax
-daughter confirms this behavior is common
-zyprexa daily in addition to qhs - hold for sedation
JULIUS
-improved with diuresis
-continue to trend
- No longer on Losartan as last DC meds list
Bilateral PuE HX
- Diagnosed in 02/2023 at an outside institution.
- per tiera patient was to be back on Eliquis with normal PLT --> resumed this Admission
Chronic Lymphedema
RLE Ulcers / Excoriations
- Stable. Does not appear acutely infected.
- Local care.
DVT Px: eliquis
Code: full
IP TLM
Anticipated Discharge: Today
Subjective/Interval History
-
Date of Service: July 12, 2023
comfortably resting
was calm with ativan overnight per RN
Objective Data
-
Vital Signs:
Vital Signs
Temp Pulse Resp BP Pulse Ox
98.4 F 85 18 132/68 95
07/12/23 07:00 07/12/23 07:00 07/12/23 07:00 07/12/23 07:00 07/12/23 07:00
I&O
07/11/23 07/12/23 07/13/23
06:59 06:59 06:59
Intake Total 580 / 580 390 / 390
Output Total 900 / 900
Balance -320 / -320 390 / 390
Review of Systems
-
Unable to obtain full review of systems at this time due to: Dementia
History Source: Patient
Physical Exam
-
General: Other (anxious, screaming out )
HEENT: PERRLA
Respiratory: Other (decreased wheezing)
Cardiac: Regular Rhythm and S1/S2
GI: Soft and Nontender
Neuro: Awake, Alert and Other (anxious )
Psych: Agitated
Data Reviewed
-
Diagnostic Radiology: Report Reviewed by me
Labs: Labs Reviewed by me
[2023-07-12] MEDS: ELIQUIS 5 MG PO (10:05)
[2023-07-12] MEDS: LASIX 40 MG PO (10:06)
[2023-07-12] MEDS: PROTONIX 40 MG PO (10:06)
[2023-07-12] MEDS: MYRBETRIQ EXTENDED RELEASE 50 MG PO (10:06)
[2023-07-12] MEDS: ZYPREXA 2.5 MG PO (10:06)
[2023-07-12] MEDS: MACROBID 100 MG PO (10:07)
[2023-07-12] MEDS: HYDROPHOR 1 APPLIC TOPICAL (10:07)
[2023-07-12] MEDS: DESENEX/MITRAZOL/ZEASORB 1 APPLIC TOPICAL (10:07)
[2023-07-12] MEDS: ABILIFY 5 MG PO (10:07)
[2023-07-12] MEDS: TOPROL XL 50 MG PO (10:07)
[2023-07-12] MEDS: ASACOL, DELZICOL DR 800 MG PO ×2 (10:08→15:55)
[2023-07-12] MEDS: ARISTOCORT/TRIAMCINOLONE 0.1% CREAM 1 APPLIC TOPICAL (10:09)
[2023-07-12] MEDS: VITAMIN D3 (cholecalciferol) 25 MCG PO (10:09)
--- NOTE | 2023-07-12 10:11 | W.DS.TRANS ---
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
-
Discharge Instructions:
Discharge Diagnosis/Procedures toxic metabolic encephalopathy in setting of
urinary tract infection; heart failure preserved
ejection fraction acute exacerbation
Diet Low Sodium
Activity As tolerated
Driving Restrictions No driving
Bathing Restrictions None
Blood Work CBC and BMP in one week
Other Services PT,OT
Instructions: *PCP/Other Revenue Inspector Heart Failure Instructions
Stand-Alone Forms:
Changes to Home Medications: Yes
Discharge Medications:
DC Medications w/original date entered in [facility]
mesalamine 1.2 gram tablet,delayed release (Lialda) 2.4 g PO DAILY Gastrointestinal Issue 05/16/18
metoprolol succinate 50 mg tablet,extended release 24 hr 50 mg PO DAILY Heart Disease/Condition 05/16/18
acetaminophen 325 mg tablet 650 mg PO Q6H PRN mild pain 04/24/23
bisacodyl 10 mg rectal suppository (Dulcolax (bisacodyl)) 10 mg MO DAILY PRN if no results for MOM 04/24/23
furosemide 40 mg tablet 40 mg PO DAILY Fluid Retention/Swelling 04/24/23
ipratropium 0.5 mg-albuterol 3 mg (2.5 mg base)/3 mL nebulization soln 3 ml inhalation R BID Lung/Breathing Issues 04/24/23
magnesium hydroxide 400 mg/5 mL oral suspension (Milk of Magnesia) 30 ml PO HSPRN PRN if no BM x 3 days 04/24/23
melatonin 5 mg tablet 5 mg PO HS Sleep 04/24/23
mirabegron 50 mg tablet,extended release 24 hr (Myrbetriq) 50 mg PO DAILY overactive bladder 04/24/23
nystatin 100,000 unit/gram topical powder 1 applic topical DAILY abd folds 04/24/23
triamcinolone acetonide 0.1 % topical cream 1 applic topical BID apply to B/L LE for skin irritation 04/24/23
wound dressings (Triad Wound Dressing paste) 1 applic topical BID apply to inner buttocks 04/24/23
acetaminophen 325 mg tablet (Tylenol) 650 mg PO Q4H PRN temp 100 or above 07/08/23
alprazolam 0.5 mg tablet (Xanax) 0.5 mg PO DAILY PRN anxiety #5 tabs 07/12/23
apixaban 5 mg tablet (Eliquis) 5 mg PO BID #60 tabs 07/12/23
ipratropium 0.5 mg-albuterol 3 mg (2.5 mg base)/3 mL nebulization soln 3 ml inhalation R Q4HPRN PRN SOB or wheezing #90 mL 07/12/23
miconazole nitrate 2 % topical powder (Miconazorb AF) 1 applic topical BID #85 grams 07/12/23
nitrofurantoin monohydrate/macrocrystals 100 mg capsule 100 mg PO BID #18 caps 07/12/23
olanzapine 2.5 mg tablet 2.5 mg PO DAILY #30 tabs 07/12/23
Home Medication Changes
Stop Losartan and Diltiazem (these were taken off medication list last admission) Your blood pressure and heart rate were stable off of these medications in the hospital.
You are resumed on Eliquis twice a day for prevention of lung clots. Your Platelet count normalized. Please discuss length of time on Eliquis with your outpatient physicians.
You are prescribed 9 additional days of Macrobid (10 days total) for treatment of UTI.
Zyprexa 2.5mg daily (hold for sedation) is added to med list.
Pending Results: No
--- NOTE | 2023-07-12 12:12 | CM ---
Addendum entered by Willa Stokes 07/12/23 12:20:
Called pts [phone] - LM regarding d/c today and transport time
Called pts daughter Bijal, - informed pt to be d/c'ed today and of transport time
Discussed IMM
Original Note:
Pt seen at bedside for d/c today
Pt is LTC at [facility]
Plan - skilled rehab
Spoke with Jazmine at [facility] - can accept
Transport arranged for 5PM
Jazmine at [facility] aware
Plan - transfer to [facility]
report [phone]
fax [phone]
[2023-07-12 12:17] LABS: Intact PTH 102.8 pg/ml (13.6-85.8)
--- NOTE | 2023-07-12 14:14 | W.DCSUMMARY ---
Discharge Summary
Discharge Data
Date of Admission: 07/07/23
Date of Discharge: 07/12/23
-
Pending Results: No
Hospital Course
Discharging Physician : Dr. Lucy Zavala
Disposition : [place]/SNF
Principal Discharge diagnosis : toxic metabolic encephalopathy secondary to urinary tract infection; heart failure preserved ejection fraction acute exacerbation
Hospital Course :
Ms. Tran Chaney is a 82 yo woman with past medical history dementia, HFpEF, COPD, GERD, hypertension, UC, agitation/anxiety presents to the ER after found down on floor by nursing staff. Patient unable to provide history on admission. Triage
vitals stable. Labs with creatinine 1.1 CXR with e/o heart failure. Head CT without acute event. UA with inflammation.
Patient was admitted to medicine with cardiology consulting for heart failure. She was started on antibiotics for UTI.
Regarding heart failure, she was diuresed during hospitalization with improvement in renal function and respiratory status. Weight on day of discharge is 92.7kg. TTE with EF 55% and finding of severely hypokinetic mid to apical septum. Patient has
refused aggressive work-up in the past. Medical therapy continued.
Regarding UTI, patient was initially on Levaquin given prior allergies but culture returned as ESBL. Case discussed with ID and she is prescribed a 10 day course of Macrobid.
Patient's PLT were stable and given prior PE diagnosed in February, she is resumed on her [employer] Eliquis. This is to be further discussed with outpatient physicians.
Patient had agitation/anxiety during hospitalization requiring intermittent Ativan (ordered for Alprazolam PRN at facility). Her Zyprexa is increased to include 2.5mg in morning. This is to be further adjusted at SNF.
Time spent on discharge was 40 minutes.
Important imaging findings :
CXR 07/07/23
IMPRESSION:
1. Moderate acute interstitial and alveolar cardiogenic pulmonary edema.
2. Mild subpleural opacity in the lower lungs which is likely subsegmental atelectasis and scarring. If there are signs/symptoms of pulmonary infection, left lower lobe pneumonia is a alternative diagnostic possibility.
3. Moderate cardiomegaly.
4. Mildly to moderately decreased bilateral lung volumes.
HEAD CT
IMPRESSION:
1. No CT evidence for acute intracranial hemorrhage or transcortical infarct.
2. Severe white matter leukoaraiosis in the frontal and parietal lobes which appears unchanged.
3. Moderate diffuse dilatation of the ventricular system which appears unchanged and out of proportion to the degree of volume loss in the brain. Diagnostic possibilities are (1) normal pressure communicating hydrocephalus or (2) ex vacuo
ventricular dilatation.
4. 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
TTE 07/08/23
CONCLUSIONS
Normal global left ventricular systolic function.
Left ventricular ejection fraction is 55% by volumetric assessment.
Severely hypokinetic mid to apical septum with thinning of the apical septal
wall with a dyskinetic apex.
Mild concentric left ventricular hypertrophy.
Stage I diastolic dysfunction suggestive of abnormal relaxation.
Severe mitral annular calcification with mild functional mitral stenosis.
Aortic sclerosis.
No prior study available for comparison.
Procedure findings :
Discharge Plan
-
Patient Disposition: [facility]/SNF
Discharge Diagnosis/Procedures: toxic metabolic encephalopathy in setting of urinary tract infection; heart failure preserved ejection fraction acute exacerbation
Diet: Low Sodium
Activity: As tolerated
Driving Restrictions: No driving
Bathing Restrictions: None
Blood Work: CBC and BMP in one week
Other Services: PT and OT
Activity Restrictions/Additional Instructions:
Wound Care Instructions
clean with soap and water, skin prep periwound, Exuderm thin folded into cleft, change q 2-3 days and prn soilage. If does not hold can use barrier cream.
Sacrum: silicone foam to protect, change q 3 days
Heels: skin prep and adhesive foams change q 3 days
mineral oil to dry skin on legs daily
fungal powder in skin folds after cleaning.
air mattress
air cushion when sitting
Follow up at wound care center call for an appointment.
Instructions: *PCP/Other Township Clerk Heart Failure Instructions
Referrals:
UNKNOWN - PT DOES,NOT KNOW [Family Provider] - in less than 1 week
Additional Discharge Medication Instructions: Stop Losartan and Diltiazem (these were taken off medication list last admission) Your blood pressure and heart rate were stable off of these medications in the hospital.
You are resumed on Eliquis twice a day for prevention of lung clots. Your Platelet count normalized. Please discuss length of time on Eliquis with your outpatient physicians.
You are prescribed 9 additional days of Macrobid (10 days total) for treatment of UTI.
Zyprexa 2.5mg daily (hold for sedation) is added to med list.
Continue lasix 40mg daily.
Prescriptions:
New
miconazole nitrate [Miconazorb AF] 2 % Powder
1 applic topical BID Qty: 85 0RF
ipratropium-albuterol 0.5 mg-3 mg(2.5 mg base)/3 mL Solution For Nebulization
3 ml inhalation R Q4HPRN PRN (Reason: SOB or wheezing) Qty: 90 0RF
Eliquis 5 mg Tablet
5 mg PO BID Qty: 60 0RF
olanzapine 2.5 mg Tablet
2.5 mg PO DAILY Qty: 30 0RF
Rx Instructions:
HOLD FOR SEDATION
nitrofurantoin monohyd/m-cryst 100 mg Capsule
100 mg PO BID Qty: 18 0RF
Continued
metoprolol succinate 50 MG tablet extended release 24 hr
50 mg PO DAILY
mesalamine [Lialda] 1.2 GM tablet,delayed release (DR/EC)
2.4 g PO DAILY
furosemide 40 mg Tablet
40 mg PO DAILY
acetaminophen 325 mg Tablet
650 mg PO Q6H MDD 3000 mg PRN (Reason: mild pain)
ipratropium-albuterol 0.5 mg-3 mg(2.5 mg base)/3 mL Solution For Nebulization
3 ml INHALATION R BID
Triad Wound Dressing Paste
1 applic TOPICAL BID
triamcinolone acetonide 0.1 % cream
1 applic TOPICAL BID
magnesium hydroxide [Milk of Magngloria] 400 mg/5 mL Suspension
30 ml PO HSPRN PRN (Reason: if no BM x 3 days)
bisacodyl [Dulcolax (bisacodyl)] 10 mg Suppository
10 mg [place] DAILY PRN (Reason: if no results for MOM)
nystatin 100,000 unit/gram Powder
1 applic TOPICAL DAILY
melatonin 5 mg Tablet
5 mg PO HS
Myrbetriq 50 mg tablet extended release 24 hr
50 mg PO DAILY
acetaminophen [Tylenol] 325 mg Tablet
650 mg PO Q4H PRN (Reason: temp 100 or above)
alprazolam [Xanax] 0.5 mg Tablet
0.5 mg PO DAILY PRN (Reason: anxiety) Qty: 5 0RF
Discontinued
diltiazem HCl 240 mg capsule,extended release 24hr
240 mg PO DAILY
losartan [Cozaar] 50 mg Tablet
50 mg PO DAILY
Discharge Orders:
Discharge Patient (As Directed); Ordered 07/12/23
Ordered By: Lucy Zavala
Discharge Date and Time
Print Language: PORTUGUESE
[2023-07-12 15:00] VITALS: BP 135/64
[2023-07-12] MEDS: ATIVAN 0.25 MG IV (17:38)
== END 2023-07-12 18:33 | DRG 291 ==
LOC: 3 WEST ACU 22:29
PROVIDERS: Nurse Practitioner; Registered Nurse; ADMITTING PHYSICIAN Internal Medicine; ATTENDING PHYSICIAN Student in an Organized Health Care Education/Training Program; EMERGENCY PHYSICIAN Emergency Medicine; OTHER PHYSICIAN Internal Medicine Interventional Cardiology
DX: I11.0 Hypertensive heart disease with heart failure (principal); G92.8 Other toxic encephalopathy; I26.99 Other pulmonary embolism without acute cor pulmonale; I50.33 Acute on chronic diastolic (congestive) heart failure; N39.0 Urinary tract infection, site not specified; K51.90 Ulcerative colitis, unspecified, without complications; J98.11 Atelectasis; N17.9 Acute kidney failure, unspecified; F03.94 Unspecified dementia, unspecified severity, with anxiety; L97.919 Non-pressure chronic ulcer of unspecified part of right lower leg with unspecified severity; J44.1 Chronic obstructive pulmonary disease with (acute) exacerbation; F05 Delirium due to known physiological condition; E66.09 Other obesity due to excess calories; K76.1 Chronic passive congestion of liver; I89.0 Lymphedema, not elsewhere classified; R26.9 Unspecified abnormalities of gait and mobility; J44.9 Chronic obstructive pulmonary disease, unspecified; K21.9 Gastro-esophageal reflux disease without esophagitis; L89.152 Pressure ulcer of sacral region, stage 2; L89.322 Pressure ulcer of left buttock, stage 2; R45.1 Restlessness and agitation; E83.52 Hypercalcemia; I08.0 Rheumatic disorders of both mitral and aortic valves; I95.9 Hypotension, unspecified; D69.6 Thrombocytopenia, unspecified; W19.XXXA Unspecified fall, initial encounter; Y93.9 Activity, unspecified; Y92.129 Unspecified place in nursing home as the place of occurrence of the external cause; Z86.711 Personal history of pulmonary embolism; Z79.01 Long term (current) use of anticoagulants; Z88.1 Allergy status to other antibiotic agents; Z86.73 Personal history of transient ischemic attack (TIA), and cerebral infarction without residual deficits; Z68.39 Body mass index [BMI] 39.0-39.9, adult; Z11.52 Encounter for screening for COVID-19; Z99.3 Dependence on wheelchair; Z66 Do not resuscitate
CPT/HCPCS: 70450; 71046; 80048; 80053; 80061; 81003; 81015; 82248; 82306; 83605; 83735; 83880; 83970; 84439; 84443; 85025; 85027; 87070; 87077; 87086; 87147; 87186; 87502; 87811; 92610; 93005; 93306; 94640; 96374; 96375; 97530; 99285